=== PATIENT | female | born 1975 | race Caucasian/White ===

== ENCOUNTER 2019-09-11 07:04 | Outpatient (CLI) | payer BC, SELFPAY ==
--- NOTE | ~2019-09-11 | MM_ITS ---
EXAMINATION: MM screening [facility] BI w subhash HISTORY: Screening mammogram TECHNIQUE: Craniocaudal and mediolateral oblique 3-D tomosynthesis images were obtained and synthetic 2-D images were generated. CAD analysis was submitted and interpreted. COMPARISON: 04/04/2018, 03/10/2017, 09/07/2014 BREAST PARENCHYMAL COMPOSITION: There are scattered areas of fibroglandular density. FINDINGS: There is no evidence of suspicious mass, calcification, or architectural distortion to sugg est malignancy in either breast. There has been no suspicious interval change. IMPRESSION: 1. No mammographic evidence of malignancy. 2. Recommend routine screening mammography in one year. BI-RADS Category 1: Negative Reviewed, dictated and finalized at location A. [facility] [employer]
== END 2019-09-11 07:05 | disposition home or self-care (01) ==
LOC: ANHIMG 07:09
PROVIDERS: PCP Internal Medicine; Visit Provider Obstetrics & Gynecology
DX: Z12.31 Encounter for screening mammogram for malignant neoplasm of breast (principal)
CPT/HCPCS: 77063; 77067

== ENCOUNTER → 2020-12-27 06:39 | Outpatient (CLI) | payer BC, SELFPAY ==
[2020-12-27 19:22] LABS: SARS-CoV-2 RNA PCR Negative
== END ==
PROVIDERS: PCP Family Medicine; Visit Provider Internal Medicine Gastroenterology
DX: Z01.812 Encounter for preprocedural laboratory examination (principal); Z20.822 Contact with and (suspected) exposure to COVID-19
CPT/HCPCS: C9803; U0003; U0005

== ENCOUNTER 2020-12-30 01:31 | Day surgery (SDC) | payer BC, SELFPAY ==
[2020-12-20 13:41] VITALS: BMI 30.7
[2020-12-30 10:01] VITALS: BP 111/73; PULSE 69; RESP 18; TEMP 36.9; O2SAT 98; BMI 32.4
[2020-12-30] MEDS: LACTATED RINGERS 1,000 ML 150 ML IV CONT (10:13)
--- NOTE | 2020-12-30 10:34 | WPDANESEPPF ---
Anes - Initial Pre Proc Eval Procedure: Operation Date: 12/30/20 10:30 Proposed Procedures p Esophagogastroduodenoscopy - Paras Davies MD Date/Time: 12/30/20 10:34 Surgeon: Paras Davies MD Pre Op Diagnosis: dysphagia Patient Data Age: 45 Gender: F Height: 5 ft 7 in Weight: 93.9 kg Last Vital Signs Temp 36.9 C 12/30/20 10:01 Pulse 69 12/30/20 10:01 Resp 18 12/30/20 10:01 BP 111/73 12/30/20 10:01 Pulse Ox 98 12/30/20 10:01 Allergies Allergy/AdvReac Type Severity Reaction Status Date / Time amoxicillin Allergy Mild Rash Verified 12/30/20 10:00 propoxyphene Allergy Mild NAUSEA/VOMI Verified 12/30/20 10:00 TING bupropion Allergy Unknown SEIZURE Verified 12/30/20 10:00 erythromycin base Allergy Unknown N/V;DIZZINE Verified 12/30/20 10:00 SS latex Allergy Unknown RASH, Verified 12/30/20 10:00 ITCHING Penicillins Allergy Unknown RASH Verified 12/30/20 10:00 Home Medications Medication Instructions Recorded Confirmed Type multivitamin 1 tablet PO DAILY 09/19/19 12/30/20 History sumatriptan succinate 100 mg tablet See Rx Instructions PO .COMPLEX 03/25/20 12/30/20 Rx #10 tablet sertraline 50 mg tablet 50 mg PO DAILY #30 tablet 10/14/20 12/30/20 Rx phentermine 37.5 mg capsule 37.5 mg PO DAILY #20 cap 11/25/20 12/30/20 Rx valacyclovir 500 mg tablet 500 mg PO DAILY #30 tablet 11/25/20 12/30/20 Rx trazodone 50 mg tablet 50 mg PO QHS PRN #30 tablet 12/04/20 12/30/20 Rx omeprazole 40 mg capsule,delayed 40 mg PO DAILY #90 cap 12/09/20 12/30/20 Rx release spironolactone 100 mg PO DAILY 12/20/20 12/30/20 History Patient hx anesthesia problems: none Family hx anesthesia problems: none PMFSH Past Medical History Medical History Adult BMI 31.0-31.9 kg/sq m Weight gain Surgical History Surgical History History of gastric surgery History of loop recorder History of removal of ovarian cyst Hx of dilation and curettage Hx of tubal ligation Family History Family History Father Family history of migraine headaches Hypertension Sibling Hypertension Other Diabetes mellitus Family history of cardiovascular disease Social History Social History Smoking status: Never smoker Second hand tobacco smoke exposure: Yes Alcohol intake: never Substance use: never Substance use type: does not use Living arrangements: with family Spiritual care concerns: No Anes - Eval Final PreProcedure Day of Procedure 12/30/20 10:34 Patient weight: obese Heart: regular rate and rhythm Lungs: clear to auscultation Airway: Mallampati scale class 1 Neurological: alert and oriented Last oral intake: >/= 8 hours ASA classification: II Emergent: no Anesthetic plan: proceed Anesthesia type and monitoring: general GIVS and standard monitoring Informed Consent: The patient's anesthetic plan and its attendant risks and benefits were discussed with the patient/family/POA. Questions were solicited and answers provided to the satisfaction of the patient/family/POA.
--- NOTE | 2020-12-30 10:40 | PM.HPGS ---
History of Present Illness History of Present Illness Consent: Risks, benefits, and alternatives have been discussed and questions answered. Patient agrees to proceed with procedure. Chief complaint: dysphagia Narrative: Nat Riley is a 45 year old female with increasing difficulty swallowing. She has in the past been diagnosed with eosinophilic esophagitis. For a while she was on omeprazole but now uses only [id number] medicines. She does not have a significant amount of heartburn. She also has a left upper quadrant pain, a brief grabbing pain. Review of Systems Review of Systems: All systems reviewed & are unremarkable except as noted in HPI and below PMFSH Past Medical History Medical History Adult BMI 31.0-31.9 kg/sq m Weight gain Surgical History Surgical History History of gastric surgery History of loop recorder History of removal of ovarian cyst Hx of dilation and curettage Hx of tubal ligation Family History Family History Father Family history of migraine headaches Hypertension Sibling Hypertension Other Diabetes mellitus Family history of cardiovascular disease Social History Social History Smoking status: Never smoker Second hand tobacco smoke exposure: Yes Alcohol intake: never Substance use: never Substance use type: does not use Living arrangements: with family Spiritual care concerns: No Meds Home Medications and Allergies Home Medications Medication Instructions Recorded Confirmed Type multivitamin 1 tablet PO DAILY 09/19/19 12/30/20 History sumatriptan succinate 100 mg tablet See Rx Instructions PO .COMPLEX 03/25/20 12/30/20 Rx #10 tablet sertraline 50 mg tablet 50 mg PO DAILY #30 tablet 10/14/20 12/30/20 Rx phentermine 37.5 mg capsule 37.5 mg PO DAILY #20 cap 11/25/20 12/30/20 Rx valacyclovir 500 mg tablet 500 mg PO DAILY #30 tablet 11/25/20 12/30/20 Rx trazodone 50 mg tablet 50 mg PO QHS PRN #30 tablet 12/04/20 12/30/20 Rx omeprazole 40 mg capsule,delayed 40 mg PO DAILY #90 cap 12/09/20 12/30/20 Rx release spironolactone 100 mg PO DAILY 12/20/20 12/30/20 History Allergies Allergy/AdvReac Type Severity Reaction Status Date / Time amoxicillin Allergy Mild Rash Verified 12/30/20 10:00 propoxyphene Allergy Mild NAUSEA/VOMI Verified 12/30/20 10:00 TING bupropion Allergy Unknown SEIZURE Verified 12/30/20 10:00 erythromycin base Allergy Unknown N/V;DIZZINE Verified 12/30/20 10:00 SS latex Allergy Unknown RASH, Verified 12/30/20 10:00 ITCHING Penicillins Allergy Unknown RASH Verified 12/30/20 10:00 Vital Signs Vital Signs - 24 hr 12/30/20 10:01 Temperature 36.9 C Pulse Rate 69 Respiratory Rate 18 Blood Pressure 111/73 Pulse Oximetry 98 Exam Const: General: alert Orientation/consciousness: patient oriented x3 Resp: Auscultation: clear to auscultation bilaterally Cardio: Rhythm: regular rhythm GI: GI Palp: Yes Soft to palpation and No Tenderness to palpation present (GI) Neuro: General: patient oriented x3 Assessment and Plan Assessment and plan (1) Dysphagia: Code(s): R13.10 - Dysphagia, unspecified Status: Acute Assessment and Plan: EGD with possible biopsy or dilatation or cautery.
[2020-12-30 11:10] VITALS: BP 101/59; PULSE 76; RESP 21; O2SAT 97
--- NOTE | 2020-12-30 11:11 | SUR.OPER ---
esophageal balloon 15-18 mm, lot [id number], exp 10/10/2022
[2020-12-30 11:20] VITALS: BP 105/76; PULSE 79; RESP 28; O2SAT 97
[2020-12-30 11:30] VITALS: BP 108/64; PULSE 59; RESP 17; O2SAT 98
== END 2020-12-30 11:45 | disposition home or self-care (01) ==
PROVIDERS: PCP Family Medicine; Visit Provider Internal Medicine Gastroenterology
PROC: 0DJ08ZZ Inspection of Upper Intestinal Tract, Via Natural or Artificial Opening Endoscopic (ICD-10-PCS; CPT 43235; principal; 2020-12-30 10:30)
DX: R13.10 Dysphagia, unspecified (principal); K22.2 Esophageal obstruction; K20.0 Eosinophilic esophagitis; K25.9 Gastric ulcer, unspecified as acute or chronic, without hemorrhage or perforation; K29.70 Gastritis, unspecified, without bleeding
CPT/HCPCS: 43249; 43239; 87081; 88305; C1726; J2704; J7120

== ENCOUNTER 2021-02-24 07:20 | Outpatient (CLI) | payer BC, SELFPAY ==
--- NOTE | ~2021-02-24 | MM_ITS ---
EXAMINATION: MM screening [facility] w subhash HISTORY: Screening TECHNIQUE: Craniocaudal and mediolateral oblique 3-D tomosynthesis images were obtained and synthetic 2-D images were generated. CAD analysis was submitted and interpreted. COMPARISON: Comparison to multiple prior studies sequentially, with oldest reviewed study dated 09/07. BREAST PARENCHYMAL COMPOSITION: There are scattered areas of fibroglandular density. FINDINGS: There is no evidence of suspicious mass, calcification, or architectural distortion to sugg est malignancy in either breast. There has been no suspicious interval change. IMPRESSION: 1. No mammographic evidence of malignancy. 2. Recommend routine screening mammography in one year. BI-RADS Category 1: Negative Reviewed, dictated and finalized at location A.
== END 2021-02-24 07:21 | disposition home or self-care (01) ==
LOC: ANHIMG 07:23
PROVIDERS: PCP Family Medicine; Visit Provider Obstetrics & Gynecology
DX: Z12.31 Encounter for screening mammogram for malignant neoplasm of breast (principal)
CPT/HCPCS: 77063; 77067

== ENCOUNTER → 2021-04-24 00:27 | Outpatient (CLI) | payer BC, SELFPAY ==
[2021-04-24 19:52] LABS: SARS-CoV-2 RNA PCR Negative
== END ==
PROVIDERS: PCP Family Medicine; Visit Provider Physician Assistant Medical
DX: J02.9 Acute pharyngitis, unspecified (principal); R51.9 Headache, unspecified; Z20.822 Contact with and (suspected) exposure to COVID-19
CPT/HCPCS: C9803; U0003; U0005

== ENCOUNTER → 2021-08-07 01:31 | Outpatient (CLI) | payer BC, SELFPAY ==
[2021-08-07 20:34] LABS: SARS-CoV-2 RNA PCR Negative
== END ==
PROVIDERS: PCP Family Medicine; Visit Provider Nurse Practitioner Family
DX: R68.89 Other general symptoms and signs (principal); Z20.822 Contact with and (suspected) exposure to COVID-19
CPT/HCPCS: C9803; U0003; U0005

== ENCOUNTER 2021-11-09 13:41 | Outpatient (CLI) | payer BC, SELFPAY ==
--- NOTE | ~2021-11-09 | XR_ITS ---
EXAM: XR knee LT 2V HISTORY: M25.562 - TWISTING INJURY 5 DAYS AGO, PAIN ENTIRE KNEE COMPARISON: None available FINDINGS: Subjectively decreased mineralization. No acute fracture or dislocation. Mild patellofemor al osteophytosis. Small volume joint effusion. Faintly calcified spherical bodies in the anterior michael nt possibly represent loose joint bodies. No lytic or blastic lesions. IMPRESSION: No acute osseous abnormality. Degenerative changes described above. Reviewed, dictated and finalized at location K.
== END 2021-11-09 13:42 | disposition home or self-care (01) ==
LOC: ANHIMG 13:44
PROVIDERS: PCP Family Medicine; Visit Provider Physician Assistant Medical
DX: M25.562 Pain in left knee (principal)
CPT/HCPCS: 73560

== ENCOUNTER 2021-12-22 17:05 | Outpatient (CLI) | payer BC, SELFPAY ==
--- NOTE | ~2021-12-22 | MR_ITS ---
EXAMINATION: MR knee LT wo con DATE: 12/22/2021 17:46 INDICATION: EXAMINATION: MR knee LT wo con DATE: 12/22/2021 17:46 INDICATION: Lateral left knee pain. TECHNIQUE: Magnetic resonance imaging (MRI) of the left knee was performed without intravenous contra st. Sequences included axial PD-weighted FS FSE, coronal PD-weighted FSE and PD-weighted FS FSE, sagi ttal PD-weighted FSE, and sagittal T2-weighted FS FSE. COMPARISON: X-ray 11/09/2021 FINDINGS: Medial compartment: Obliquely oriented undersurface tear of the posterior horn and body of the medial meniscus. Mild diff use cartilage thinning and osteophytosis. Lateral compartment: Intact lateral meniscus. Mild cartilage thinning and osteophytosis. Patellofemoral compartment: Full-thickness cartilage loss along the median ridge with subjacent marrow change. Retinacula and ext ensor mechanism are intact. Ligaments and tendons: ACL, PCL, LCL, and MCL are intact. Medial and lateral tendons are intact. Fluid: Moderate volume joint fluid is present. Osseous/other: Bone marrow signal is benign and homogenous. 11 and 7 mm rounded mixed signal intensity lesions withi n the infrapatellar fat pad with some adjacent edematous change IMPRESSION: 1. Oblique tear of the posterior horn/body, medial meniscus. 2. The calcified areas seen in the prior radiograph likely represent chronic changes in the infrapate llar fat pad. 3. Chondromalacia patellae. Reviewed, dictated and finalized at location K. IMPRESSION: 1. Oblique tear of the posterior horn/body, medial meniscus. 2. The calcified areas seen in the prior radiograph likely represent chronic ch anges in the infrapatellar fat pad. 3. Chondromalacia patellae.
== END 2021-12-22 17:06 ==
PROVIDERS: PCP Family Medicine; Visit Provider Physician Assistant Medical
DX: S83.242A Other tear of medial meniscus, current injury, left knee, initial encounter (principal); X58.XXXA Exposure to other specified factors, initial encounter
CPT/HCPCS: 73721

== ENCOUNTER → 2022-01-16 02:21 | Outpatient (CLI) | payer BC, SELFPAY ==
[2022-01-16 16:50] LABS: SARS-CoV-2 RNA PCR Negative
== END ==
PROVIDERS: PCP Orthopaedic Surgery; Visit Provider Orthopaedic Surgery
DX: R68.89 Other general symptoms and signs (principal); Z20.822 Contact with and (suspected) exposure to COVID-19
CPT/HCPCS: C9803; U0003; U0005

== ENCOUNTER 2022-03-02 07:39 | Outpatient (CLI) | payer BC, SELFPAY ==
--- NOTE | ~2022-03-02 | MM_ITS ---
EXAMINATION: MM screening [facility] w subhash HISTORY: Screening mammogram TECHNIQUE: Craniocaudal and mediolateral oblique 3-D tomosynthesis images were obtained and synthetic 2-D images were generated. CAD analysis was submitted and interpreted. COMPARISON: 02/24/2021, 09/11/2019, 04/04/2018 bilateral screening mammogram examinations BREAST PARENCHYMAL COMPOSITION: There are scattered areas of fibroglandular density. FINDINGS: There is no evidence of suspicious mass, calcification, or architectural distortion to sugg est malignancy in either breast. There has been no suspicious interval change. IMPRESSION: 1. No mammographic evidence of malignancy. 2. Recommend routine screening mammography in one year. BI-RADS Category 1: Negative Reviewed, dictated and finalized at location A.
== END 2022-03-02 07:40 | disposition home or self-care (01) ==
LOC: ANHIMG 07:44
PROVIDERS: PCP Family Medicine; Visit Provider Obstetrics & Gynecology
DX: Z12.31 Encounter for screening mammogram for malignant neoplasm of breast (principal)
CPT/HCPCS: 77063; 77067

== ENCOUNTER 2022-12-17 01:37 | Day surgery (SDC) | payer BC, SELFPAY ==
[2022-12-07 14:46] VITALS: BMI 32.4
--- NOTE | 2022-12-16 15:44 | PM.HPGS ---
History of Present Illness History of Present Illness Consent: Risks, benefits, and alternatives have been discussed and questions answered. Patient agrees to proceed with procedure. Chief complaint: eosinophilic esophagitis, dysphagia Narrative: Nat Riley is a 47 year old female known to have eosinophilic esophagitis. She has previously had several treatments for esophageal stricture. A few years ago, her last EGD revealed a Schatzki's ring that which was dilated. Also biopsies continued to show persistent high eosinophil count of 70 per high-power field. She has used omeprazole in the past but now is primarily using [id number] Tums for symptoms she is having more frequent episodes of dysphagia with food getting stuck. Review of Systems Review of Systems: All systems reviewed & are unremarkable except as noted in HPI and below PMFSH Past Medical History Medical History (Updated 11/23/22 @ 11:16 by Carolina Conde, [employer]) Adult BMI 31.0-31.9 kg/sq m BMI 33.0-33.9,adult BMI 34.0-34.9,adult Colon cancer screening Dysphagia Eosinophilic esophagitis Gastritis Medial meniscus tear Weight gain Surgical History Surgical History History of gastric surgery History of loop recorder History of removal of ovarian cyst Hx of dilation and curettage Hx of tubal ligation Family History Family History Father Family history of migraine headaches Hypertension Malignant neoplasm of prostate Sibling Hypertension Suicide Mother No problems noted. Other Diabetes mellitus Family history of cardiovascular disease Social History Social History Social History: Recently lost brother to suicide. Smoking status: Never smoker Second hand tobacco smoke exposure: Yes Alcohol intake: never Alcohol use details: 2 PER YEAR Substance use: never Substance use type: does not use Living arrangements: with family Occupation/Education: occupation Additional occupation/education comments: [employer] Gender identity (if verbalized by the patient): Female Sexual Orientation (if Verbalized by the Patient): Straight or Heterosexual Spiritual care concerns: No Meds Home Medications and Allergies Home Medications Medication Instructions Recorded Confirmed Type multivitamin 1 tablet PO DAILY 09/19/19 12/17/22 History alprazolam 0.5 mg tablet 0.25 mg PO BID PRN anxiety 04/01/22 12/17/22 History cholecalciferol (vitamin D3) 125 125 mcg PO DAILY 04/01/22 12/17/22 History mcg (5,000 unit) tablet (Vitamin D3) valacyclovir 500 mg tablet 500 mg PO DAILY PRN Cold Sores 04/01/22 12/17/22 History fluticasone propionate 220 2 puff .Route .COMPLEX #12 grams 11/23/22 12/17/22 Rx mcg/actuation HFA aerosol inhaler omeprazole 40 mg capsule,delayed 40 mg PO DAILY #30 caps 11/23/22 12/17/22 Rx release Allergies Allergy/AdvReac Type Severity Reaction Status Date / Time amoxicillin Allergy Mild Rash Verified 12/17/22 09:33 propoxyphene Allergy Mild NAUSEA/VOMI Verified 12/17/22 09:33 TING bupropion Allergy Unknown SEIZURE Verified 12/17/22 09:33 erythromycin base Allergy Unknown N/V;DIZZINE Verified 12/17/22 09:33 SS latex Allergy Unknown RASH, Verified 12/17/22 09:33 ITCHING Penicillins Allergy Unknown RASH Verified 12/17/22 09:33 Exam Const: General: alert Orientation/consciousness: patient oriented x3 Resp: Auscultation: clear to auscultation bilaterally Cardio: Rhythm: regular rhythm GI: GI Palp: Yes Soft to palpation and No Tenderness to palpation present (GI) Neuro: General: patient oriented x3 Assessment and Plan Assessment and plan (1) Dysphagia: Code(s): R13.10 - Dysphagia, unspecified Status: Acute Assessment and Plan: EGD with possible biopsy or dilatation or caut
[2022-12-17 09:35] VITALS: BP 100/80; PULSE 85; RESP 18; TEMP 36.2; O2SAT 100; BMI 32.8
[2022-12-17] MEDS: LACTATED RINGERS 1,000 ML 150 ML IV CONT (09:37)
--- NOTE | 2022-12-17 10:19 | WPDANESEPPF ---
Anes - Initial Pre Proc Eval Procedure: Operation Date: 12/17/22 10:45 Proposed Procedures p Esophagogastroduodenoscopy - Paras Davies MD Date/Time: 12/17/22 10:19 Surgeon: Paras Davies MD Pre Op Diagnosis: eosinophilic esophagitis, dysphagia Patient Data Age: 47 Gender: F Height: 1.7 m Weight: 95 kg Last Vital Signs Temp 97.2 F L 12/17/22 09:35 Pulse 85 12/17/22 09:35 Resp 18 12/17/22 09:35 BP 100/80 12/17/22 09:35 Pulse Ox 100 12/17/22 09:35 O2 Del Method Room Air 12/17/22 09:35 Allergies Allergy/AdvReac Type Severity Reaction Status Date / Time amoxicillin Allergy Mild Rash Verified 12/17/22 09:33 propoxyphene Allergy Mild NAUSEA/VOMI Verified 12/17/22 09:33 TING bupropion Allergy Unknown SEIZURE Verified 12/17/22 09:33 erythromycin base Allergy Unknown N/V;DIZZINE Verified 12/17/22 09:33 SS latex Allergy Unknown RASH, Verified 12/17/22 09:33 ITCHING Penicillins Allergy Unknown RASH Verified 12/17/22 09:33 Home Medications Medication Instructions Recorded Confirmed Type multivitamin 1 tablet PO DAILY 09/19/19 12/17/22 History alprazolam 0.5 mg tablet 0.25 mg PO BID PRN anxiety 04/01/22 12/17/22 History cholecalciferol (vitamin D3) 125 125 mcg PO DAILY 04/01/22 12/17/22 History mcg (5,000 unit) tablet (Vitamin D3) valacyclovir 500 mg tablet 500 mg PO DAILY PRN Cold Sores 04/01/22 12/17/22 History fluticasone propionate 220 2 puff .Route .COMPLEX #12 grams 11/23/22 12/17/22 Rx mcg/actuation HFA aerosol inhaler omeprazole 40 mg capsule,delayed 40 mg PO DAILY #30 caps 11/23/22 12/17/22 Rx release Patient hx anesthesia problems: none Family hx anesthesia problems: none Results Review: All pre-operative results and documents have been reviewed as part of the pre-operative evaluation. [facility] Past Medical History Medical History (Updated 11/23/22 @ 11:16 by Carolina Conde APRN) Adult BMI 31.0-31.9 kg/sq m BMI 33.0-33.9,adult BMI 34.0-34.9,adult Colon cancer screening Dysphagia Eosinophilic esophagitis Gastritis Medial meniscus tear Weight gain Surgical History Surgical History History of gastric surgery History of loop recorder History of removal of ovarian cyst Hx of dilation and curettage Hx of tubal ligation Family History Family History Father Family history of migraine headaches Hypertension Malignant neoplasm of prostate Sibling Hypertension Suicide Mother No problems noted. Other Diabetes mellitus Family history of cardiovascular disease Social History Social History Social History: Recently lost brother to suicide. Smoking status: Never smoker Second hand tobacco smoke exposure: Yes Alcohol intake: never Alcohol use details: 2 PER YEAR Substance use: never Substance use type: does not use Living arrangements: with family Occupation/Education: occupation Additional occupation/education comments: [employer] Gender identity (if verbalized by the patient): Female Sexual Orientation (if Verbalized by the Patient): Straight or Heterosexual Spiritual care concerns: No Anes - Eval Final PreProcedure Day of Procedure 12/17/22 10:19 Patient weight: obese Heart: regular rate and rhythm Lungs: clear to auscultation Airway: Mallampati scale class II Neurological: alert and oriented Last oral intake: >/= 8 hours ASA classification: II Emergent: no Anesthetic plan: proceed Anesthesia type and monitoring: general GIVS and standard monitoring Results Review: All pre-operative results and documents have been reviewed as part of the pre-operative evaluation. Informed Consent: The patient's anesthetic plan and its attendant risks and benefits were discussed with the patient/family/POA. Questions were solicited
--- NOTE | 2022-12-17 10:42 | PM.HPGS ---
History of Present Illness History of Present Illness Consent: Risks, benefits, and alternatives have been discussed and questions answered. Patient agrees to proceed with procedure. Chief complaint: eosinophilic esophagitis, dysphagia Narrative: Nat Riley is a 47 year old female Review of Systems Review of Systems: All systems reviewed & are unremarkable except as noted in HPI and below [facility] Past Medical History Medical History (Updated 11/23/22 @ 11:16 by Carolina Conde, D[employer]) Adult BMI 31.0-31.9 kg/sq m BMI 33.0-33.9,adult BMI 34.0-34.9,adult Colon cancer screening Dysphagia Eosinophilic esophagitis Gastritis Medial meniscus tear Weight gain Surgical History Surgical History History of gastric surgery History of loop recorder History of removal of ovarian cyst Hx of dilation and curettage Hx of tubal ligation Family History Family History Father Family history of migraine headaches Hypertension Malignant neoplasm of prostate Sibling Hypertension Suicide Mother No problems noted. Other Diabetes mellitus Family history of cardiovascular disease Social History Social History Social History: Recently lost brother to suicide. Smoking status: Never smoker Second hand tobacco smoke exposure: Yes Alcohol intake: never Alcohol use details: 2 PER YEAR Substance use: never Substance use type: does not use Living arrangements: with family Occupation/Education: occupation Additional occupation/education comments: [employer] Gender identity (if verbalized by the patient): Female Sexual Orientation (if Verbalized by the Patient): Straight or Heterosexual Spiritual care concerns: No Meds Home Medications and Allergies Home Medications Medication Instructions Recorded Confirmed Type multivitamin 1 tablet PO DAILY 09/19/19 12/17/22 History alprazolam 0.5 mg tablet 0.25 mg PO BID PRN anxiety 04/01/22 12/17/22 History cholecalciferol (vitamin D3) 125 125 mcg PO DAILY 04/01/22 12/17/22 History mcg (5,000 unit) tablet (Vitamin D3) valacyclovir 500 mg tablet 500 mg PO DAILY PRN Cold Sores 04/01/22 12/17/22 History fluticasone propionate 220 2 puff .Route .COMPLEX #12 grams 11/23/22 12/17/22 Rx mcg/actuation HFA aerosol inhaler omeprazole 40 mg capsule,delayed 40 mg PO DAILY #30 caps 11/23/22 12/17/22 Rx release Allergies Allergy/AdvReac Type Severity Reaction Status Date / Time amoxicillin Allergy Mild Rash Verified 12/17/22 09:33 propoxyphene Allergy Mild NAUSEA/VOMI Verified 12/17/22 09:33 TING bupropion Allergy Unknown SEIZURE Verified 12/17/22 09:33 erythromycin base Allergy Unknown N/V;DIZZINE Verified 12/17/22 09:33 SS latex Allergy Unknown RASH, Verified 12/17/22 09:33 ITCHING Penicillins Allergy Unknown RASH Verified 12/17/22 09:33 Vital Signs Vital Signs - 24 hr 12/17/22 09:35 Temperature 36.2 C L Pulse Rate 85 Respiratory Rate 18 Blood Pressure 100/80 Pulse Oximetry 100 Oxygen Delivery Room Air Exam Const: General: alert Orientation/consciousness: patient oriented x3 Resp: Auscultation: clear to auscultation bilaterally Cardio: Rhythm: regular rhythm GI: GI Palp: Yes Soft to palpation and No Tenderness to palpation present (GI) Neuro: General: patient oriented x3 Assessment and Plan Assessment and plan (1) Dysphagia: Code(s): R13.10 - Dysphagia, unspecified Status: Acute Assessment and Plan: EGD with possible biopsy or dilatation or cautery. (2) Eosinophilic esophagitis: Code(s): K20.0 - Eosinophilic esophagitis Status: Acute
[2022-12-17 11:14] VITALS: BP 108/72; PULSE 81; RESP 22; O2SAT 95
[2022-12-17 11:24] VITALS: BP 100/65; PULSE 78; RESP 19; O2SAT 100
[2022-12-17 11:34] VITALS: BP 120/81; PULSE 78; RESP 19; O2SAT 100
== END 2022-12-17 11:48 | disposition home or self-care (01) ==
PROVIDERS: PCP Family Medicine; Visit Provider Internal Medicine Gastroenterology
PROC: 0DJ08ZZ Inspection of Upper Intestinal Tract, Via Natural or Artificial Opening Endoscopic (ICD-10-PCS; CPT 43235; principal; 2022-12-17 10:45)
DX: K22.2 Esophageal obstruction (principal); K29.70 Gastritis, unspecified, without bleeding; Z87.19 Personal history of other diseases of the digestive system; Z98.84 Bariatric surgery status; E66.9 Obesity, unspecified; Z68.32 Body mass index [BMI] 32.0-32.9, adult
CPT/HCPCS: 43249; 43239; 87081; 88305; C1726; J2704; J7120

== ENCOUNTER 2023-03-08 07:12 | Outpatient (CLI) | payer BC, SELFPAY ==
--- NOTE | ~2023-03-08 | MM_ITS ---
EXAMINATION: MM screening [facility] BI w subhash HISTORY: Screening mammogram TECHNIQUE: Craniocaudal and mediolateral oblique 3-D tomosynthesis images were obtained and synthetic 2-D images were generated. CAD analysis was submitted and interpreted. COMPARISON: 03/02/2022, 02/24/2021, 09/11/2019 bilateral screening mammogram examinations BREAST PARENCHYMAL COMPOSITION: There are scattered areas of fibroglandular density. FINDINGS: There is no evidence of suspicious mass, calcification, or architectural distortion to sugg est malignancy in either breast. There has been no suspicious interval change. IMPRESSION: 1. No mammographic evidence of malignancy. 2. Recommend routine screening mammography in one year. BI-RADS Category 1: Negative Reviewed, dictated and finalized at location A.
== END 2023-03-08 07:13 | disposition home or self-care (01) ==
LOC: CHSIMG 07:13
PROVIDERS: PCP Family Medicine; Visit Provider Obstetrics & Gynecology
DX: Z12.31 Encounter for screening mammogram for malignant neoplasm of breast (principal)
CPT/HCPCS: 77063; 77067

== ENCOUNTER 2023-07-23 04:24 | Day surgery (SDC) | payer BC, SELFPAY ==
--- NOTE | 2023-07-20 16:36 | PM.IMHP ---
H&P: HPI History of Present Illness Date/Time: 07/20/23 16:36 Chief Complaint: pelvic pain with left ovarian cyst Narrative: 47-year-old 5 para 4 admitted for laparoscopic bilateral cystectomy. Patient has pain discomfort and dyspareunia. She has moderate size cyst on the left which is in the side this caused her pain. Risks and benefits of the procedure reviewed including exclusive of , aspiration pneumonia, bleeding, transfusion, perforation injury to bowel, bladder, ureters, or other internal organs with the need for open laparotomy. She received the [employer] handout entitled laparoscopy. She had all questions answered. She has to proceed. REPLACED BY [facility] Past Medical History Medical History Adult BMI 31.0-31.9 kg/sq m BMI 33.0-33.9,adult BMI 34.0-34.9,adult Colon cancer screening Dysphagia Eosinophilic esophagitis Gastritis Medial meniscus tear Weight gain Surgical History Surgical History History of gastric surgery History of loop recorder History of removal of ovarian cyst Hx of dilation and curettage Hx of tubal ligation Family History Family History Father Family history of migraine headaches Hypertension Malignant neoplasm of prostate Sibling Hypertension Suicide Mother No problems noted. Other Diabetes mellitus Family history of cardiovascular disease Social History Social History Social History: Recently lost brother to suicide. Smoking status: Never smoker Second hand tobacco smoke exposure: Yes Alcohol intake: never Alcohol use details: 2 PER YEAR Substance use: never Substance use type: does not use Living arrangements: with family Occupation/Education: occupation Additional occupation/education comments: [employer] Gender identity (if verbalized by the patient): Female Sexual Orientation (if Verbalized by the Patient): Straight or Heterosexual Spiritual care concerns: No Meds Home Medications and Allergies Home Medications Medication Instructions Recorded Confirmed Type multivitamin 1 tablet PO DAILY 09/19/19 03/04/23 History alprazolam 0.5 mg tablet 0.25 mg PO BID PRN anxiety 04/01/22 03/04/23 History cholecalciferol (vitamin D3) 125 125 mcg PO DAILY 04/01/22 03/04/23 History mcg (5,000 unit) tablet (Vitamin D3) omeprazole 40 mg capsule,delayed 40 mg PO DAILY #30 caps 11/23/22 03/04/23 Rx release valacyclovir 500 mg tablet 500 mg PO DAILY PRN Cold Sores #30 02/17/23 03/04/23 Rx tabs clindamycin HCl 150 mg capsule 150 mg PO Q6H #40 caps 03/04/23 03/04/23 Rx prednisone 10 mg tablet 30 mg PO DAILY #15 tabs 03/04/23 03/04/23 Rx Allergies Allergy/AdvReac Type Severity Reaction Status Date / Time amoxicillin Allergy Mild Rash Verified 03/04/23 08:37 propoxyphene Allergy Mild NAUSEA/VOMI Verified 03/04/23 08:37 TING bupropion Allergy Unknown SEIZURE Verified 03/04/23 08:37 erythromycin base Allergy Unknown N/V;DIZZINE Verified 03/04/23 08:37 SS latex Allergy Unknown RASH, Verified 03/04/23 08:37 ITCHING Penicillins Allergy Unknown RASH Verified 03/04/23 08:37 Exam Const: General: cooperative, healthy appearing and comfortable Nutritional Appearance: average body habitus Orientation/consciousness: oriented to person, oriented to place and oriented to time Resp: Effort & Inspection: normal respiratory effort Cardio: Rate: regular rate Rhythm: regular rhythm Heart sounds: S1 normal heart sound present and S2 normal heart sound present GI: Inspection: normal to inspection : External Female Exam: normal external appearance Speculum Exam - Vagina: normal appearance of the vagina Speculum Exam - Cervix: Cervix absent Bimanual exam- vagina & uterus: uterus absent Bimanual Exam- Adnexa, oth
--- NOTE | 2023-07-21 10:22 | PC.NURSE ---
Report to the Outpatient Waiting Room, entrance under the green pavilion located off [facility], at time ____1200___ on date __07/23_. Planned Procedure Time: ___1400 . Time changes happen often and if your time is changed the preop area will call you the afternoon before. - You and your visitor will be asked to self-screen and do not enter if you have any COVID symptoms. - A mask is optional within the hospital at this time. Patients may have clear liquids (water, carbonated beverages, clear teas, apple juice) until 3 hours prior to surgery with a maximum of 20 ounces. - No food from midnight until time of surgery Take the following medications with a SIP of water the morning of surgery: xanax if needed DO NOT STOP ANY OF YOUR OTHER PRESCRIPTION MEDICATIONS PRIOR TO SURGERY ?EXCEPT THE FOLLOWING Medications to discontinue per physician per patient stopped multi vitamins 07/16 Date to take last dose Please no make-up, nail urdu, hairspray, perfume, deodorant, or body powder the day of surgery. No jewelry (including any body piercings) or valuables the day of surgery, leave them at home. Please take a shower or bath the night before, or the morning of, surgery with an antibacterial soap. Wear comfortable, loose fitting clothing. Children are encouraged to wear pajamas. - Jewelry must be removed prior to entering the operating room. Rings and piercings that are not removed may be cut off. - The hospital will not accept responsibility for valuables. - Please leave all valuables, including medications, at home the day of surgery. If you are going home after surgery, a licensed boom truck driver must drive you home. - NO public transportation without another adult if you receive anesthesia. - We recommend that an adult stay with you for 24 hours following discharge. - We also recommend that you do not drive, make important decision, drink alcoholic beverages, or take any drugs that were not prescribed by your health care provider for at least 24 hours after your discharge time. For Pediatric surgeries, we recommend two adults accompany the child home. Follow any additional instructions given to you from your surgeon. If you or anyone in your household have experienced Covid symptoms in the past week, please notify your surgeon or the nurse liaison at the phone number below for possible testing. Telephone instructions given to patient and asked if any additional questions and then verbalized understanding. Patient advised to call surgeon office or pre surgery nurse liaison [phone] if any additional questions.
[2023-07-21 10:25] VITALS: BMI 31.6
[2023-07-23] VITALS (10 sets, daily range): BP systolic 104–131; BP diastolic 62–83; PULSE 57–86; RESP 11–16; TEMP 36.3–36.6; O2SAT 97–100
--- NOTE | 2023-07-23 06:23 | WPDHPUPDATE1 ---
History and Physical Update Update Date/Time: 07/23/23 06:23 History and Physical has been reviewed, including an updated exam of the patient. There are NO changes in the patient's condition. Risks, benefits, and alternatives have been discussed and questions answered. Patient agrees to proceed with procedure.
--- NOTE | 2023-07-23 12:34 | WPDANESEPPF ---
Anes - Initial Pre Proc Eval Procedure: Operation Date: 07/23/23 14:00 Proposed Procedures p Laparoscopic Left Ovarian Cystectomy, Possible Left Salpingo Oophorectomy - Lauri Cabrera MD Date/Time: 07/23/23 12:34 Surgeon: Lauri Cabrera MD Pre Op Diagnosis: pain, left ovarian cyst Patient Data Age: 47 Gender: F Height: 1.7 m Weight: 91 kg Allergies Allergy/AdvReac Type Severity Reaction Status Date / Time amoxicillin Allergy Mild Rash Verified 07/21/23 10:09 propoxyphene Allergy Mild NAUSEA/VOMI Verified 07/21/23 10:09 TING bupropion Allergy Unknown SEIZURE Verified 07/21/23 10:09 erythromycin base Allergy Unknown N/V;DIZZINE Verified 07/21/23 10:09 SS latex Allergy Unknown RASH, Verified 07/21/23 10:09 ITCHING Penicillins Allergy Unknown RASH Verified 07/21/23 10:09 Home Medications Medication Instructions Recorded Confirmed Type multivitamin 1 tablet PO DAILY 09/19/19 07/21/23 History alprazolam 0.5 mg tablet 0.5 mg PO BID PRN anxiety 04/01/22 07/21/23 History cholecalciferol (vitamin D3) 125 125 mcg PO DAILY 04/01/22 07/21/23 History mcg (5,000 unit) tablet (Vitamin D3) escitalopram oxalate 10 mg tablet 10 mg PO DAILY 07/21/23 07/21/23 History valacyclovir 500 mg tablet 500 mg PO PRN PRN Cold Sores 07/21/23 07/21/23 History hydrocodone 5 mg-acetaminophen 325 1 tablet PO Q4H PRN pain #20 tabs 07/23/23 Rx mg tablet Patient hx anesthesia problems: post op nausea/vomiting Family hx anesthesia problems: none Results Review: All pre-operative results and documents have been reviewed as part of the pre-operative evaluation. [facility] Past Medical History Medical History Adult BMI 31.0-31.9 kg/sq m BMI 33.0-33.9,adult BMI 34.0-34.9,adult Colon cancer screening Dysphagia Eosinophilic esophagitis Gastritis Medial meniscus tear Weight gain Surgical History Surgical History History of gastric surgery History of loop recorder History of removal of ovarian cyst Hx of dilation and curettage Hx of tubal ligation Family History Family History Father Family history of migraine headaches Hypertension Malignant neoplasm of prostate Sibling Hypertension Suicide Mother No problems noted. Other Diabetes mellitus Family history of cardiovascular disease Social History Social History Social History: Recently lost brother to suicide. Smoking status: Never smoker Second hand tobacco smoke exposure: Yes Alcohol intake: never Alcohol use details: 2 PER YEAR Substance use: never Substance use type: does not use Living arrangements: with family Occupation/Education: occupation Additional occupation/education comments: [employer] Gender identity (if verbalized by the patient): Female Sexual Orientation (if Verbalized by the Patient): Straight or Heterosexual Spiritual care concerns: No Anes - Eval Final PreProcedure Day of Procedure 07/23/23 12:34 Patient weight: overweight Heart: regular rate and rhythm Lungs: clear to auscultation Airway: Mallampati scale class II Last oral intake: >/= 8 hours ASA classification: II Emergent: no Anesthetic plan: proceed Anesthesia type and monitoring: general ETT and standard monitoring Results Review: All pre-operative results and documents have been reviewed as part of the pre-operative evaluation. Informed Consent: The patient's anesthetic plan and its attendant risks and benefits were discussed with the patient/family/POA. Questions were solicited and answers provided to the satisfaction of the patient/family/POA.
[2023-07-23] MEDS: LACTATED RINGERS 1,000 ML 30 ML IV CONT ×3 (12:56→16:02)
[2023-07-23] MEDS: SCOPOLAMINE 1.5 MG PATCH TRANSDERM (12:57)
[2023-07-23] MEDS: ACETAMINOPHEN 500 MG TABLET 1000 MG PO (12:57)
[2023-07-23] MEDS: KETOROLAC 15 MG/ML VIAL (*BKC) IV PUSH (12:57)
--- NOTE | 2023-07-23 15:19 | P.OP_ITS ---
Procedure Note - Detailed Date of Procedure 07/23/23 Pre-op Diagnosis pain, left ovarian cyst Post-op Diagnosis Same (Pelvic pain/left ovarian cyst/adhesions) Procedure Performed laparoscopy with destruction of left ovarian cyst and lysis of adhesions Surgeon Lauri Cabrera MD Anesthesia General Indications this is a 47-year-old status post hysterectomy with both ovaries remaining with severe left-sided pain Findings absent uterus. Adhesions in the pelvis. Normal-appearing right ovary and tube. Left ovarian cyst with adhesions surrounding the left adnexa Description of Procedure the patient was prepped draped in the normal sterile fashion placed in the dorsal lithotomy position. Under excellent general trach anesthesia sponge stick was placed in vagina and the bladder drained of clear urine. The weighted speculum was removed and gloves were changed. A supraumbilical incision made the Veress needle passed in the abdomen. Abdomen filled with CO2 gas [id number]. The 5mm trocar advanced under direct visualization with no injury seen. Patient placed in Trendelenburg and right left lateral quadrant incision made. 5mm incisions were made and the 5mm trocars advanced under direct visualization assuring the above findings were seen and using tug and pole with sharp dissection Endo Yulissa the adhesions were removed removed over the cul-de-sac and the left adnexa. Once this was finally cleared irrigation was undertaken and the ovarian cyst on the left was drained of clear fluid irrigation is and undertaken 1 more time the right ovary and tube appeared within normal limits. The instruments were withdrawn the gas removed from the abdomen. The incisions closed with 4 Monocryl and glue and the patient was awakened and went to recovery in satisfactory condition. All sponge, nee dle, instrument counts were correct. There were no immediate complications noted Estimated Blood Loss 5 Drains No Packing No Pathology None sent Complications No immediate complications Condition Stable Disposition PACU
[2023-07-23] MEDS: fentaNYL CITRATE INJ (*CRX) 100 MCG/2 ML VIAL 25 MCG IV PUSH ×2 (16:04→16:08)
[2023-07-23] MEDS: oxyCODONE HCL (*CRX) 5 MG TAB IR PO (16:32)
== END 2023-07-23 18:00 | disposition home or self-care (01) ==
PROVIDERS: PCP Family Medicine; Visit Provider Obstetrics & Gynecology
PROC: (CPT 49320; principal; 2023-07-23 14:00)
DX: N83.202 Unspecified ovarian cyst, left side (principal); N73.6 Female pelvic peritoneal adhesions (postinfective)
CPT/HCPCS: 58662; 36415; 86850; 86900; 86901; A9270; J0330; J1100; J1885; J2250; J2405; J2704; J3010; J7120

== ENCOUNTER 2023-09-22 18:47 | Emergency (ER) | payer BC, SELFPAY ==
--- NOTE | ~2023-09-22 | CT_ITS ---
EXAMINATION: CT brain wo con DATE: 09/22/2023 22:03 INDICATION: Change in migraine pattern TECHNIQUE: Computed tomography (CT) of the head was performed without intravenous contrast. Sagittal and coronal reconstructions were performed. The mA was adjusted according to patient size. Iterative reconstruction technique was employed. The dose-length product was 605.33 mGy-cm. COMPARISON: Head CT dated 04/07/2014 and brain MR dated 04/08/2014 FINDINGS: No acute intracranial hemorrhage, acute infarction or abnormal extra axial fluid collection. Ventricl es are normal and symmetric. No mass/mass effect. Mild mucosal thickening at the posterior left ethmo id sinus. The orbits and mastoid air cells are normal. IMPRESSION: 1. Normal brain. No acute intracranial process. Reviewed, dictated and finalized at location A. E OPERATOR
[2023-09-22 18:51] VITALS: BP 146/77; PULSE 95; RESP 18; TEMP 36.1; O2SAT 100
[2023-09-22 21:34] LABS: Basophils Absolute Auto 0.1 K/mm3 (0.0-0.1); Basophils Percent Auto 0.5 % (0.2-1.2); Eosinophils Absolute Auto 0.4 K/mm3 (0-0.3); Eosinophils Percent Auto 3.5 % (0-4.4); Hematocrit 42.5 % (37.0-47.0); Hemoglobin 13.6 g/dL (12.0-15.0); Immature Granulocyte Absolute 0.05 K/mm3 (0.00-0.031); Immature Granulocyte Percent A 0.5 % (0-0.5); Lymphocytes Absolute Auto 3.81 K/mm3 (0.9-3.2); Lymphocytes Percent Auto 38.3 % (18.3-44.2); Mean Corpuscular Volume 87.4 fl (80-100); Mean Platelet Volume 10.2 fl (7.4-10.4); Monocytes Absolute Auto 0.7 K/mm3 (0.1-0.6); Neutrophils Percent Auto 50.2 % (45.5-73.1); Platelet Count Result 274 k/mm3 (150-375); Red Blood Count 4.86 M/mm3 (4.2-5.4); Red Cell Distribution Width 13.4 % (11.5-14.5)
[2023-09-22 21:50] LABS: Alanine Aminotransferase 18 U/L (6-35); Albumin Level 4.1 g/dL (3.5-5.1); Alkaline Phosphatase 105 U/L (38-126); Anion Gap 6 mmol/L (8-16); Aspartate Amino Transferase 25 U/L (14-36); Bilirubin,Total 1.2 mg/dL (0.2-1.3); Blood Urea Nitrogen 6 mg/dL (7-17); Calcium 9.5 mg/dL (8.4-10.2); Carbon Dioxide 28 mmol/L (22-30); Chloride 105 mmol/L (98-107); Estimated CRCL calculation 100 ml/min; Estimated Glomerular Filt Rate > 60; Glucose 105 mg/dL (65-110); Potassium 4.1 mmol/L (3.4-5.0); Sodium 139 mmol/L (137-145)
--- NOTE | 2023-09-22 22:15 | ED.GENADULT ---
HPI - General Adult General Chief complaint: Unspecified Stated complaint: med reaction Time Seen by Provider: 09/22/23 21:40 Source: patient Mode of arrival: ambulatory Limitations: no limitations History of Present Illness HPI narrative: This is a 48-year-old female who presents to the ED for chief complaint of migraine x5 days. Reports she has been taking ibuprofen and Excedrin with minimal relief. She contacted PCP office to prescribe sumatriptan. Patient reports that this really did not help and she started having some vague bilateral facial tingling and chest tightness. Patient states that the pain is mainly in the left posterior scalp area but does radiate to the left eye at times. Reports she has somewhat frequent migraines but nothing usually lasting this long. Endorses nausea with a couple episodes of vomiting. Endorses photophobia. denies fevers, chills, neck pain, neck stiffness, diarrhea, urinary symptoms, abdominal pain, chest pain, shortness of breath. Denies numbness, weakness, vision change, speech change, confusion. Related Data Home Medications Medication Instructions Recorded Confirmed multivitamin 1 tablet PO DAILY 09/19/19 09/13/23 alprazolam 0.5 mg tablet 0.5 mg PO BID PRN anxiety 04/01/22 09/13/23 cholecalciferol (vitamin D3) 125 125 mcg PO DAILY 04/01/22 09/13/23 mcg (5,000 unit) tablet (Vitamin D3) Allergies Allergy/AdvReac Type Severity Reaction Status Date / Time amoxicillin Allergy Mild Rash Verified 09/13/23 14:27 propoxyphene Allergy Mild NAUSEA/VOMI Verified 09/13/23 14:27 TING bupropion Allergy Unknown SEIZURE Verified 09/13/23 14:27 erythromycin base Allergy Unknown N/V;DIZZINE Verified 09/13/23 14:27 SS latex Allergy Unknown RASH, Verified 09/13/23 14:27 ITCHING Penicillins Allergy Unknown RASH Verified 09/13/23 14:27 Review of Systems Review of Systems: All systems as dictated in [facility] Past Medical History Medical History Adult BMI 31.0-31.9 kg/sq m BMI 32.0-32.9,adult BMI 33.0-33.9,adult BMI 34.0-34.9,adult Colon cancer screening Dysphagia Eosinophilic esophagitis Gastritis Medial meniscus tear Weight gain Surgical History Surgical History History of gastric surgery History of loop recorder History of removal of ovarian cyst Hx of dilation and curettage Hx of tubal ligation Family History Family History Father Family history of migraine headaches Hypertension Malignant neoplasm of prostate Sibling Hypertension Suicide Mother No problems noted. Other Diabetes mellitus Family history of cardiovascular disease Social History Social History Social History: Recently lost brother to suicide. 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 HEAD: Normocephalic, atraumatic. EYES: PERRLA and EOMI. Photophobia present. ENT: Nares clear, no rhinorrhea or epistaxis. M
[2023-09-22] MEDS: KETOROLAC 15 MG/ML VIAL (*BKC) IV PUSH (23:01)
[2023-09-22] MEDS: SODIUM CHLORIDE 0.9% IV 1,000 ML 999 ML IV CONT (23:01)
[2023-09-22] MEDS: diphenhydrAMINE HCl INJ 50 MG/ML VIAL 25 MG IV PUSH (23:01)
[2023-09-22] MEDS: PROCHLORPERAZINE EDISYLATE 10 MG/2 ML VIAL IV PUSH (23:02)
[2023-09-23 00:13] VITALS: BP 137/82; PULSE 90; RESP 15; O2SAT 100
== END 2023-09-23 00:14 | disposition home or self-care (01) ==
PROVIDERS: Emergency Medicine; Emergency Provider Physician Assistant; PCP Family Medicine
DX: G43.909 Migraine, unspecified, not intractable, without status migrainosus (principal); K20.0 Eosinophilic esophagitis
CPT/HCPCS: 36415; 70450; 80053; 83735; 85025; 96361; 96374; 96375; 99284; J0780; J1200; J1885; J7030

== ENCOUNTER 2023-10-30 14:52 | Emergency (ER) | payer BC, SELFPAY ==
--- NOTE | ~2023-10-30 | XR_ITS ---
EXAM: XR knee RT min 4V DATE: 10/30/2023 15:23 HISTORY: fall/ pain in anterior Rt. knee . COMPARISON: None available. FINDINGS: Study limited by quantum mottle and multiple streak artifacts. Normal mineralization. No fr acture or dislocation. No lytic or blastic lesion. Joint spaces are maintained. No erosion or periost eal change. Soft tissues within normal limits. IMPRESSION: No acute osseous finding in the right knee. Reviewed, dictated and finalized at location K.
[2023-10-30 14:52] VITALS: BP 119/78; PULSE 104; RESP 18; TEMP 36.5; O2SAT 100
--- NOTE | 2023-10-30 15:05 | ED.LOWEXIN ---
HPI - Extremity Injury (Lower) General Chief Complaint: Extremity Injury, Lower Stated Complaint: fall; right knee pain Time Seen by Provider: 10/30/23 15:04 Source: patient Mode of arrival: ambulatory Limitations: no limitations History of Present Illness HPI Narrative: patient is a 48-year-old female with a right knee pain and fall today. She was going to see her doctor this week for beginnings of right knee pain as she has had issues with the left knee and prior surgeries for meniscus tears. she heard a pop noise and landed on the right knee thereafter today. Pain in the right knee. MD complaint: knee injury ( Right) Onset (ago): hour(s) Injury: Right: knee Type of Injury: blunt Place: home Severity: moderate Severity scale (1-10): 6 Relieving factors: nothing Exacerbating factors: weight bearing, movement and palpation Context: direct blow Associated symptoms: snap/pop sensation Other symptoms: none Treatments prior to arrival: other ( none) Related Data Home Medications Medication Instructions Recorded Confirmed multivitamin 1 tablet PO DAILY 09/19/19 09/13/23 alprazolam 0.5 mg tablet 0.5 mg PO BID PRN anxiety 04/01/22 09/13/23 cholecalciferol (vitamin D3) 125 125 mcg PO DAILY 04/01/22 09/13/23 mcg (5,000 unit) tablet (Vitamin D3) Allergies Allergy/AdvReac Type Severity Reaction Status Date / Time amoxicillin Allergy Mild Rash Verified 09/13/23 14:27 propoxyphene Allergy Mild NAUSEA/VOMI Verified 09/13/23 14:27 TING bupropion Allergy Unknown SEIZURE Verified 09/13/23 14:27 erythromycin base Allergy Unknown N/V;DIZZINE Verified 09/13/23 14:27 SS latex Allergy Unknown RASH, Verified 09/13/23 14:27 ITCHING Penicillins Allergy Unknown RASH Verified 09/13/23 14:27 Review of Systems Review of Systems: All systems reviewed & are unremarkable except as noted in HPI and below Constitutional: Constitutional: Reports no additional constitutional complaints Eyes: Eyes: Reports no additional eye complaints ENT: Reports system reviewed and no additional complaints, except as documented Cardiovascular: Cardiovascular: Reports no additional cardiovascular complaints Respiratory: Respiratory: Reports no additional respiratory complaints Gastrointestinal: Gastrointestinal: Reports no additional gastrointestinal complaints Genitourinary: Genitourinary: Reports no additional female genitourinary complaints Musculoskeletal: Musculoskeletal: Reports no additional musculoskeletal complaints Integumentary/Breasts: Skin/Breast: Reports system reviewed and no additional complaints, except as docu Neurologic: Reports system reviewed and no additional complaints, except as documented Psychiatric: Psychiatric: Reports no additional psychiatric complaints Endocrine: Endocrine: Reports no additional endocrine complaints Hematologic/Lymphatic: Hematologic/Lymphatic: Reports no additional hematologic/lymphatic complaints Allergic/Immunologic: Allergic/Immunologic: Reports no additional allergic/immunologic complaints PMFSH Past Medical History Medical History Adult BMI 31.0-31.9 kg/sq m BMI 32.0-32.9,adult BMI 33.0-33.9,adult BMI 34.0-34.9,adult Colon cancer screening Dysphagia Eosinophilic esophagitis Gastritis Medial meniscus tear Weight gain Surgical History Surgical History History of gastric surgery History of loop recorder History of removal of ovarian cyst Hx of dilation and curettage Hx of tubal ligation Family History Family History Father Family history of migraine headaches Hypertension Malignant neoplasm of prostate Sibling Hypertension Suicide Mother No problems noted. Other Diabetes mellitus Family history of cardiovascular disease Social History Social History (Reviewed 10/30/23 @ 15:05
[2023-10-30] MEDS: KETOROLAC (*BKC) 60 MG/2 ML VIAL IM (15:24)
[2023-10-30 15:57] VITALS: PULSE 75; RESP 20; O2SAT 94
== END 2023-10-30 15:57 | disposition home or self-care (01) ==
PROVIDERS: Emergency Provider Emergency Medicine; PCP Family Medicine
DX: M23.91 Unspecified internal derangement of right knee (principal); W19.XXXA Unspecified fall, initial encounter
CPT/HCPCS: 73564; 96372; 99283; J1885

== ENCOUNTER 2023-11-10 16:24 | Outpatient (CLI) | payer BC, SELFPAY ==
--- NOTE | ~2023-11-10 | MR_ITS ---
MRI of the right knee Clinical history: Injury Technique: Coronal proton density and proton density-weighted images, sagittal proton-density and T2 fat-sat images, and axial proton-density fat-saturated images were acquired. Findings: Anterior and posterior cruciate ligaments are intact. Medial collateral ligament and the la teral collateral ligament complex are intact. Popliteus tendon is intact. Medial and lateral menisci appear intact without definite tear. There is intrasubstance degenerative signal in the posterior horn of the medial meniscus. 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 Femora l trochlear cartilage is intact. Articular cartilage in the medial and lateral compartments demonstra te moderate thinning towards the medial joint line. Extensor mechanism is intact. There is mild nonspecific soft tissue edema at the intercondylar notch region and posterior to the PCL. No joint effusion or Ramon's cyst. Impression: No ligamentous injury or meniscal tear. Mild nonspecific soft tissue edema at the intercondylar notch and posterior to the PCL. Chondromalacia at the medial joint line and patella, as detailed above. Reviewed, dictated and finalized at [facility]. Impression: No ligamentous injury or meniscal tear. Mild nonspecific soft tissue edema at the intercondylar notch and posterior to the PCL. Chondromalacia at the medial joint line and patella, as detailed above.
== END 2023-11-10 16:25 | disposition home or self-care (01) ==
LOC: ANHIMG 16:25
PROVIDERS: PCP Family Medicine; Visit Provider Nurse Practitioner Family
DX: S89.90XA Unspecified injury of unspecified lower leg, initial encounter (principal); S83.209A Unspecified tear of unspecified meniscus, current injury, unspecified knee, initial encounter; X58.XXXA Exposure to other specified factors, initial encounter
CPT/HCPCS: 73721

== ENCOUNTER 2024-06-06 07:24 | Outpatient (CLI) | payer MEDICAID, SELFPAY ==
--- NOTE | ~2024-06-06 | MM_ITS ---
EXAMINATION: MM screening [facility] BI w subhash HISTORY: Screening mammogram TECHNIQUE: Craniocaudal and mediolateral oblique 3-D tomosynthesis images were obtained and synthetic 2-D images were generated. CAD analysis was submitted and interpreted. COMPARISON: 03/08/2023, 03/02/2022, 02/24/2021 BREAST PARENCHYMAL COMPOSITION:Not Dense. There are scattered areas of fibroglandular density. FINDINGS: No suspicious mass, calcification, or architectural distortion are identified in either berto ast to suggest malignancy. There has been no suspicious interval change. IMPRESSION: No mammographic evidence of malignancy. Recommend routine screening mammography in one year. BI-RADS Category 1: Negative Reviewed, dictated and finalized at location .
== END 2024-06-06 07:25 | disposition home or self-care (01) ==
LOC: CHSIMG 07:27
PROVIDERS: PCP Family Medicine; Visit Provider Obstetrics & Gynecology
DX: Z12.31 Encounter for screening mammogram for malignant neoplasm of breast (principal)
CPT/HCPCS: 77063; 77067

== ENCOUNTER 2024-06-08 11:06 | Outpatient (CLI) | payer MEDICAID, SELFPAY ==
--- NOTE | ~2024-06-08 | XR_ITS ---
Right Knee Technique: AP, lateral, and sunrise views were obtained. Clinical History: Injury Findings: No fracture or dislocation is seen. Osseous alignment is anatomic. Minimal patellar spurrin g noted. Soft tissues are unremarkable. No joint effusion is seen. Impression: Minimal patellar spurring. Reviewed, dictated and finalized at location . Impression: Minimal patellar spurring.
== END 2024-06-08 11:07 | disposition home or self-care (01) ==
LOC: MICIMG 11:07
PROVIDERS: PCP Family Medicine; Referring Provider Orthopaedic Surgery; Visit Provider Nurse Practitioner Family
DX: S89.90XA Unspecified injury of unspecified lower leg, initial encounter (principal); X58.XXXA Exposure to other specified factors, initial encounter
CPT/HCPCS: 73564

== ENCOUNTER 2024-07-01 12:35 | Outpatient (CLI) | payer OTHER, SELFPAY ==
--- NOTE | ~2024-07-01 | MR_ITS ---
EXAMINATION: MR knee RT wo con DATE: 07/01/2024 13:13 INDICATION: Unspecified right knee injury TECHNIQUE: Magnetic resonance imaging (MRI) of the right knee was performed without intravenous contr ast. Sequences included coronal PD-weighted FSE, coronal PD-weighted FS FSE, sagittal T2-weighted FS E, sagittal PD-weighted FS FSE and axial PD weighted fat saturated FSE. COMPARISON: None. FINDINGS: Medial compartment: Complex medial meniscal tear beginning in the meniscal body as a longitudinal horizontal tear extendi ng to the inferior articular surface along the inner third which extensive posteriorly transitioning to a longitudinal vertical tear plane extending between the superior and intra-articular surfaces at the junction of the mid to peripheral third near the posterior root. Articular cartilage is normal. Lateral compartment: Lateral meniscus is normal. Articular cartilage is normal. Patellofemoral compartment: Deep chondral ulceration at the patellar apical ridge and medial facet with mild underlying cortical irregularity. There is some additional deep chondral fissuring with mild subarticular edema-like sign al change at the superomedial aspect of the lateral patellar facet. Partial-thickness chondral fissur ing without degenerative subchondral changes at the inferior aspect of the medial trochlea. Ligaments and tendons: Anterior and posterior cruciate ligaments are normal. The medial collateral ligament and fibular kamran ateral ligament complex are normal. The extensor mechanism is normal. The visualized medial and later al hamstring tendons as well as the iliotibial band are normal. Fluid: Small right knee joint effusion at the suprapatellar pouch. No loose osteochondral bodies identified. Osseous/other: Tiny low signal intensity bone island at the anterior weightbearing lateral femoral condyle. No frac ture or pathologic marrow replacing process. IMPRESSION: 1. Complex tear of the body and posterior horn of the medial meniscus. 2. 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 3. Small right knee joint effusion. Reviewed, dictated and finalized at location [facility]. [facility] IMPRESSION: 1. Complex tear of the body and posterior horn of the medial meniscus. 2. Mild patellofemoral osteoarthritis with regions of moderate and high-grade c hondromalacia. 3. Small right knee joint effusion.
== END 2024-07-01 12:36 | disposition home or self-care (01) ==
PROVIDERS: PCP Family Medicine; Visit Provider Nurse Practitioner Family
DX: S83.231A Complex tear of medial meniscus, current injury, right knee, initial encounter (principal); X58.XXXA Exposure to other specified factors, initial encounter; M17.11 Unilateral primary osteoarthritis, right knee; M22.41 Chondromalacia patellae, right knee; M25.461 Effusion, right knee
CPT/HCPCS: 73721

== ENCOUNTER 2024-07-13 02:42 | Day surgery (SDC) | payer OTHER, SELFPAY ==
[2024-06-22 14:17] VITALS: BMI 29.0
--- NOTE | 2024-07-12 18:56 | P.PNAN_ITS ---
Anes - Eval Pre Procedure Procedure: Operation Date: 07/13/24 10:00 Proposed Procedures p Esophagogastroduodenoscopy - Ivan Noel MD Date/Time: 07/12/24 18:56 Surgeon: Bert Pre Op Diagnosis: Dysphagia Patient Data Age: 48 Gender: F Height: 1.7 m Weight: 84 kg Allergies Allergy/AdvReac Type Severity Reaction Status Date / Time amoxicillin Allergy Mild Rash Verified 07/10/24 10:47 propoxyphene Allergy Mild NAUSEA/VOMI Verified 07/10/24 10:47 TING bupropion Allergy Unknown SEIZURE Verified 07/10/24 10:47 erythromycin base Allergy Unknown N/V;DIZZINE Verified 07/10/24 10:47 SS latex Allergy Unknown RASH, Verified 07/10/24 10:47 ITCHING Penicillins Allergy Unknown RASH Verified 07/10/24 10:47 Home Medications Medication Instructions Recorded Confirmed Type multivitamin 1 tablet PO DAILY 09/19/19 07/11/24 History alprazolam 0.5 mg tablet 0.5 mg PO BID PRN anxiety 04/01/22 07/11/24 History cholecalciferol (vitamin D3) 125 125 mcg PO DAILY 04/01/22 07/11/24 History mcg (5,000 unit) tablet (Vitamin D3) valacyclovir 500 mg tablet 500 mg PO DAILY PRN Cold Sores 11/26/23 07/11/24 History budesonide 2 mg/10 mL oral 1 packet PO QAM AND QPM #600 mL 06/08/24 07/11/24 Rx suspension in packet (Eohilia) fluticasone propionate 220 2 puff inhalation Q12H #12 grams 06/08/24 07/11/24 Rx mcg/actuation HFA aerosol inhaler meloxicam 15 mg tablet 15 mg PO DAILY #30 tabs 06/08/24 07/11/24 Rx omeprazole 40 mg capsule,delayed 40 mg PO BID #60 caps 06/08/24 07/11/24 Rx release dupilumab 300 mg/2 mL subcutaneous 300 mg (2 mL) subcut WEEKLY 30 06/19/24 07/11/24 Rx pen injector (Dupixent) days #10 mL Patient hx anesthesia problems: post op nausea/vomiting and other (slow to wake up) Family hx anesthesia problems: none Results Review: All pre-operative results and documents have been reviewed as part of the pre- operative evaluation. [facility] Past Medical History Medical History (Updated 07/12/24 @ 18:58 by Freida Knight CRNA) Acute pain of left knee Adult BMI 31.0-31.9 kg/sq m BMI 32.0-32.9,adult BMI 33.0-33.9,adult BMI 34.0-34.9,adult Colon cancer screening Depression Dysphagia Eosinophilic esophagitis Fatigue Fever Gastritis Medial meniscus tear Neck pain on right side Pelvic pain Sore throat Weight gain Surgical History Surgical History (Updated 07/12/24 @ 18:57 by Freida Knight CRNA) H/O knee surgery H/O: hysterectomy History of gastric surgery History of loop recorder History of removal of ovarian cyst Hx of dilation and curettage Hx of tubal ligation Family History Family History Father Family history of migraine headaches Hypertension Malignant neoplasm of prostate Sibling Hypertension Suicide Mother No problems noted. Other Diabetes mellitus Family history of cardiovascular disease Social History Social History Social History: Recently lost brother to suicide. Smoking status: Never smoker Second hand tobacco smoke exposure: Yes Alcohol intake: current Alcohol use details: 2 PER YEAR Substance use: never Substance use type: does not use Do You Feel Safe in your Home?: Yes Lack of Transportation: No Lack of Food: Never True Current Housing: I Have Housing Concerned About Future Housing: No Difficulty Paying Gas/Electric Bills: No Difficulty Paying for Meds: No Currently Unemployed: No Education: Trade/Vocational Certificate Difficulty w/ Childcare or Family Care: No Living arrangements: with family Occupation/Education: occupation Additional occupation/education comments: [employer] Gender identity (if verbalized by the patient): Female Sexual Orientation (if Verbalized by the Patient): Straight or Heterosexual Spiritual care concerns: No Exam Day of Procedure 07/12/24 18:56
[2024-07-13 08:14] VITALS: BP 126/85; PULSE 77; RESP 18; TEMP 35.8; O2SAT 100; BMI 29.7
[2024-07-13] MEDS: LACTATED RINGERS 1,000 ML 150 ML IV CONT (08:21)
--- NOTE | 2024-07-13 08:23 | P.PNAN_ITS ---
Anes - Eval Final PreProcedure Day of Procedure 07/13/24 08:23 Patient weight: overweight Heart: regular rate and rhythm Lungs: clear to auscultation Airway: Mallampati scale class 1 Neurological: alert and oriented Last oral intake: >/= 8 hours ASA classification: II Emergent: no Anesthetic plan: proceed Anesthesia type and monitoring: general GIVS and standard monitoring Results Review: All pre-operative results and documents have been reviewed as part of the pre- operative evaluation. Informed Consent: The patient's anesthetic plan and its attendant risks and benefits were discussed with the patient/family/POA. Questions were solicited and answers provided to the satisfaction of the patient/family/POA.
--- NOTE | 2024-07-13 09:01 | PM.IMHP ---
H&P: HPI History of Present Illness Date/Time: 07/13/24 09:01 Chief Complaint: Dysphagia Narrative: the patient has a history of eosinophilic esophagitis, and has been taking omeprazole twice a day and fluticasone swallows, but is not experiencing any improvement Regarding dysphagia.. She will start Dupixent tomorrow. she is here for EGD and biopsies. Review of Systems Review of Systems: All systems reviewed & are unremarkable except as noted in HPI and below PMFSH Past Medical History Medical History (Updated 07/12/24 @ 18:58 by Freida Knight CRNA) Acute pain of left knee Adult BMI 31.0-31.9 kg/sq m BMI 32.0-32.9,adult BMI 33.0-33.9,adult BMI 34.0-34.9,adult Colon cancer screening Depression Dysphagia Eosinophilic esophagitis Fatigue Fever Gastritis Medial meniscus tear Neck pain on right side Pelvic pain Sore throat Weight gain Surgical History Surgical History (Updated 07/12/24 @ 18:57 by Freida Knight CRNA) H/O knee surgery H/O: hysterectomy History of gastric surgery History of loop recorder History of removal of ovarian cyst Hx of dilation and curettage Hx of tubal ligation Family History Family History Father Family history of migraine headaches Hypertension Malignant neoplasm of prostate Sibling Hypertension Suicide Mother No problems noted. Other Diabetes mellitus Family history of cardiovascular disease Social History Social History Social History: Recently lost brother to suicide. Smoking status: Never smoker Second hand tobacco smoke exposure: Yes Alcohol intake: current Alcohol use details: 2 PER YEAR Substance use: never Substance use type: does not use Do You Feel Safe in your Home?: Yes Lack of Transportation: No Lack of Food: Never True Current Housing: I Have Housing Concerned About Future Housing: No Difficulty Paying Gas/Electric Bills: No Difficulty Paying for Meds: No Currently Unemployed: No Education: Trade/Vocational Certificate Difficulty w/ Childcare or Family Care: No Living arrangements: with family Occupation/Education: occupation Additional occupation/education comments: [employer] Gender identity (if verbalized by the patient): Female Sexual Orientation (if Verbalized by the Patient): Straight or Heterosexual Spiritual care concerns: No Meds Home Medications and Allergies Home Medications Medication Instructions Recorded Confirmed Type multivitamin 1 tablet PO DAILY 09/19/19 07/13/24 History alprazolam 0.5 mg tablet 0.5 mg PO BID PRN anxiety 04/01/22 07/13/24 History cholecalciferol (vitamin D3) 125 125 mcg PO DAILY 04/01/22 07/13/24 History mcg (5,000 unit) tablet (Vitamin D3) valacyclovir 500 mg tablet 500 mg PO DAILY PRN Cold Sores 11/26/23 07/13/24 History budesonide 2 mg/10 mL oral 1 packet PO QAM AND QPM #600 mL 06/08/24 07/13/24 Rx suspension in packet (Eohilia) fluticasone propionate 220 2 puff inhalation Q12H #12 grams 06/08/24 07/13/24 Rx mcg/actuation HFA aerosol inhaler meloxicam 15 mg tablet 15 mg PO DAILY #30 tabs 06/08/24 07/13/24 Rx omeprazole 40 mg capsule,delayed 40 mg PO BID #60 caps 06/08/24 07/13/24 Rx release dupilumab 300 mg/2 mL subcutaneous 300 mg (2 mL) subcut WEEKLY 30 06/19/24 07/13/24 Rx pen injector (Dupixent) days #10 mL Allergies Allergy/AdvReac Type Severity Reaction Status Date / Time amoxicillin Allergy Mild Rash Verified 07/13/24 08:12 propoxyphene Allergy Mild NAUSEA/VOMI Verified 07/13/24 08:12 TING bupropion Allergy Unknown SEIZURE Verified 07/13/24 08:12 erythromycin base Allergy Unknown N/V;DIZZINE Verified 07/13/24 08:12 SS latex Allergy Unknown RASH, Verified 07/13/24 08:12 ITCHING Penicillins Allergy Unknown RASH Verified 07/13/24 08:12 Vital Signs Vital Signs - 24 hr 07/13/24 08:14 Temperature 96.5 F L Pulse Rate 77 Respiratory Rate 18 Blood Pressure 126/85 Pulse Oximetry 100 Oxygen Delivery Room Air Exam Const: General: cooperative and healthy appearing Resp: Effort & Inspection: normal respiratory effort and able to speak in complete sentences Auscultation: clear to auscultation bilaterally Cardio: Rate: regular rate Rhythm: regular rhythm GI: Inspection: normal to inspection GI Palp: No No hepatosplenomegaly present Auscultation: normal bowel sounds Rectal Exam: deferred Skin: General skin exam: normal color Psych: Appearance: grossly normal Mental Status: mental status grossly normal Assessment and Plan Assessment and plan (1) Dysphagia: Code(s): R13.10 - Dysphagia, unspecified Status: Acute Assessment and Plan: The patient is deemed a good candidate for the procedure. Consent signed. Will proceed. (2) Eosinophilic esophagitis: Code(s): K20.0 - Eosinophilic esophagitis Status: Acute
[2024-07-13 09:25] VITALS: BP 108/66; PULSE 71; RESP 20; O2SAT 99
[2024-07-13 09:35] VITALS: BP 109/72; PULSE 63; RESP 18; O2SAT 99
[2024-07-13 09:45] VITALS: BP 124/81; PULSE 65; RESP 20; O2SAT 100
== END 2024-07-13 09:59 | disposition home or self-care (01) ==
PROVIDERS: PCP Family Medicine; Referring Provider Nurse Practitioner; Visit Provider Internal Medicine Gastroenterology
PROC: 0DJ08ZZ Inspection of Upper Intestinal Tract, Via Natural or Artificial Opening Endoscopic (ICD-10-PCS; CPT 43235; principal; 2024-07-13 09:00)
DX: Z09 Encounter for follow-up examination after completed treatment for conditions other than malignant neoplasm (principal); K20.90 Esophagitis, unspecified without bleeding; K29.30 Chronic superficial gastritis without bleeding; K31.7 Polyp of stomach and duodenum; Z79.51 Long term (current) use of inhaled steroids; Z79.620 Long term (current) use of immunosuppressive biologic
CPT/HCPCS: 43239; 88305; J2003; J2704; J7120

== ENCOUNTER 2024-08-08 02:53 | Day surgery (SDC) | payer OTHER, SELFPAY ==
[2024-07-28 08:22] VITALS: BMI 27.9
--- NOTE | 2024-07-28 08:23 | PC.NURSE ---
Report to the Outpatient Waiting Room, entrance under the green pavilion located off [facility], at time _1100_ on date _[id number]_. Planned Procedure Time: _1pm_.? Time changes happen often and if your time is changed the preop area will call you the afternoon before. - You and your visitor will be asked to self-screen and do not enter if you have any COVID symptoms. Please call surgeon if you need to reschedule. - A mask is optional within the hospital at this time. Patients may have clear liquids (water, carbonated beverages, clear teas, apple juice) until 3 hours prior to surgery with a maximum of 20 ounces. - No food from midnight until time of surgery and no smoking. This includes no chewing gum, candy or mints. Take only the following medications with a SIP of water on the morning of surgery: ____Alprazolam if needed. DO NOT STOP ANY OF YOUR OTHER PRESCRIPTION MEDICATIONS PRIOR TO SURGERY EXCEPT THE FOLLOWING Medications to discontinue per physician Multivitamin and vitamin D Date to take last qtfp____[id number] Please no make-up, nail malay, hairspray, perfume, deodorant, or body powder the day of surgery.? No jewelry (including any body piercings) or valuables the day of surgery, leave them at home.? Please take a shower or bath the night before, or the morning of, surgery with an antibacterial soap.? Wear comfortable, loose fitting clothing.? - Jewelry must be removed prior to entering the operating room.? Rings and piercings that are not removed may be cut off. - The hospital will not accept responsibility for valuables.? - Please leave all valuables, including medications, at home the day of surgery. If you are going home after surgery, a licensed team cdl driver must drive you home.? - NO public transportation without another adult if you receive anesthesia. - We recommend that an adult stay with you for 24 hours following discharge. - We also recommend that you do not drive, make important decision, drink alcoholic beverages, or take any drugs that were not prescribed by your health care provider for at least 24 hours after your discharge time. Follow any additional instructions given to you from your surgeon. Telephone instructions given to __edd__and asked if any additional questions and then verbalized understanding. Patient advised to call surgeon office or pre surgery nurse liaison [phone] if any additional questions.
[2024-08-08] VITALS (8 sets, daily range): BP systolic 89–122; BP diastolic 47–89; PULSE 56–97; RESP 16–20; TEMP 36.3–36.8; O2SAT 99–100
--- NOTE | 2024-08-08 07:26 | WPDHPUPDATE1 ---
History and Physical Update Update Date/Time: 08/08/24 07:26 History and Physical has been reviewed, including an updated exam of the patient. There are NO changes in the patient's condition. Risks, benefits, and alternatives have been discussed and questions answered. Patient agrees to proceed with procedure.
--- NOTE | 2024-08-08 07:49 | WPDANESEPPF ---
Anes - Initial Pre Proc Eval Procedure: Operation Date: 08/08/24 13:00 Proposed Procedures p Right Knee Arthroscopic Partial Medial Meniscectomy - José Miguel Mansfield MD Date/Time: 08/08/24 07:49 Surgeon: José Miguel Mansfield MD Pre Op Diagnosis: Rt Knee Medial Meniscus Tear Patient Data Age: 48 Gender: F Height: 1.7 m Weight: 80.9 kg Allergies Allergy/AdvReac Type Severity Reaction Status Date / Time amoxicillin Allergy Mild Rash Verified 08/08/24 11:22 bupropion Allergy Unknown SEIZURE Verified 08/08/24 11:22 latex Allergy Unknown RASH, Verified 08/08/24 11:22 ITCHING Penicillins Allergy Unknown RASH Verified 08/08/24 11:22 propoxyphene AdvReac Mild NAUSEA/VOMI Verified 08/08/24 11:24 TING erythromycin base AdvReac Unknown N/V;DIZZINE Verified 08/08/24 11:24 SS Home Medications ?Medication ?Instructions ?Recorded ?Confirmed ?Type multivitamin 1 tablet PO DAILY 09/19/19 07/28/24 History alprazolam 0.5 mg tablet 0.5 mg PO BID PRN anxiety 04/01/22 07/28/24 History cholecalciferol (vitamin D3) 125 125 mcg PO DAILY 04/01/22 07/28/24 History mcg (5,000 unit) tablet (Vitamin D3) valacyclovir 500 mg tablet 500 mg PO DAILY PRN Cold Sores 11/26/23 07/28/24 History budesonide 2 mg/10 mL oral 1 packet PO QAM AND QPM #600 mL 06/08/24 07/28/24 Rx suspension in packet (Eohilia) fluticasone propionate 220 2 puff inhalation Q12H #12 grams 06/08/24 07/28/24 Rx mcg/actuation HFA aerosol inhaler omeprazole 40 mg capsule,delayed 40 mg PO BID #60 caps 06/08/24 07/28/24 Rx release dupilumab 300 mg/2 mL subcutaneous 300 mg (2 mL) subcut WEEKLY 30 06/19/24 07/28/24 Rx pen injector (Dupixent) days #10 mL hydrocodone 5 mg-acetaminophen 325 1 - 2 tablet PO Q4-6H PRN pain 7 08/08/24 Rx mg tablet days #30 tabs Patient hx anesthesia problems: post op nausea/vomiting Family hx anesthesia problems: none Results Review: All pre-operative results and documents have been reviewed as part of the pre-operative evaluation. [facility] Past Medical History Medical History (Updated 08/08/24 @ 07:50 by Antolin Dela Cruz DO) Endometriosis Depression BMI 32.0-32.9,adult Pelvic pain Sore throat Fatigue Fever Colon cancer screening Gastritis Dysphagia Eosinophilic esophagitis Medial meniscus tear Acute pain of left knee Neck pain on right side BMI 34.0-34.9,adult BMI 33.0-33.9,adult Weight gain Adult BMI 31.0-31.9 kg/sq m Surgical History Surgical History (Updated 07/12/24 @ 18:57 by Freida Knight CRNA) H/O: hysterectomy H/O knee surgery History of loop recorder History of removal of ovarian cyst Hx of tubal ligation History of gastric surgery Hx of dilation and curettage Family History Family History Father Family history of migraine headaches Hypertension Malignant neoplasm of prostate Sibling Hypertension Suicide Mother No problems noted. Other Diabetes mellitus Family history of cardiovascular disease Social History Social History Social History: Recently lost brother to suicide. Smoking status: Never smoker Second hand tobacco smoke exposure: Yes Alcohol intake: current Alcohol use details: 2 PER YEAR Substance use: never Substance use type: does not use Do You Feel Safe in your Home?: Yes Lack of Transportation: No Lack of Food: Never True Current Housing: I Have Housing Concerned About Future Housing: No Difficulty Paying Gas/Electric Bills: No Difficulty Paying for Meds: No Currently Unemployed: No Education: Trade/Vocational Certificate Difficulty w/ Childcare or Family Care: No Living arrangements: with family Occupation/Education: occupation Additional occupation/education comments: [employer] Gender identity (if verbalized by the patient): Female Sexual Orientation (if Verbalized by the Patient): Straight or Heterosexual Spiritual care concerns: No Anes - Eval Final PreProcedure Day of Procedure 08/08/24 07:49 Patient weight: overweight Heart: regular rate and rhythm Lungs: clear to auscultation Airway: Mallampati scale class II Neurological: alert and oriented Last oral intake: >/= 8 hours ASA classification: II Emergent: no Anesthetic plan: proceed Anesthesia type and monitoring: general LMA and standard monitoring Results Review: All pre-operative results and documents have been reviewed as part of the pre-operative evaluation. Informed Consent: The patient's anesthetic plan and its attendant risks and benefits were discussed with the patient/family/POA. Questions were solicited and answers provided to the satisfaction of the patient/family/POA.
[2024-08-08] MEDS: ACETAMINOPHEN 500 MG TABLET 1000 MG PO (11:12)
[2024-08-08] MEDS: LACTATED RINGERS 1,000 ML 30 ML IV CONT (11:15)
[2024-08-08] MEDS: KETOROLAC 15 MG/ML VIAL (*BKC) IV PUSH (11:15)
[2024-08-08] MEDS: SCOPOLAMINE 1 MG PATCH 1 PATCH TRANSDERM (11:54)
[2024-08-08] MEDS: ceFAZolin 2 GM/D5W 50 ML 2 GM/50 ML BAG IVPB (12:16)
[2024-08-08] MEDS: BUPIVACAINE/EPINEPHRINE 0.5% 50 ML VIAL 10 ML INFILTRATE (12:45)
--- NOTE | 2024-08-08 13:20 | P.OP_ITS ---
Procedure Note - Detailed Date of Procedure 08/08/24 Pre-op Diagnosis Rt Knee Medial Meniscus Tear Post-op Diagnosis Same Procedure Performed Arthroscopic partial medial meniscectomy, right knee. 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 Medial femur chondromalacia grade 0, medial tibia grade 0. Lateral femur chondromalacia grade 0, lateral tibia grade 0. Patellar grade 2, trochlea grade 2. Description of Procedure The patient was identified and the surgical site confirmed and signed in the preoperative holding area. Antibiotics were started per protocol, and the pa tient was brought to the operative room and transferred to the OR table. A general anesthetic was administered. Supine position with the operative lower extremity position in the leg hall after placement of a well padded tourniquet. The leg support was lowered and the contralateral limb was supported with a soft bolster. The knee was prepped and draped in the usual sterile fashion. A time-out was performed. The portal sites were marked and infiltrated with 0.5% Marcaine 20 mL. The limb was exsanguinated and the tourniquet inflated to 300 mL Hg. Standard inferolateral and inferomedial portals were established. Inflow was obtained with the saline pump. The camera was introduced. Diagnostic inspection of the joint was accomplished. The meniscus was debrided with the arthroscopic shaver and punches until stable. The ACL was intact. The arthroscopic instruments were removed. The tourniquet released and wounds closed with subcutaneous 4-0 Monocryl absorbable suture. Steri strips and a neyda rile dressing were applied. A light elastic wrap was placed. The patient was extubated and brought to the recovery room in stable condition. Estimated Blood Loss 5 Drains No Complications No immediate complications Condition Stable Disposition PACU [facility] Billing Surgery - Charge Forward: Surgery Billing
[2024-08-08] MEDS: oxyCODONE HCL (*CRX) 5 MG TAB IR PO (14:23)
== END 2024-08-08 15:00 | disposition home or self-care (01) ==
PROVIDERS: PCP Family Medicine; Visit Provider Orthopaedic Surgery
PROC: (CPT 29870; principal; 2024-08-08 13:00)
DX: S83.241A Other tear of medial meniscus, current injury, right knee, initial encounter (principal); M94.261 Chondromalacia, right knee; N80.9 Endometriosis, unspecified; F32.A Depression, unspecified; X58.XXXA Exposure to other specified factors, initial encounter; Z79.51 Long term (current) use of inhaled steroids; Z79.85 Long-term (current) use of injectable non-insulin antidiabetic drugs; Z79.891 Long term (current) use of opiate analgesic; Z98.890 Other specified postprocedural states; Z98.84 Bariatric surgery status; Z98.51 Tubal ligation status; Z87.19 Personal history of other diseases of the digestive system; Z80.42 Family history of malignant neoplasm of prostate; Z82.49 Family history of ischemic heart disease and other diseases of the circulatory system
CPT/HCPCS: 29881; A9270; J0690; J1100; J1885; J2003; J2250; J2405; J2704; J3010; J7120

== ENCOUNTER 2024-08-23 12:36 | Outpatient (CLI) | payer OTHER, SELFPAY ==
--- NOTE | ~2024-08-23 | US_ITS ---
EXAMINATION:US venous doppler LE RT INDICATION:Localized edema TECHNIQUE: Multiple grayscale, color flow and Doppler images of the right lower extremity deep venous systems were obtained and reviewed. COMPARISON:No prior studies for comparison. FINDINGS: The common femoral, superficial femoral and popliteal veins demonstrate normal respiratory variation, augmentation and compressibility. Color flow is also seen within the posterior tibial, pe roneal, greater saphenous and profunda veins. IMPRESSION: 1: No lower extremity deep venous thrombosis. Reviewed, dictated and finalized at location A. CUT EXAMINER
== END 2024-08-23 12:37 | disposition home or self-care (01) ==
PROVIDERS: PCP Family Medicine; Visit Provider Physician Assistant Surgical
DX: R60.0 Localized edema (principal)
CPT/HCPCS: 93971

== ENCOUNTER 2024-09-11 10:30 | Outpatient (RCR) | payer OTHER, SELFPAY ==
--- NOTE | 2024-08-15 14:55 | OPREHPOC ---
Outpatient Therapy Plan of Care This is a Multidisciplinary Plan of Care that may contain components documented by all disciplines (PT, OT, and ST.) PT Problem 1 PT Problem #1 Knowledge Deficit PT Goal 1 Goal / Goal Update 1. Patient will perform independent HEP Target Visit 4 PT Problem 2 PT Problem #2 Pain PT Goal 1 Goal / Goal Update 1. Knee pain no higher than 3/10 with all activities Target Visit 10 PT Problem 3 PT Problem #3 Impaired Range of Motion PT Goal 1 Goal / Goal Update 1. Knee extension to 0 to normalize gait pattern 2. Knee flexion to 120 for stairs Target Visit 10 PT Problem 4 PT Problem #4 Impaired Strength PT Goal 1 Goal / Goal Update 1. Right MMT 5/5 in all planes in order to do cooking and cleaning tasks at home Target Visit 10 PT Problem 5 PT Problem #5 Impaired Endurance PT Goal 1 Goal / Goal Update 1. Patient will ambulate at least 300 feet on 2 minute walk test without major gait deviations Target Visit 10
--- NOTE | 2024-08-15 14:55 | PTOPEVAL1 ---
Assessment and note entered by Carol Hinkle DPT Evaluation Information Assessment Status Evaluation ICD-10 Condition Codes (PT) Pain in right knee M25.561,Difficulty Walking R26. 2,Weakness R53.1,Encounter for other orthopedic aftercare Z47.89 Subjective Information Pt is s/p R knee meniscectomy on 08/08/24. States she had a fall back in October of 2023. Highest pain since surgery 9-10/10 and lowest 6/10. Difficulty walking, navigating stairs, bending, getting in and out of bed. Feels she has to change positions often. 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 Unsure return to work date. Pt is not driving yet. Pt requires some assistance with dressing and bathing, has not tried cooking or cleaning yet. Prior to surgery was independent. Patient goal: get my knee normal range of motion, get back to working out. Reported Pain Level Pain Score 7: Self Report Assessment PT Clinical Summary The patient is presenting to skilled therapy s/p R knee scope on 09/08/23. She presents with decreased knee range of motion (+8-107 actively), decreased strength, gait impairments, and difficulty with stair navigation. These impairments are contributing to her pain and difficulty with dressing, cooking, cleaning, and returning to work. She will benefit from therapy to address impairments in order to reduce pain and return to full function. Plan of Care Interventions Electrical Stimulation,Gait Training,Hot Pack/Cold Pack,Manual Therapy,Neuro Re-education,Patient/ Caregiver Education,Therapeutic Activities, Therapeutic Exercise PT Services Indicated Yes Treatment Frequency and 2 times a week for 10 visits Duration These treatments will address the objective and functional deficits as defined above. The patient will be advanced safely and appropriately in order for the patient to progress towards his/her prior level of function. Additional exercises will be introduced and as well as a comprehensive home exercise program upon discharge, if needed, ?to ensure carryover of functional gains achieved in the clinic. This treatment plan has been reviewed and agreement upon by the patient.
--- NOTE | 2024-09-18 11:22 | PCPTNOTE ---
Patient called and cancelled secondary to being tied up at another appointment.
--- NOTE | 2024-11-01 15:25 | PTOPDC ---
Assessment and note entered by Carol Hiknle DPT Evaluation Information Assessment Status Discharge - Pt Not Present ICD-10 Condition Codes (PT) Pain in right knee M25.561,Difficulty Walking R26. 2,Weakness R53.1,Encounter for other orthopedic aftercare Z47.89 Subjective Information - Assessment PT Clinical Summary Patient last attended therapy 09/11/24. Her case will be discharged this date. Plan of Care PT Services Indicated No
== END 2024-11-01 17:01 | disposition home or self-care (01) ==
LOC: ANHPT 10:30
PROVIDERS: PCP Family Medicine; Visit Provider Orthopaedic Surgery
DX: Z48.89 Encounter for other specified surgical aftercare (principal)
CPT/HCPCS: 97014; 97016; 97110; 97140; 97161; G0283

== ENCOUNTER 2024-11-19 13:38 | Emergency (ER) | payer OTHER, SELFPAY ==
--- OUTSIDE RECORDS SUMMARY | 2024-11-19 13:40 | XMS_ITS | Encounter Summary ---
Author Organization [facility] Address [address] [place] [address] Phone Care Team Providers Care Picture Booker Name Role Phone Shar Rodriguez MD Primary Care Provider [phone] Tong Becker MD Primary Care Provider [phone] Encounter Details Date Type Department Care Team (Late st Contact Info) Description 05/09/2014 Orders Only [facility] Provider, MD Keon [address] [place] [address] Social History Tobacco Use Types Packs/Day Years Used Date Smoking Tobacco: Never Assessed Comments Unknown Sex and Gender Information Value Date Recorded Sex Assigned at Not on file 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 Historical Provider [facility] K[facility] RODRIGUEZ Final Result documented in this encounter Visit Diagnoses Not on filedocumented in this encounter Care Teams Picture Booker Relationship Specialty Start Date End Date Shar Rodriguez MD [address] [place] [address] PCP - General 12/21/16 11/05/20 Tong Becker MD [address] [facility] [address] [facility] [address] [place] [address] PCP - General Family Medicine 11/06/20 documented as of this encounter
--- OUTSIDE RECORDS SUMMARY | 2024-11-19 13:40 | XMS_ITS | Encounter Summary ---
Author Organization [facility] Address [address] [place] [address] Phone Care Team Providers Care Correspondence Clerk Name Role Phone Shar Rodriguez MD Primary Care Provider [phone] Tong Becker MD Primary Care Provider [phone] Encounter Details Date Type Department Care Team (Late st Contact Info) Description 09/29/2014 Orders Only [facility] Provider, MD Keon [address] [place] [address] Social History Tobacco Use Types Packs/Day Years Used Date Smoking Tobacco: Never Assessed Comments Unknown Sex and Gender Information Value Date Recorded Sex Assigned at Not on file 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 Historical Provider [facility] KEV RODRIGUEZ Final Result documented in this encounter Visit Diagnoses Not on filedocumented in this encounter Care Teams Correspondence Clerk Relationship Specialty Start Date End Date Shar Rodriguez MD [address] [place] [address] PCP - General 12/21/16 11/05/20 Tong Becker MD [address] [facility] [address] [facility] [address] [place] [address] PCP - General Family Medicine 11/06/20 documented as of this encounter
--- OUTSIDE RECORDS SUMMARY | 2024-11-19 13:40 | XMS_ITS | Encounter Summary ---
Author Organization [facility] Address [address] [place] [address] Phone Care Team Providers Care Fiber Optic Assembly Worker Name Role Phone Shar Rodriguez MD Primary Care Provider [phone] Tong Becker MD Primary Care Provider [phone] Encounter Details Date Type Department Care Team (Late st Contact Info) Description 01/31/2015 Orders Only [facility] ProviderKeon MD [address] [place] [address] Social History Tobacco Use Types Packs/Day Years Used Date Smoking Tobacco: Never Assessed Comments Unknown Sex and Gender Information Value Date Recorded Sex Assigned at Not on file 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 Historical Provider [facility] KEV RODRIGUEZ Final Result * CARDIOLOGY REPORT (01/31/2015) Anatomical Region Laterality Modality Other Narrative 01/31/2015 Ordered by an unspecified provider. Historical Provider [facility] KEV RODRIGUEZ Final Result documented in this encounter Visit Diagnoses Not on filedocumented in this encounter Care Teams Fiber Optic Assembly Worker Relationship Specialty Start Date End Date Shar Rodriguez MD [address] [place] [address] PCP - General 12/21/16 11/05/20 Tong Becker MD [address] [place] [address] PCP - General Family Medicine 11/06/20 documented as of this encounter
--- OUTSIDE RECORDS SUMMARY | 2024-11-19 13:40 | XMS_ITS | Encounter Summary ---
Author Organization [facility] Address [address] [place] [address] Phone Care Team Providers Care Dumping Machine Operator Name Role Phone Shar Rodriguez MD Primary Care Provider [phone] Tong Becker MD Primary Care Provider [phone] Encounter Details Date Type Department Care Team (Late st Contact Info) Description 05/28/2014 Orders Only [facility] Provider, MD Keon [address] [place] [address] Social History Tobacco Use Types Packs/Day Years Used Date Smoking Tobacco: Never Assessed Comments Unknown Sex and Gender Information Value Date Recorded Sex Assigned at Not on file 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 Historical Provider [facility] KEV RODRIGUEZ Final Result documented in this encounter Visit Diagnoses Not on filedocumented in this encounter Care Teams Dumping Machine Operator Relationship Specialty Start Date End Date Shar Rodriguez MD [address] [place] [address] PCP - General 12/21/16 11/05/20 Tong Becker MD [address] [facility] [address] [place] [address] PCP - General Family Medicine 11/06/20 documented as of this encounter
--- OUTSIDE RECORDS SUMMARY | 2024-11-19 13:40 | XMS_ITS | Clinical Summary ---
Author Organization [facility] Address [address] [place] [address] Care Team Providers Care Sheeter Waxer Operator Name Role Phone Tong Becker MD Primary Care Provider [phone] Allergies Active Allergy Reactions Criticality Noted Date Comments Amoxicillin Rash Medium Bupropion Seizures High Erythromycin Nausea & Vomiting Low Latex Hives Medium Propoxyphene-Acetaminophe n Nausea & Vomiting Low Vancomycin Itching Low 08/28/2024 Rash and itching Medications ALPRAZolam (XANAX) 0.5 mg tablet 1TAB 2 TIMES DAILY NEEDED 4 Active cholecalciferol (VITAMIN D-3) 5,000 unit tablet Take 1 tablet (5,000 Units total) by mouth daily 1 Active sertraline (ZOLOFT) 50 mg tablet Take 50 mg by mouth nightly 1 Active spironolactone (ALDACTONE) 100 mg tablet Take 100 mg by mouth daily 1 Active multivitamin capsule Take 1 capsule by mouth daily Active omeprazole (PriLOSEC) 40 mg capsule Take 1 capsule (40 mg total) by mouth daily 1 Active traZODone (DESYREL) 50 mg tablet TAKE 2 TABLETS BY MOUTH EVERY NIGHT AT BEDTIME NEEDED FOR INSOMNIA 1 Active valACYclovir (VALTREX) 500 mg tablet Take 1 tablet (500 mg total) by mouth as needed 1 Active sumatriptan succinate (IMITREX ORAL) Take by mouth A ctive Eohilia 2 mg/10 mL suspension in packet TAKE 1 PACKET BY MOUTH EVERY MORNING AND EVERY EVENING. 4 Active Dupixent Pen pen injector Inject 2 mL (300 mg total) under the skin every 14 (fourteen) days 4 Active scopolamine 1 mg over 3 days patch [address] 1 patch on the skin every third day 4 Active famotidine (PEPCID) 20 mg tabletIndicatio ns:allergic reaction Take 1 tablet (20 mg total) by mouth 2 (two) times a day Take 1 tablet (20 mg total) by mouth 2 (two) times a day for itching 60 tablet 1 5 08/28/19 26 Active Additional Information Patient not taking.Reported on 09/11/2024 diphenhydrAMINE (BENADRYL) 25 mg capsule Take 1 tablet/capsule (25 mg total) by mouth every 6 (six) hours as needed for itching or allergies 30 capsule 1 5 Active Additional Information Patient not taking.Reported on 09/11/2024 HYDROcodone-casey taminophen (NORCO) 5-325 mg per tablet as needed 5 Active phentermine 30 mg capsule Take 1 capsule (30 mg total) by mouth daily 5 Active Active Problems Problem Noted Date Diagnosed Date Palpitations 04/25/2021 Encounter for loop recorder at end of battery li fe 04/25/2021 Localized swelling of right lower leg 04/02/2021 Lipoma of right lower extremity 11/06/2020 Overview (11/06/2020): Added automatically from request for surgery [id number] Assessment & Plan (03/05/2021 2:22 PM CDT): Encouraged to trial compression socks and elevate lower extremity when resting. If swelling continues may have follow up with surgeon, previous imaging negative to dvt. Patient does not weight gain, close relation to new medication. Swelling only to right lower extremity. She is leaving out of town for vacation and in encouraged to call office for no improvement or worsening of swelling. 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 Resolved Problems Problem Noted Date Diagnosed Date Resolved Date History of cardiovascular surgery 03/22/2017 04/25/2021 Encounters Date Type Department Care Team Description 09/11/2024 1:15 PM ADVANCE AGENT Ancillary Procedure [facility] Cardiology [address] [place] [address] 8th [place] [address] [place] [address] Syncope and collapse; Presence of electronic cardiac device; Vasovagal syncope; Palpitations 09/11/2024 Telephone [facility] Cardiology [address] [place] [address] 8th [place] [address] [place] [address] Jazmin Vickers MD 08/28/2024 9:00 AM [facility] - 08/28/2024 10:20 AM [facility] Surgery [facility] Electrophysiology Lab [address] [place] [address] Jazmin Vickers MD IMPLANTABLE CARDIAC EVENT MONITOR REMOVAL [id number] 08/28/2024 7:06 AM ADVANCE AGENT - 08/28/2024 1:00 PM [facility] Hospital Encounter [facility] Electrophysiology Lab [address] [place] [address] Jazmin Vickers MD Encounter for loop recorder at end of battery life [Z45.09] (Primary Dx); Syncope and collapse Discharge Disposition: Discharge to home or self care 08/23/2024 Telephone [facility] Cardiology [address] [place] [address] 8th [place] [address] [place] [address] Jazmin Vickers MD from Last 3 Months Surgical History Surgery Date Site/Laterality Comments HYSTERECTOMY DILATION AND CURETTAGE OF UTERUS x2 ABDOMINAL SURGERY removal of bezoar at age 5 WISDOM TOOTH EXTRACTION ESOPHAGOGASTRODUODENOSCOPY COLONOSCOPY LIPOMA RESECTION Medical History Medical History Date Comments Syncope and collapse Syncope and collapse - (Added by TW Conv) GERD (gastroesophageal reflux disease) Seizures (HCC) Dysphagia Family History Medical History Relation Name Comments Cancer Father prostate cancer Hypertension Father No Known Problems Mother Hypertension Other Family history of hypertension - (Added by TW Conv) Relation Name Status Comments Father Mother Other Social History Tobacco Use Types Packs/Day Years Used Date Smoking Tobacco: Never Passive Smoke Exposure: Current Smokeless Tobacco: Never Tobacco Cessation:Counseling Given: Not Answered AUDIT-C Answer Date Recorded Q1: How often do you have a drink containing alc ohol? Monthly or less 08/28/2024 Q2: How many drinks containi ng alcohol do you have on a typical day when you are drinking? 1 or 2 08/28/2024 Q3: How often do you have si x or more drinks on one occasion? Never 08/28/2024 Personal Safety Answer Date Recorded Have you ever been in or are you currently in a harmful physical or emotional relationship or is someone making you feel afraid or unsafe? Denies 08/28/2024 Comments No Sex and Gender Information Value Date Recorded Sex Assigned at Not on file Legal Sex Female 5:10 AM ADVANCE AGENT Gender Identity Not on file Sexual Orientation Not on file Obstetrics History Last Filed Vital Signs Vital Sign Reading Time Taken Comments Blood Pressure 132/87 09/11/2024 1:17 PM ADVANCE AGENT Pulse 86 09/11/2024 1:17 PM ADVANCE AGENT Temperature 36.7 C (98 F) 08/28/2024 7:25 AM ADVANCE AGENT Respiratory Rate 17 08/28/2024 12:25 PM ADVANCE AGENT Oxygen Saturation 97% 09/11/2024 1:17 PM ADVANCE AGENT Inhaled Oxygen Concentration - - Weight 91.3 kg (201 lb 3.2 oz) 09/11/2024 1:17 P M ADVANCE AGENT Height 170.2 cm (5' 7 ) 09/11/2024 1:17 PM ADVANCE AGENT Body Mass Index 31.51 09/11/2024 1:17 PM ADVANCE AGENT Plan of Treatment Health Maintenance Due Date Last Done Comments Breast Cancer Screening-Mammogram 1975 Colon Cancer Screening-Colonoscopy 1975 Depression Screening 1975 Hepatitis C Screening 1975 DTaP/Tdap/Td Vaccine (1 - Tdap) 1987 Hepatitis B Screening 1994 Regular Well Visit/Exam 18-64 1994 Influenza Vaccine (#1) 2024 8, 05/09/2014, 05/18/2013 Pneumococcal vaccine <65 Aged Out No longer eligible based on patient's age to complete this topic Procedures Procedure Name Priority Date/Time Associated Diagnosis Comments LOOP RECORDER REMOVAL Routine 08/28/2024 11:24 AM ADVANCE AGENT Syncope and collapse EGFR Routine 08/28/2024 7:22 AM ADVANCE AGENT Syncope and collapse CBC WITHOUT DIFFERENTIAL Routine 08/28/2024 7:22 AM ADVANCE AGENT Syncope and collapse BASIC METABOLIC PANEL Routine 08/28/2024 7:22 AM ADVANCE AGENT Syncope and collapse from Last 3 Months Results * LOOP RECORDER REMOVAL (08/28/2024 11:24 AM ADVANCE AGENT) Anatomical Region Laterality Modality X-Ray Angiograph y Narrative 08/28/2024 11:39 AM ADVANCE AGENT ELECTROPHYSIOLOGY PROCEDURE: REMOVAL OF IMPLANTABLE LOOP RECORDER Patient Name: Nat Riley Patient date of : 1975 Date of Procedure:08/28/2024 OPERATORS: 1. Jazmin Vickers MD [facility] 2.Elyse Dasilva MD EP [employer] PROCEDURES: 1. Removal of Medtronic LNQ11 SN [id number] TOTAL CONTRAST: 0 TOTAL FLUROSCOPY TIME:0.0 MEDICATIONS Bupivicaine 0.25% with epi 5 cc Vancomycin 1 gm IV Fentanyl 50 mcg IV INDICATION FOR PROCEDURE: ILR at EOS PATIENT HISTORY: Here for ILR removal- implanted for syncope. No arrhythmias Site is tender, it is uncomfortable, and she and her want it removed. She does not want it replaced. Recent r knee surgery She developed a itchy red rash to IV Vancomycin which was treated with Pepcid 20 mg IV and Benadryl 25 mg IV with significant improvement. PROCEDURE DESCRIPTION: Informed consent was obtained in writing prior to procedure after full detailed explanation of risks, benefits and alternatives and all of the patient's questions were answered. The patient was brought to the cardiac EP lab in a fasting state and prepped and draped in the usual sterile fashion. The patient was kept on continuous ECG, blood pressure and oxygen saturation monitoring throughout the entire procedure. A procedural time-out was performed per protocol to confirm patient identity and procedure to be performed. Local anesthesia was obtained with 1% lidocaine with epinephrine in the left parasternal region. A #15 surgical blade was used to make a small incision in the L lateral area over the device. Sharp and blunt dissection was done to reach the capsule and remove the device. The ILR is Medtronic LNQ11 SN [id number] The tract was irrigated with Vancocmycin. The incision was sutured closed in 3-0 Vicryl. Steri strips were paced over the incision and a sterile dressing was placed. The patient tolerated the procedure well without any complications. Sponge needle and instrument counts were correct x2 CONCLUSION: Successful removal of a Medtronic LNQ11 SN [id number] RECOMMENDATIONS: Remove dressing in three days Leave steristrips ON Pepcid 20 mg and Benadryl 25 mg prn itching at DC DC 1300 Attestation I was present for the entire procedure and prepared this report. Jazmin Vickers MD [facility] Jazmin Vickers MD CV ELECTROPHYSIOLOGY PROCS Fin al Result * eGFR (08/28/2024 7:22 AM ADVANCE AGENT) eGFR >90 >=60 mL/min/1. 73 m2 Comment: Interpretive Data Reference Interval Normal >/= 90 mL/min/1.73m2 Mildly decreased* 60 - 89 mL/min/1.73m2 Mildly to moderately decreased 45 - 59 mL/min/1.73m2 Moderately to severely decreased 30 - 44 mL/min/1.73m2 Severely decreased 15 - 29 mL/min/1.73m2 Kidney Failure < 15 mL/min/1.73m2 *Relative to young adult level Estimated glomerular filtration rate is determined by the 2020 CKD-EPI equation recommended by the National Kidney Foundation (A Unifying Approach to GFR Estimation: Recommendations of the NKF-ASK Task Force on Reassessing the Inclusion of Race in Diagnosing Kidney Disease, JASN 2021). The CKD-EPI equation should not be used for patients with unstable renal function and has not been validated in children and those over 70. Current interpretive data was last reviewed 2021. Blood 08/28/2024 7:22 AM ADVANCE AGENT 08/28/2024 7:57 AM ADVANCE AGENT us Jazmin Vickers MD LAB BLOOD ORDERABLES Final Res ult [facility] Department [place] [address] * (ABNORMAL) CBC without differential (08/28/2024 7:22 AM ADVANCE AGENT) [facility] WBC 12.1(H) 3.8 - 9.9 K/cumm Hgb 14.1 11.9 - 15.5 g/dL [facility] Hct 42.3 35.6 - 45.5 % [facility] Plt 277 150 - 400 K/cumm [facility] MPV 10.1 9.1 - 12.3 fL [facility] RBC 4.88 3.90 - 5.20 M/cumm [facility] MCV 86.7 81.3 - 96.4 fL [facility] MCH 28.9 27.1 - 33.3 pg [facility] MCHC 33.3 32.3 - 35.7 g/dL [facility] RDW CV 13.1 11.1 - 14.9 % [facility] RDW SD 41.1 35.7 - 48.1 fL [facility] NRBC abs 0.00 0.00 - 0.01 K/cumm [facility] Blood 08/28/2024 7:22 AM ADVANCE AGENT 08/28/2024 7:45 AM ADVANCE AGENT Narrative [facility] - 08/28/2024 8:05 AM ADVANCE AGENT If most recent labs were drawn prior to 4 AM, draw only prior to initiating procedure. us Jazmin Vickers MD LAB BLOOD ORDERABLES Final Res ult [facility] Department [place] [address] * Basic metabolic panel (08/28/2024 7:22 AM ADVANCE AGENT) [facility] Sodium 142 135 - 145 mmol/L Potassium, pl 4.0 3.3 - 4.9 mmol/L [facility] Chloride 104 97 - 110 mmol/L [facility] CO2 27 22 - 32 mmol/L [facility] Anion gap 11 2 - 15 mmol/L [facility] BUN 7 6 - 25 mg/dL [facility] Creatinine 0.75 0.60 - 1.10 mg/dL [facility] Glucose 94 70 - 199 mg/dL [facility] Comment: Interpretive Data Fasting glucose >/= 126 mg/dl is diagnostic for diabetes. Fasting is defined as no caloric intake for at least 8 hours. Fasting glucose between 100 mg/dl to 125 mg/dl is diagnostic of prediabetes. In a patient with classic symptoms of hyperglycemia or hyperglycemic crisis, a random glucose >/= 200 mg/dl is diagnostic for diabetes. In the absence of unequivocal hyperglycemia, results should be confirmed by repeat testing. The classification and Diagnosis of Diabetes Diabetes Care 2021; 46: S19-S40. Current interpretive data was last revised 2022. Calcium 9.1 8.5 - 10.3 mg/dL [facility] Blood 08/28/2024 7:22 AM ADVANCE AGENT 08/28/2024 7:44 AM ADVANCE AGENT us Jazmin Vickers MD LAB BLOOD ORDERABLES Final Res ult [facility] Department [place] [address] from Last 3 Months Insurance [facility] [employer] ACC[employer] OOS [employer]OS Care Teams Sheeter Waxer Operator Relationship Specialty Start Date End Date Tong Becker MD PCP - General Family Medicine 11/06/20
--- OUTSIDE RECORDS SUMMARY | 2024-11-19 13:40 | XMS_ITS | Encounter Summary ---
Author Organization [facility] Address [address] [place] [address] Phone Care Team Providers Care Airborne Operations Superintendent Name Role Phone Shar Rodriguez MD Primary Care Provider [phone] Tong Becker MD Primary Care Provider [phone] Encounter Details Date Type Department Care Team (Late st Contact Info) Description 04/01/2015 Orders Only [facility] ProviderKeon MD [address] [place] [address] Social History Tobacco Use Types Packs/Day Years Used Date Smoking Tobacco: Never Assessed Comments Unknown Sex and Gender Information Value Date Recorded Sex Assigned at Not on file 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 Historical Provider [facility] KEV RODRIGUEZ Final Result * CARDIOLOGY REPORT (04/01/2015) Anatomical Region Laterality Modality Other Narrative 04/01/2015 Ordered by an unspecified provider. Historical Provider [facility] CARDIAC SERVICES KEV RODRIGUEZ Final Result documented in this encounter Visit Diagnoses Not on filedocumented in this encounter Care Teams Airborne Operations Superintendent Relationship Specialty Start Date End Date Shar Rodriguez MD [address] [place] [address] PCP - General 12/21/16 11/05/20 Tong Becker MD [address] [place] [address] PCP - General Family Medicine 11/06/20 documented as of this encounter
--- OUTSIDE RECORDS SUMMARY | 2024-11-19 13:40 | XMS_ITS | Encounter Summary ---
Author Organization [facility] Address [address] [place] [address] Phone Care Team Providers Care Plan Examiner Name Role Phone Shar Rodriguez MD Primary Care Provider [phone] Tong Becker MD Primary Care Provider [phone] Encounter Details Date Type Department Care Team (Late st Contact Info) Description 06/28/2014 Orders Only [facility] Provider, MD Keon [address] [place] [address] Social History Tobacco Use Types Packs/Day Years Used Date Smoking Tobacco: Never Assessed Comments Unknown Sex and Gender Information Value Date Recorded Sex Assigned at Not on file 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 Historical Provider CV CARDIAC SERVICES KEV RODRIGUEZ Final Result documented in this encounter Visit Diagnoses Not on filedocumented in this encounter Care Teams Plan Examiner Relationship Specialty Start Date End Date Shar Rodriguez MD [address] [place] [address] PCP - General 12/21/16 11/05/20 Tong Becker MD [address] [facility] [address] [facility] [address] [place] [address] PCP - General Family Medicine 11/06/20 documented as of this encounter
--- OUTSIDE RECORDS SUMMARY | 2024-11-19 13:40 | XMS_ITS | Encounter Summary ---
Author Organization [facility] Address [address] [place] [address] Phone Care Team Providers Care Manager Supply Name Role Phone Shar Rodriguez MD Primary Care Provider [phone] Tong Becker MD Primary Care Provider [phone] Encounter Details Date Type Department Care Team (Late st Contact Info) Description 08/29/2014 Orders Only [facility] Provider, MD Keon [address] [place] [address] Social History Tobacco Use Types Packs/Day Years Used Date Smoking Tobacco: Never Assessed Comments Unknown Sex and Gender Information Value Date Recorded Sex Assigned at Not on file 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 Historical Provider CV CARDIAC SERVICES KEV RODRIGUEZ Final Result documented in this encounter Visit Diagnoses Not on filedocumented in this encounter Care Teams Manager Supply Relationship Specialty Start Date End Date Shar Rodriguez MD [address] [place] [address] PCP - General 12/21/16 11/05/20 Tong Becker MD [address] [facility] [address] [facility] [address] [place] [address] PCP - General Family Medicine 11/06/20 documented as of this encounter
--- OUTSIDE RECORDS SUMMARY | 2024-11-19 13:40 | XMS_ITS | Encounter Summary ---
Author Organization [facility] Address [address] [place] [address] Phone Care Team Providers Care County Tax Assessor Name Role Phone Shar Rodriguez MD Primary Care Provider [phone] Tong Becker MD Primary Care Provider [phone] Encounter Details Date Type Department Care Team (Late st Contact Info) Description 10/01/2014 Orders Only [facility] Provider, MD Keon [address] [place] [address] Social History Tobacco Use Types Packs/Day Years Used Date Smoking Tobacco: Never Assessed Comments Unknown Sex and Gender Information Value Date Recorded Sex Assigned at Not on file 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 Historical Provider CV CARDIAC SERVICES KEV RODRIGUEZ Final Result documented in this encounter Visit Diagnoses Not on filedocumented in this encounter Care Teams County Tax Assessor Relationship Specialty Start Date End Date Shar Rodriguez MD [address] [place] [address] PCP - General 12/21/16 11/05/20 Tong Becker MD [address] [facility] [address] [facility] [address] [place] [address] PCP - General Family Medicine 11/06/20 documented as of this encounter
--- OUTSIDE RECORDS SUMMARY | 2024-11-19 13:40 | XMS_ITS | Encounter Summary ---
Author Organization [facility] Address [address] [place] [address] Phone Care Team Providers Care Non Licensed Nuclear Equipment Operator Name Role Phone Shar Rodriguez MD Primary Care Provider [phone] Tong Becker MD Primary Care Provider [phone] Encounter Details Date Type Department Care Team (Late st Contact Info) Description 10/30/2014 Orders Only [facility] Provider, MD Keon [address] [place] [address] Social History Tobacco Use Types Packs/Day Years Used Date Smoking Tobacco: Never Assessed Comments Unknown Sex and Gender Information Value Date Recorded Sex Assigned at Not on file Legal Sex Female 5:10 AM RUG 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 Historical Provider CV CARDIAC SERVICES KEV RODRIGUEZ Final Result documented in this encounter Visit Diagnoses Not on filedocumented in this encounter Care Teams Non Licensed Nuclear Equipment Operator Relationship Specialty Start Date End Date Shar Rodriguez MD [address] [place] [address] PCP - General 12/21/16 11/05/20 Tong Becker MD [address] [facility] [address] [facility] [address] [place] [address] PCP - General Family Medicine 11/06/20 documented as of this encounter
--- OUTSIDE RECORDS SUMMARY | 2024-11-19 13:40 | XMS_ITS | Encounter Summary ---
Author Organization [facility] Address [address] [place] [address] Phone Care Team Providers Care Commercial Construction Estimator Name Role Phone Shar Rodriguez MD Primary Care Provider [phone] Tong Becker MD Primary Care Provider [phone] Encounter Details Date Type Department Care Team (Late st Contact Info) Description 03/02/2015 Orders Only [facility] ProviderKeon MD [address] [place] [address] Social History Tobacco Use Types Packs/Day Years Used Date Smoking Tobacco: Never Assessed Comments Unknown Sex and Gender Information Value Date Recorded Sex Assigned at Not on file 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 Historical Provider [facility] KEV RODRIGUEZ Final Result * CARDIOLOGY REPORT (03/02/2015) Anatomical Region Laterality Modality Other Narrative 03/02/2015 Ordered by an unspecified provider. Historical Provider CV CARDIAC SERVICES KEV RODRIGUEZ Final Result documented in this encounter Visit Diagnoses Not on filedocumented in this encounter Care Teams Commercial Construction Estimator Relationship Specialty Start Date End Date Shar Rodriguez MD [address] [place] [address] PCP - General 12/21/16 11/05/20 Tong Becker MD [address] [place] [address] PCP - General Family Medicine 11/06/20 documented as of this encounter
--- OUTSIDE RECORDS SUMMARY | 2024-11-19 13:40 | XMS_ITS | Encounter Summary ---
Author Organization [facility] Address [address] [place] [address] Phone Care Team Providers Care Vendor Management Consultant Name Role Phone Shar Rodriguez MD Primary Care Provider [phone] Tong Bceker MD Primary Care Provider [phone] Encounter Details Date Type Department Care Team (Late st Contact Info) Description 08/11/2016 Orders Only [facility] ProviderKeon MD [address] [place] [address] Social History Tobacco Use Types Packs/Day Years Used Date Smoking Tobacco: Never Assessed Comments Unknown Sex and Gender Information Value Date Recorded Sex Assigned at Not on file 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 Historical Provider CV CARDIAC SERVICES KEV RODRIGUEZ Final Result * CARDIOLOGY REPORT (08/11/2016) Anatomical Region Laterality Modality Other Narrative 08/11/2016 Ordered by an unspecified provider. Historical Provider CV CARDIAC SERVICES KEV RODRIGUEZ Final Result documented in this encounter Visit Diagnoses Not on filedocumented in this encounter Care Teams Vendor Management Consultant Relationship Specialty Start Date End Date Shar Rodriguez MD [address] [place] [address] PCP - General 12/21/16 11/05/20 Tong Becker MD [address] [place] [address] PCP - General Family Medicine 11/06/20 documented as of this encounter
--- OUTSIDE RECORDS SUMMARY | 2024-11-19 13:40 | XMS_ITS | Encounter Summary ---
Author Organization [facility] Address [address] [place] [address] Phone Care Team Providers Care Litigation Assistant Name Role Phone Shar oRdriguez MD Primary Care Provider [phone] Tong Becker MD Primary Care Provider [phone] Encounter Details Date Type Department Care Team (Late st Contact Info) Description 08/14/2015 Orders Only [facility] ProviderKeon MD [address] [place] [address] Social History Tobacco Use Types Packs/Day Years Used Date Smoking Tobacco: Never Assessed Comments Unknown Sex and Gender Information Value Date Recorded Sex Assigned at Not on file Legal Sex Female 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 Historical Provider CV CARDIAC SERVICES KEV RODRIGUEZ Final Result * CARDIOLOGY REPORT (08/14/2015) Anatomical Region Laterality Modality Other Narrative 08/14/2015 Ordered by an unspecified provider. Historical Provider CV CARDIAC SERVICES KEV RODRIGUEZ Final Result documented in this encounter Visit Diagnoses Not on filedocumented in this encounter Care Teams Litigation Assistant Relationship Specialty Start Date End Date Shar Rodriguez MD [address] [place] [address] PCP - General 12/21/16 11/05/20 Tong Becker MD [address] [place] [address] PCP - General Family Medicine 11/06/20 documented as of this encounter
--- OUTSIDE RECORDS SUMMARY | 2024-11-19 13:40 | XMS_ITS | Referral Summary ---
Author Organization [facility] Address [address] [place] [address] Care Team Providers Care Metal Spray Operator Name Role Phone Tong Becker MD Primary Care Provider Encounters Date Type Department Care Team Description 09/11/[address] 8th [place] [address] [place] [address] Jazmin Vickers MD 09/11/2024 1:15 PM [facility]LECTIONS REP Ancillary Procedure [facility] [address] [place] [address] 8th [place] [address] [place] [id number] Syncope and collapse; Presence of electronic cardiac device; Vasovagal syncope; Palpitations 08/28/2024 9:00 AM [facility] - 08/28/2024 10:20 AM [facility] Surgery [facility] Electrophysiology Lab [address] [place] [address] Jazmin Vickers MD IMPLANTABLE CARDIAC EVENT MONITOR REMOVAL [id number] 08/28/2024 7:06 AM [facility] - 08/28/2024 1:00 PM [facility] Hospital Encounter [facility] Elect[facility]iology [facility] [address] [place] [address] Jazmin Vickers MD Encounter for loop recorder at end of battery life [Z45.09] (Primary Dx); Syncope and collapse Discharge Disposition: Discharge to home or self care 08/23/2024 Telephone [facility] [address] [place] [address] 8th [place] [address] [place] [id number] Jazmin Vickers MD from Last 3 Months Allergies Active Allergy Reactions Criticality Noted Date [...] (NORCO) 5-325 mg per tablet as needed Active phentermine 30 mg capsule Take 1 capsule (30 mg total) by mouth daily 5 Active Active Problems Problem Noted Date Diagnosed Date Palpitations 04/25/2021 Encounter for loop recorder at end of battery li fe 04/25/2021 Localized swelling of right lower leg 04/02/2021 Lipoma of right lower extremity 11/06/2020 Overview (11/06/2020): Added automatically from request for surgery [id number] Assessment & Plan (03/05/2021 2:22 PM CDT): [...] Date History of cardiovascular surgery 03/22/2017 04/25/2021 Social History Tobacco Use Types Packs/Day Years [...] on file Legal Sex Female 5:10 AM CREDIT COLLECTIONS REP Gender Identity Not on file Sexual Orientation Not on file Last Filed Vital Signs Vital Sign Reading Time Taken Comments Blood Pressure 132/87 09/11/2024 1:17 PM [facility] REP Pulse 86 09/11/2024 1:17 PM [facility] COLLECTIONS REP Temperature 36.7 C (98 F) 08/28/2024 7:25 AM [facility]LE[facility] REP Respiratory Rate 17 08/28/2024 12:25 PM CREDIT COLLECTIONS REP Oxygen Saturation 97% 09/11/2024 1:17 PM CREDIT COLLECTIONS REP Inhaled Oxygen Concentration - - Weight 91.3 kg (201 lb 3.2 oz) 09/11/2024 1:17 P M CREDIT COLLECTIONS REP Height 170.2 cm (5' 7 ) 09/11/2024 1:17 PM CREDIT COLLECTIONS REP Body Mass Index 31.51 09/11/2024 1:17 PM CREDIT COLLECTIONS REP Plan of Treatment Not on file Procedures Procedure Name Priority Date/Time Associated Diagnosis Comments LOOP RECORDER REMOVAL Routine 08/28/2024 11:24 AM [facility] Syncope and collapse EGFR Routine 08/28/2024 7:22 AM [facility] REP Syncope and collapse CBC WITHOUT DIFFERENTIAL Routine 08/28/2024 7:22 AM CREDIT COLLECTIONS REP Syncope and collapse BASIC METABOLIC PANEL Routine 08/28/2024 7:22 AM CREDIT COLLECTIONS REP Syncope and collapse from Last 3 Months Results * LOOP RECORDER REMOVAL (08/28/2024 11:24 AM CREDIT COLLECTIONS REP) Anatomical Region Laterality Modality X-Ray Angiograph y Narrative 08/28/2024 11:39 AM [facility]LE[facility] REP ELECTROPHYSIOLOGY PROCEDURE: REMOVAL OF IMPLANTABLE LOOP RECORDER Patient Name: Nat Riley Patient date of : 1975 Date of Procedure:08/28/2024 OPERATORS: 1. Jazmin Vickers MD [facility] 2.Elyse Dasilva MD [employer] PROCEDURES: 1. Removal of Medtronic LNQ11 SN [id number] TOTAL CONTRAST: 0 TOTAL FLUROSCOPY TIME:0.0 MEDICATIONS [...] device. The ILR is Medtronic LNQ11 SN [id number] The tract was irrigated with Vancocmycin. The incision was sutured closed in 3-0 Vicryl. Steri strips were paced over the incision and a sterile dressing was placed. The patient tolerated the procedure well without any complications. Sponge needle and instrument counts were correct x2 CONCLUSION: Successful removal of a Medtronic LNQ11 SN [id number] RECOMMENDATIONS: Remove dressing in three days Leave steristrips ON Pepcid 20 mg and Benadryl 25 mg prn itching at DC DC 1300 Attestation I was present for the entire procedure and prepared this report. Jazmin Vickers MD [facility] us Jazmin Vickers MD CV ELECTROPHYSIOLOGY PROCS Fin al Result * eGFR (08/28/2024 7:22 AM CREDIT COLLECTIONS REP) eGFR >90 >=60 mL/min/1. 73 m2 Comment: [...] of Race in Diagnosing Kidney Disease, JASN 2020). The CKD-EPI equation should not be used for patients with unstable renal function and has not been validated in children and those over 70. Current interpretive data was last reviewed 2021. Blood 08/28/2024 7:22 AM CREDIT COLLECTIONS REP 08/28/2024 7:57 AM CREDIT COLLECTIONS REP us Jazmin Vickers MD LAB BLOOD ORDERABLES Final Res ult [facility] Department [place] [address] * (ABNORMAL) CBC without differential (08/28/2024 7:22 AM CREDIT COLLECTIONS REP) WBC 12.1(H) 3.8 - 9.9 K/cumm Hgb 14.1 11.9 - 15.5 g/dL [facility] Hct 42.3 35.6 - 45.5 % [facility] Plt 277 150 - 400 K/cumm [facility] MPV 10.1 9.1 - 12.3 fL [facility] RBC 4.88 3.90 - 5.20 M/cumm [facility] MCV 86.7 81.3 - 96.4 fL [facility] MCH 28.9 27.1 - 33.3 pg [facility] MCHC 33.3 32.3 - 35.7 g/dL [facility] RDW CV 13.1 11.1 - 14.9 % [facility] RDW SD 41.1 35.7 - 48.1 fL [facility] NRBC abs 0.00 0.00 - 0.01 K/cumm [facility] Blood 08/28/2024 7:22 AM CREDIT COLLECTIONS REP 08/28/2024 7:45 AM CREDIT COLLECTIONS REP Narrative [facility] - 08/28/2024 8:05 AM CREDIT COLLECTIONS REP If most recent labs were drawn prior to 4 AM, draw only prior to initiating procedure. Jazmin Vickers MD LAB BLOOD ORDERABLES Final Res ult [facility] Department [place] [address] * Basic metabolic panel (08/28/2024 7:22 AM CREDIT COLLECTIONS REP) Sodium 142 135 - 145 mmol/L Potassium, pl 4.0 3.3 - 4.9 mmol/L [facility] Chloride 104 97 - 110 mmol/L [facility] CO2 27 22 - 32 mmol/L [facility] Anion gap 11 2 - 15 mmol/L [facility] BUN 7 6 - 25 mg/dL [facility] Creatinine 0.75 0.60 - 1.10 mg/dL [facility] Glucose 94 70 - 199 mg/dL [facility] Comment: Interpretive Data Fasting glucose >/= 126 [...] classification and Diagnosis of Diabetes Diabetes Care 202; 46: S19-S40. Current interpretive data was last revised 2022. Calcium 9.1 8.5 - 10.3 mg/dL [facility] Blood 08/28/2024 7:22 AM CREDIT COLLECTIONS REP 08/28/2024 7:44 AM CREDIT COLLECTIONS REP Jazmin Vickers MD LAB BLOOD ORDERABLES Final Res ult [facility] Department [place] [address] from Last [address] [place] [address] [employer] O[employer] Care Teams Metal Spray Operator Relationship Specialty Start Date End Date Tong Becker MD PCP - General Family Medicine 11/06/20
--- OUTSIDE RECORDS SUMMARY | 2024-11-19 13:40 | XMS_ITS | Encounter Summary ---
Author Organization [facility] Address [address] [place] [address] Phone Care Team Providers Care Race Relations Adviser Name Role Phone Shar Rodriguez MD Primary Care Provider [phone] Tong Becker MD Primary Care Provider [phone] Encounter Details Date Type Department Care Team (Late st Contact Info) Description 03/27/2016 Orders Only [facility] CLINCON[facility] ProviderKeon MD [address] [place] [address] Social History Tobacco Use Types Packs/Day Years Used Date Smoking Tobacco: Never Assessed Comments Unknown Sex and Gender Information Value Date Recorded Sex Assigned at Not on file Legal Sex Female 5:10 AM LAUNDRY TUB MAKER Gender Identity Not on file Sexual Orientation Not on file documented as of this encounter Plan of Treatment Not on file documented as of this encounter Procedures Procedure Name Priority Date/Time Associated Diagnosis Comments CARDIOLOGY REPORT 03/27/2016 CARDIOLOGY REPORT 03/27/2016 documented in this encounter Results * CARDIOLOGY REPORT (03/27/2016) Anatomical Region Laterality Modality Other Narrative 03/27/2016 Ordered by an unspecified provider. Historical Provider CV CARDIAC SERVICES KEV RODRIGUEZ Final Result * CARDIOLOGY REPORT (03/27/2016) Anatomical Region Laterality Modality Other Narrative 03/27/2016 Ordered by an unspecified provider. Historical Provider CV CARDIAC SERVICES KEV RODRIGUEZ Final Result documented in this encounter Visit Diagnoses Not on filedocumented in this encounter Care Teams Race Relations Adviser Relationship Specialty Start Date End Date Shar Rodriguez MD [address] [place] [address] PCP - General 12/21/16 11/05/20 Tong Becker MD [address] [place] [address] PCP - General Family Medicine 11/06/20 documented as of this encounter
--- OUTSIDE RECORDS SUMMARY | 2024-11-19 13:40 | XMS_ITS | Encounter Summary ---
Author Organization [facility] Address [address] [place] [address] Phone Care Team Providers Care Senior Patient Account Representative Name Role Phone Shar Rodriguez MD Primary Care Provider [phone] Tong Becker MD Primary Care Provider [phone] Encounter Details Date Type Department Care Team (Late st Contact Info) Description 09/27/2016 Orders Only [facility] CAR CLINCONV ProviderKeon MD [address] [place] [address] Social History Tobacco Use Types Packs/Day Years Used Date Smoking Tobacco: Never Assessed Comments Unknown Sex and Gender Information Value Date Recorded Sex Assigned at Not on file Legal Sex Female 5:10 AM DENTAL LABORATORY SUPERVISOR Gender Identity Not on file Sexual Orientation Not on file documented as of this encounter Plan of Treatment Not on file documented as of this encounter Procedures Procedure Name Priority Date/Time Associated Diagnosis Comments CARDIOLOGY REPORT 09/27/2016 CARDIOLOGY REPORT 09/27/2016 documented in this encounter Results * CARDIOLOGY REPORT (09/27/2016) Anatomical Region Laterality Modality Other Narrative 09/27/2016 Ordered by an unspecified provider. Historical Provider CV CARDIAC SERVICES KEV RODRIGUEZ Final Result * CARDIOLOGY REPORT (09/27/2016) Anatomical Region Laterality Modality Other Narrative 09/27/2016 Ordered by an unspecified provider. Historical Provider CV CARDIAC SERVICES KEV RODRIGUEZ Final Result documented in this encounter Visit Diagnoses Not on filedocumented in this encounter Care Teams Senior Patient Account Representative Relationship Specialty Start Date End Date Shar Rodriguez MD [address] [place] [address] PCP - General 12/21/16 11/05/20 Tong Becker MD [address] [place] [address] PCP - General Family Medicine 11/06/20 documented as of this encounter
--- OUTSIDE RECORDS SUMMARY | 2024-11-19 13:40 | XMS_ITS | Encounter Summary ---
Author Organization [facility] Address [address] [place] [address] Phone Care Team Providers Care Painter Assistant Name Role Phone Shar Rodriguez MD Primary Care Provider [phone] Tong Becker MD Primary Care Provider [phone] Encounter Details Date Type Department Care Team (Late st Contact Info) Description 09/22/2016 Orders Only [facility] CLINCON[facility] ProviderKeon MD [address] [place] [address] Social History Tobacco Use Types Packs/Day Years Used Date Smoking Tobacco: Never Assessed Comments Unknown Sex and Gender Information Value Date Recorded Sex Assigned at Not on file Legal Sex Female 5:10 AM FAST BRIM POUNCER Gender Identity Not on file Sexual Orientation Not on file documented as of this encounter Plan of Treatment Not on file documented as of this encounter Procedures Procedure Name Priority Date/Time Associated Diagnosis Comments CARDIOLOGY REPORT 09/22/2016 CARDIOLOGY REPORT 09/22/2016 documented in this encounter Results * CARDIOLOGY REPORT (09/22/2016) Anatomical Region Laterality Modality Other Narrative 09/22/2016 Ordered by an unspecified provider. Historical Provider CV CARDIAC SERVICES KEV RODRIGUEZ Final Result * CARDIOLOGY REPORT (09/22/2016) Anatomical Region Laterality Modality Other Narrative 09/22/2016 Ordered by an unspecified provider. Historical Provider CV CARDIAC SERVICES KEV RODRIGUEZ Final Result documented in this encounter Visit Diagnoses Not on filedocumented in this encounter Care Teams Painter Assistant Relationship Specialty Start Date End Date Shar Rodriguez MD [address] [place] [address] PCP - General 12/21/16 11/05/20 Tong Becker MD [address] [place] [address] PCP - General Family Medicine 11/06/20 documented as of this encounter
--- OUTSIDE RECORDS SUMMARY | 2024-11-19 13:40 | XMS_ITS | Encounter Summary ---
Author Organization [facility] Address [address] [place] [address] Phone Care Team Providers Care Adult Neuropsychologist Name Role Phone Shar Rodriguez MD Primary Care Provider [phone] Tong Becker MD Primary Care Provider [phone] Encounter Details Date Type Department Care Team (Late st Contact Info) Description 05/10/2016 Orders Only [facility] CLINCON[facility] ProviderKeon MD [address] [place] [address] Social History Tobacco Use Types Packs/Day Years Used Date Smoking Tobacco: Never Assessed Comments Unknown Sex and Gender Information Value Date Recorded Sex Assigned at Not on file 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 Historical Provider CV CARDIAC SERVICES KEV RODRIGUEZ Final Result * CARDIOLOGY REPORT (05/10/2016) Anatomical Region Laterality Modality Other Narrative 05/10/2016 Ordered by an unspecified provider. Historical Provider CV CARDIAC SERVICES KEV RODRIGUEZ Final Result documented in this encounter Visit Diagnoses Not on filedocumented in this encounter Care Teams Adult Neuropsychologist Relationship Specialty Start Date End Date Shar Rodriguez MD [address] [place] [address] PCP - General 12/21/16 11/05/20 Tong Becker MD [address] [place] [address] PCP - General Family Medicine 11/06/20 documented as of this encounter
--- OUTSIDE RECORDS SUMMARY | 2024-11-19 13:40 | XMS_ITS | Encounter Summary ---
Author Organization [facility] Address [address] [place] [address] Phone Care Team Providers Care News Cameraman Name Role Phone Shar Rodriguez MD Primary Care Provider [phone] Tong Becker MD Primary Care Provider [phone] Encounter Details Date Type Department Care Team (Late st Contact Info) Description 12/31/2014 Orders Only [facility] CLINCONV Provider, MD Keon [address] [place] [address] Social History Tobacco Use Types Packs/Day Years Used Date Smoking Tobacco: Never Assessed Comments Unknown Sex and Gender Information Value Date Recorded Sex Assigned at Not on file 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 Historical Provider CV CARDIAC SERVICES KEV RODRIGUEZ Final Result documented in this encounter Visit Diagnoses Not on filedocumented in this encounter Care Teams News Cameraman Relationship Specialty Start Date End Date Shar Rodriguez MD [address] [place] [address] PCP - General 12/21/16 11/05/20 Tong Becker MD [address] [facility] [address] [facility] [address] [place] [address] PCP - General Family Medicine 11/06/20 documented as of this encounter
--- OUTSIDE RECORDS SUMMARY | 2024-11-19 13:40 | XMS_ITS | Encounter Summary ---
Author Organization [facility] Address [address] [place] [address] Phone Care Team Providers Care Cabinet And Trim Installer Name Role Phone Shar Rodriguez MD Primary Care Provider [phone] Tong Becker MD Primary Care Provider [phone] Encounter Details Date Type Department Care Team (Late st Contact Info) Description 05/24/2017 Orders Only [facility] Provider, MD Keon [address] [place] [address] Social History Tobacco Use Types Packs/Day Years Used Date Smoking Tobacco: Never Comments Unknown Sex and Gender Information Value Date Recorded Sex Assigned at Not on file 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 Historical Provider [facility] KEV RODRIGUEZ Final Result documented in this encounter Visit Diagnoses Not on filedocumented in this encounter Care Teams Cabinet And Trim Installer Relationship Specialty Start Date End Date Shar Rodriguez MD [address] [place] [address] PCP - General 12/21/16 11/05/20 Tong Becker MD [address] [facility] [address] [place] [address] PCP - General Family Medicine 11/06/20 documented as of this encounter
--- OUTSIDE RECORDS SUMMARY | 2024-11-19 13:40 | XMS_ITS | Encounter Summary ---
Author Organization [facility] Address [address] [place] [address] Phone Care Team Providers Care Assistant Portfolio Manager Name Role Phone Shar Rodriguez MD Primary Care Provider [phone] Tong Becker MD Primary Care Provider [phone] Encounter Details Date Type Department Care Team (Late st Contact Info) Description 06/30/2015 Orders Only [facility] ProviderKeon MD [address] [place] [address] Social History Tobacco Use Types Packs/Day Years Used Date Smoking Tobacco: Never Assessed Comments Unknown Sex and Gender Information Value Date Recorded Sex Assigned at Not on file 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 Historical Provider [facility] KEV RODRIGUEZ Final Result * CARDIOLOGY REPORT (06/30/2015) Anatomical Region Laterality Modality Other Narrative 06/30/2015 Ordered by an unspecified provider. Historical Provider [facility] KEV RODRIGUEZ Final Result documented in this encounter Visit Diagnoses Not on filedocumented in this encounter Care Teams Assistant Portfolio Manager Relationship Specialty Start Date End Date Shar Rodriguez MD [address] [place] [address] PCP - General 12/21/16 11/05/20 Tong Becker MD [address] [place] [address] PCP - General Family Medicine 11/06/20 documented as of this encounter
--- OUTSIDE RECORDS SUMMARY | 2024-11-19 13:40 | XMS_ITS | Encounter Summary ---
Author Organization [facility] Address [address] [place] [address] Phone Care Team Providers Care Milk Delivery Driver Name Role Phone Shar Rodriguez MD Primary Care Provider [phone] Tong Becker MD Primary Care Provider [phone] Encounter Details Date Type Department Care Team (Late st Contact Info) Description 11/09/2016 Orders Only [facility] ProviderKeon MD [address] [place] [address] Social History Tobacco Use Types Packs/Day Years Used Date Smoking Tobacco: Never Assessed Comments Unknown Sex and Gender Information Value Date Recorded Sex Assigned at Not on file 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 Historical Provider [facility] KEV RODRIGUEZ Final Result * CARDIOLOGY REPORT (11/09/2016) Anatomical Region Laterality Modality Other Narrative 11/09/2016 Ordered by an unspecified provider. Historical Provider CV CARDI[facility] SERVICES KEV RODRIGUEZ Final Result documented in this encounter Visit Diagnoses Not on filedocumented in this encounter Care Teams Milk Delivery Driver Relationship Specialty Start Date End Date Shar Rodriguez MD [address] [place] [address] PCP - General 12/21/16 11/05/20 Tong Becker MD [address] [place] [address] PCP - General Family Medicine 11/06/20 documented as of this encounter
--- OUTSIDE RECORDS SUMMARY | 2024-11-19 13:40 | XMS_ITS | Encounter Summary ---
Author Organization [facility] Address [address] [place] [address] Phone Care Team Providers Care Naturopathic Oncology Provider Name Role Phone Shar Rodriguez MD Primary Care Provider [phone] Tong Becker MD Primary Care Provider [phone] Encounter Details Date Type Department Care Team (Late st Contact Info) Description 07/29/2014 Orders Only [facility] Provider, MD Keon [address] [place] [address] Social History Tobacco Use Types Packs/Day Years Used Date Smoking Tobacco: Never Assessed Comments Unknown Sex and Gender Information Value Date Recorded Sex Assigned at Not on file 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 Historical Provider [facility] KEV RODRIGUEZ Final Result documented in this encounter Visit Diagnoses Not on filedocumented in this encounter Care Teams Naturopathic Oncology Provider Relationship Specialty Start Date End Date Shar Rodriguez MD [address] [place] [address] PCP - General 12/21/16 11/05/20 Tong Becker MD [address] [facility] [address] [facility] [address] [place] [address] PCP - General Family Medicine 11/06/20 documented as of this encounter
[2024-11-19 13:42] VITALS: BP 118/88; PULSE 82; RESP 18; TEMP 36.1; O2SAT 97
--- NOTE | 2024-11-19 14:10 | ED.GENADULT ---
HPI - General Adult General Chief complaint: Upper Respiratory Infection Stated complaint: Cough/Headache Source: patient Mode of arrival: ambulatory Limitations: no limitations History of Present Illness HPI narrative: Patient presents for evaluation of sick symptoms for last 2 days. Symptoms include sinus congestion, thick green nasal drainage, cough, frontal and bilateral maxillary sinus pain. No nausea, vomiting, diarrhea. No recent sick contacts to her knowledge. She has been taking Zyrtec and benadryl for her symptoms. She does not smoke, Related Data Home Medications ?Medication ?Instructions ?Recorded ?Confirmed ?Last Taken ?Type multivitamin 1 tablet PO DAILY 09/19/19 10/30/24 07/12/24 History alprazolam 0.5 mg tablet 0.5 mg PO BID PRN anxiety 04/01/22 10/30/24 07/12/24 History cholecalciferol (vitamin D3) 125 125 mcg PO DAILY 04/01/22 10/30/24 07/12/24 History mcg (5,000 unit) tablet (Vitamin D3) prednisone 20 mg tablet mg 11/19/24 Unknown History Allergies Allergy/AdvReac Type Severity Reaction Status Date / Time amoxicillin Allergy Mild Rash Verified 11/19/24 13:54 vancomycin Allergy Mild Rash Verified 11/19/24 13:54 bupropion Allergy Unknown SEIZURE Verified 11/19/24 13:54 latex Allergy Unknown RASH, Verified 11/19/24 13:54 ITCHING Penicillins Allergy Unknown RASH Verified 11/19/24 13:54 propoxyphene AdvReac Mild NAUSEA/VOMI Verified 11/19/24 13:54 TING erythromycin base AdvReac Unknown N/V;DIZZINE Verified 11/19/24 13:54 SS Review of Systems Review of Systems: CONSTITUTIONAL: Denies fever, chills, or sweats. EYES: Denies visual changes, redness, or discharge. ENT: Reports sinus congestion, thick green nasal drainage. CARDIOVASCULAR: Denies chest pain, palpitations, or edema. RESPIRATORY: Reports cough. Denies shortness of breath. GASTROINTESTINAL: Denies abdominal pain, nausea, vomiting, or diarrhea. GENITOURINARY: Denies dysuria or hematuria. SKIN: Denies rash or itching. MUSCULOSKELETAL: Denies back pain, joint pain, or myalgia. NEUROLOGIC: Reports headache. Denies numbness, dizziness, or weakness. PSYCHIATRIC: Denies anxiety or depression. FOR[facility]LY [facility], [facility] Past Medical History Medical History Endometriosis Depression BMI 32.0-32.9,adult Pelvic pain Sore throat Fatigue Fever Colon cancer screening Gastritis Dysphagia Eosinophilic esophagitis Medial meniscus tear Acute pain of left knee Neck pain on right side BMI 34.0-34.9,adult BMI 33.0-33.9,adult Weight gain Adult BMI 31.0-31.9 kg/sq m Surgical History Surgical History Status post arthroscopic partial medial meniscectomy of right knee (~08/08/24) H/O: hysterectomy H/O knee surgery History of loop recorder History of removal of ovarian cyst Hx of tubal ligation History of gastric surgery Hx of dilation and curettage Family History Family History Father Family history of migraine headaches Hypertension Malignant neoplasm of prostate Sibling Hypertension Suicide Mother No problems noted. Other Diabetes mellitus Family history of cardiovascular disease Social History Social History Social History: Recently lost brother to suicide. Smoking status: Never smoker Second hand tobacco smoke exposure: Yes Alcohol intake: current Alcohol use details: 2 PER YEAR Substance use: never Substance use type: does not use Do You Feel Safe in your Home?: Yes Lack of Transportation: No Lack of Food: Never True Current Housing: I Have Housing Concerned About Future Housing: Decline to Answer Difficulty Paying Gas/Electric Bills: Decline to Answer Difficulty Paying for Meds: Decline to Answer Currently Unemployed: Decline to Answer Education: Decline to Answer Difficulty w/ Childcare or Family Care: Decline to Answer Living arrangements: with family Occupation/Education: occupation Additional occupation/education comments: [employer] Gender identity (if verbalized by the patient): Female Sexual Orientation (if Verbalized by the Patient): Straight or Heterosexual Spiritual care concerns: No Exam Narrative: GENERAL: Well-appearing, well-nourished, and in no acute distress. HEAD: Normocephalic, atraumatic. EYES: PERRLA and EOMI. ENT: Nares clear, no rhinorrhea or epistaxis. Mucous membranes moist. Oropharynx without tonsillar hypertrophy exudate or other lesions. Bilateral TMs pearly engle nonbulging NECK: Supple. No adenopathy or masses. No carotid bruits or JVD CHEST: Clear to auscultation. No respiratory distress. No wheezes rales or rhonchi HEART: Regular rate and rhythm. No murmur heard. Normal peripheral pulses. ABDOMEN: Soft, nontender, nondistended, normal active bowel sounds. EXTREMITIES: Normal range of motion. No edema. SKIN: Warm, dry, no rash. NEURO: No focal deficits. Alert and oriented x3. PSYCH: Normal mood and affect. Course Course Emergency Course: This is a 49 yr old female who presented for evaluation of sinus symptoms. She meets criteria for ABRS based upon mucopurulent nature of her discharge. Will dc with doxycycline. Follow up with primary provider. OTC meds such as sudafed and flonase may help. Go to the ER for worsening symptoms. Pt in agreement with plan of care. Level of Care: Express Care Visit Vital Signs Vital signs: Vital Signs Temperature 36.1 C L 11/19/24 13:42 Pulse Rate 82 11/19/24 13:42 Respiratory Rate 18 11/19/24 13:42 Blood Pressure 118/88 11/19/24 13:42 Pulse Oximetry 97 11/19/24 13:42 Oxygen Delivery Room Air 11/19/24 13:42 Temperature 36.1 C L 11/19/24 13:42 Pulse Rate 82 11/19/24 13:42 Respiratory Rate 18 11/19/24 13:42 Blood Pressure 118/88 11/19/24 13:42 Pulse Oximetry 97 11/19/24 13:42 Oxygen Delivery Room Air 11/19/24 13:42 Medical Decision Making Vital Signs Vital Signs: Vital Signs Temperature 36.1 C L 11/19/24 13:42 Pulse Rate 82 11/19/24 13:42 Respiratory Rate 18 11/19/24 13:42 Blood Pressure 118/88 11/19/24 13:42 Pulse Oximetry 97 11/19/24 13:42 Oxygen Delivery Room Air 11/19/24 13:42 Temperature 36.1 C L 11/19/24 13:42 Pulse Rate 82 11/19/24 13:42 Respiratory Rate 18 11/19/24 13:42 Blood Pressure 118/88 11/19/24 13:42 Pulse Oximetry 97 11/19/24 13:42 Oxygen Delivery Room Air 11/19/24 13:42 Discharge Plan Discharge Clinical Impression: Sinusitis Patient Disposition: Home Condition: Stable Instructions: Antibiotic Form, Sinusitis (ED) Patient Language: Sami Prescriptions: New doxycycline hyclate 100 mg capsule 100 mg PO BID Qty: 20 0RF No Action prednisone 20 mg tablet multivitamin Tablet 1 tablet PO DAILY cholecalciferol (vitamin D3) [Vitamin D3] 125 mcg (5,000 unit) Tablet 125 mcg PO DAILY alprazolam 0.5 mg tablet 0.5 mg PO BID PRN (Reason: anxiety) Follow-up/Referrals: Tong Becker MD [Primary Care Provider] - Time of Disposition: 14:05
== END 2024-11-19 14:07 | disposition home or self-care (01) ==
PROVIDERS: Emergency Provider Nurse Practitioner; PCP Family Medicine
DX: J32.9 Chronic sinusitis, unspecified (principal); N80.9 Endometriosis, unspecified; K20.0 Eosinophilic esophagitis
CPT/HCPCS: 99213; G0463

== ENCOUNTER 2025-02-13 17:16 | Outpatient (CLI) | payer OTHER, SELFPAY ==
--- NOTE | ~2025-02-13 | XR_ITS ---
HISTORY: Z98.890 - Other specified postprocedural states COMPARISON: 06/08/2024 TECHNIQUE: 4 views of the right knee were performed FINDINGS: No acute or subacute fracture. Medial tibiofemoral joint space narrowing is identified. No suprapatellar joint effusion is identified. The infrapatellar joint space is clear. IMPRESSION: Degenerative disease, without acute fracture. Reviewed, dictated and finalized at location A.
--- OUTSIDE RECORDS SUMMARY | 2025-02-13 17:20 | XMS_ITS | Encounter Summary ---
Author Organization [facility] Address [address] [place] [address] Phone Care Team Providers Care Oil Well Cable Tool Driller Name Role Phone Shar Rodriguez MD Primary Care Provider [phone] Tong Becker MD Primary Care Provider [phone] Encounter Details Date Type Department Care Team (Late st Contact Info) Description 07/29/2014 Orders Only [facility] Provider, MD Keon [address] [place] [address] Social History Tobacco Use Types Packs/Day Years Used Date Smoking Tobacco: Never Assessed Comments Unknown Sex and Gender Information Value Date Recorded Sex Assigned at Not on file 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 [address] [place] [address] PCP - General Family Medicine 11/06/20 documented as of this encounter
--- OUTSIDE RECORDS SUMMARY | 2025-02-13 17:20 | XMS_ITS | Encounter Summary ---
Author Organization [facility] Address [address] [place] [address] Phone Care Team Providers Care Delphi Programmer Name Role Phone Shar Rodriguez MD Primary Care Provider [phone] Tong Becker MD Primary Care Provider [phone] Encounter Details Date Type Department Care Team (Late st Contact Info) Description 08/14/2015 Orders Only [facility] ProviderKeon MD [address] [place] [address] Social History Tobacco Use Types Packs/Day Years Used Date Smoking Tobacco: Never Assessed Comments Unknown Sex and Gender Information Value Date Recorded Sex Assigned at Not on file 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
--- OUTSIDE RECORDS SUMMARY | 2025-02-13 17:20 | XMS_ITS | Encounter Summary ---
Author Organization [facility] Address [address] [place] [address] Phone Care Team Providers Care Glass Engraver Name Role Phone Shar Rodriguez MD Primary Care Provider [phone] Tong Becker MD Primary Care Provider [phone] Encounter Details Date Type Department Care Team (Late st Contact Info) Description 03/02/2015 Orders Only [facility] ProviderKeon MD [address] [place] [address] Social History Tobacco Use Types Packs/Day Years Used Date Smoking Tobacco: Never Assessed Comments Unknown Sex and Gender Information Value Date Recorded Sex Assigned at Not on file 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
--- OUTSIDE RECORDS SUMMARY | 2025-02-13 17:20 | XMS_ITS | Encounter Summary ---
Author Organization [facility] Address [address] [place] [address] Phone Care Team Providers Care Doctor Of Podiatric Medicine Name Role Phone Shar Rodriguez MD Primary Care Provider [phone] Tong Becker MD Primary Care Provider [phone] Encounter Details Date Type Department Care Team (Late st Contact Info) Description 09/22/2016 Orders Only [facility] ProviderKeon MD [address] [place] [address] Social History Tobacco Use Types Packs/Day Years Used Date Smoking Tobacco: Never Assessed Comments Unknown Sex and Gender Information Value Date Recorded Sex Assigned at Not on file Legal Sex Female 5:10 AM TUB RIDER Gender Identity Not on file Sexual Orientation [...] on filedocumented in this encounter Care Teams Doctor Of Podiatric Medicine Relationship Specialty Start Date End Date Shar Rodriguez MD [address] [place] [address] PCP - General 12/21/16 11/05/20 Tong Becker MD [address] [place] [address] PCP - General Family Medicine 11/06/20 documented as of this encounter
--- OUTSIDE RECORDS SUMMARY | 2025-02-13 17:20 | XMS_ITS | Encounter Summary ---
Author Organization [facility] Address [address] [place] [address] Phone Care Team Providers Care Retail Beauty Specialist Name Role Phone Shar Rodriguez MD Primary Care Provider [phone] Tong Becker MD Primary Care Provider [phone] Encounter Details Date Type Department Care Team (Late st Contact Info) Description 04/01/2015 Orders Only [facility] ProviderKeon MD [address] [place] [address] Social History Tobacco Use Types Packs/Day Years Used Date Smoking Tobacco: Never Assessed Comments Unknown Sex and Gender Information Value Date Recorded Sex Assigned at Not on file 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
--- OUTSIDE RECORDS SUMMARY | 2025-02-13 17:20 | XMS_ITS | Referral Summary ---
Author Organization [facility] Address [address] [place] [address] Care Team Providers Care Nuclear Waste Management Engineer Name Role Phone Tong Becker MD Primary Care Provider [phone] Allergies Active Allergy Reactions Criticality Noted Date [...] (11/06/2020): Added automatically from request for surgery [id number] Assessment & Plan (03/05/2021 2:22 PM CDT): [...] on file Legal Sex Female 5:10 AM CODER Gender Identity Not on file Sexual Orientation Not on file Last Filed Vital Signs Vital Sign Reading Time Taken Comments Blood Pressure 132/87 09/11/2024 1:17 PM CODER Pulse 86 09/11/2024 1:17 PM CODER Temperature 36.7 C (98 F) 08/28/2024 7:25 AM CODER Respiratory Rate 17 08/28/2024 12:25 PM CODER Oxygen Saturation 97% 09/11/2024 1:17 PM CODER Inhaled Oxygen Concentration - - Weight 91.3 kg (201 lb 3.2 oz) 09/11/2024 1:17 P M CODER Height 170.2 cm (5' 7) 09/11/2024 1:17 PM CODER Body Mass Index 31.51 09/11/2024 1:17 PM CODER Plan of Treatment Not on file [place] [place] [address] [facility] O[facility] Care Teams Nuclear Waste Management Engineer Relationship Specialty Start Date End Date Tong Becker MD PCP - General Family Medicine 11/06/20
--- OUTSIDE RECORDS SUMMARY | 2025-02-13 17:20 | XMS_ITS | Encounter Summary ---
Author Organization [facility] Address [address] [place] [address] Phone Care Team Providers Care Police Commanding Officer Name Role Phone Shar Rodriguez MD Primary Care Provider [phone] Tong Becker MD Primary Care Provider [phone] Encounter Details Date Type Department Care Team (Late st Contact Info) Description 05/09/2014 Orders Only [facility] Provider, MD Keon [address] [place] [address] Social History Tobacco Use Types Packs/Day Years Used Date Smoking Tobacco: Never Assessed Comments Unknown Sex and Gender Information Value Date Recorded Sex Assigned at Not on file 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
--- OUTSIDE RECORDS SUMMARY | 2025-02-13 17:20 | XMS_ITS | Encounter Summary ---
Author Organization [facility] Address [address] [place] [address] Phone Care Team Providers Care Eligibility Clerk Name Role Phone Shar Rodriguez MD Primary Care Provider [phone] Tong Becker MD Primary Care Provider [phone] Encounter Details Date Type Department Care Team (Late st Contact Info) Description 09/27/2016 Orders Only [facility] CLINCONV ProviderKeon MD [address] [place] [address] Social History Tobacco Use Types Packs/Day Years Used Date Smoking Tobacco: Never Assessed Comments Unknown Sex and Gender Information Value Date Recorded Sex Assigned at Not on file 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 Historical Provider [facility] KEV RORDIGUEZ Final Result documented in this encounter Visit Diagnoses Not on filedocumented in this encounter Care Teams Eligibility Clerk Relationship Specialty Start Date End Date Shar Rodriguez MD [address] [place] [address] PCP - General 12/21/16 11/05/20 Tong Becker MD [address] [place] [address] PCP - General Family Medicine 11/06/20 documented as of this encounter
--- OUTSIDE RECORDS SUMMARY | 2025-02-13 17:20 | XMS_ITS | Encounter Summary ---
Author Organization [facility] Address [address] [place] [address] Phone Care Team Providers Care Health Education Teacher Name Role Phone Shar Rodriguez MD Primary Care Provider [phone] Tong Becker MD Primary Care Provider [phone] Encounter Details Date Type Department Care Team (Late st Contact Info) Description 09/29/2014 Orders Only [facility]INCONV Provider, MD Keon [address] [place] [address] Social History Tobacco Use Types Packs/Day Years Used Date Smoking Tobacco: Never Assessed Comments Unknown Sex and Gender Information Value Date Recorded Sex Assigned at Not on file 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
--- OUTSIDE RECORDS SUMMARY | 2025-02-13 17:20 | XMS_ITS | Encounter Summary ---
Author Organization [facility] Address [address] [place] [address] Phone Care Team Providers Care Film Flat Inspector Name Role Phone Shar Rodriguez MD Primary Care Provider [phone] Tong Becker MD Primary Care Provider [phone] Encounter Details Date Type Department Care Team (Late st Contact Info) Description 06/28/2014 Orders Only [facility] CLINCONV Provider, MD Keon [address] [place] [address] Social History Tobacco Use Types Packs/Day Years Used Date Smoking Tobacco: Never Assessed Comments Unknown Sex and Gender Information Value Date Recorded Sex Assigned at Not on file 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
--- OUTSIDE RECORDS SUMMARY | 2025-02-13 17:20 | XMS_ITS | Encounter Summary ---
Author Organization [facility] Address [address] [place] [address] Phone Care Team Providers Care Police Academy Instructor Name Role Phone Shar Rodriguez MD Primary Care Provider [phone] Tong Becker MD Primary Care Provider [phone] Encounter Details Date Type Department Care Team (Late st Contact Info) Description 05/10/2016 Orders Only [facility] CLINCONV ProviderKeon MD [address] [place] [address] Social History Tobacco Use Types Packs/Day Years Used Date Smoking Tobacco: Never Assessed Comments Unknown Sex and Gender Information Value Date Recorded Sex Assigned at Not on file 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
--- OUTSIDE RECORDS SUMMARY | 2025-02-13 17:20 | XMS_ITS | Encounter Summary ---
Author Organization [facility] Address [address] [place] [address] Phone Care Team Providers Care Belt Splicer Name Role Phone Shar Rodriguez MD Primary Care Provider [phone] Tong Becker MD Primary Care Provider [phone] Encounter Details Date Type Department Care Team (Late st Contact Info) Description 12/31/2014 Orders Only [facility] CLINCONV Provider, MD Keon [address] [place] [address] Social History Tobacco Use Types Packs/Day Years Used Date Smoking Tobacco: Never Assessed Comments Unknown Sex and Gender Information Value Date Recorded Sex Assigned at Not on file 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
--- OUTSIDE RECORDS SUMMARY | 2025-02-13 17:20 | XMS_ITS | Encounter Summary ---
Author Organization [facility] Address [address] [place] [address] Phone Care Team Providers Care Instructor Flying Name Role Phone Shar Rodriguez MD Primary Care Provider [phone] Tong Becker MD Primary Care Provider [phone] Encounter Details Date Type Department Care Team (Late st Contact Info) Description 05/24/2017 Orders Only [facility] CLINCONV Provider, MD Keon [address] [place] [address] Social History Tobacco Use Types Packs/Day Years Used Date Smoking Tobacco: Never Comments Unknown Sex and Gender Information Value Date Recorded Sex Assigned at Not on file 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
--- OUTSIDE RECORDS SUMMARY | 2025-02-13 17:20 | XMS_ITS | Encounter Summary ---
Author Organization [facility] Address [address] [place] [address] Phone Care Team Providers Care Car Cleaning Supervisor Name Role Phone Shar Rodriguez MD Primary Care Provider [phone] Tong Becker MD Primary Care Provider [phone] Encounter Details Date Type Department Care Team (Late st Contact Info) Description 10/30/2014 Orders Only [facility] CLINCONV Provider, MD Keon [address] [place] [address] Social History Tobacco Use Types Packs/Day Years Used Date Smoking Tobacco: Never Assessed Comments Unknown Sex and Gender Information Value Date Recorded Sex Assigned at Not on file 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
--- OUTSIDE RECORDS SUMMARY | 2025-02-13 17:20 | XMS_ITS | Encounter Summary ---
Author Organization [facility] Address [address] [place] [address] Phone Care Team Providers Care Pastor Name Role Phone Shar Rodriguez MD Primary Care Provider [phone] Tong Becker MD Primary Care Provider [phone] Encounter Details Date Type Department Care Team (Late st Contact Info) Description 08/29/2014 Orders Only [facility] CLINCONV Provider, MD Keon [address] [place] [address] Social History Tobacco Use Types Packs/Day Years Used Date Smoking Tobacco: Never Assessed Comments Unknown Sex and Gender Information Value Date Recorded Sex Assigned at Not on file 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
--- OUTSIDE RECORDS SUMMARY | 2025-02-13 17:20 | XMS_ITS | Encounter Summary ---
Author Organization [facility] Address [address] [place] [address] Phone Care Team Providers Care Evidence Specialist Name Role Phone Shar Rodriguez MD Primary Care Provider [phone] Tong Becker MD Primary Care Provider [phone] Encounter Details Date Type Department Care Team (Late st Contact Info) Description 11/09/2016 Orders Only [facility] CLINCONV ProviderKeon MD [address] [place] [address] Social History Tobacco Use Types Packs/Day Years Used Date Smoking Tobacco: Never Assessed Comments Unknown Sex and Gender Information Value Date Recorded Sex Assigned at Not on file 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
--- OUTSIDE RECORDS SUMMARY | 2025-02-13 17:20 | XMS_ITS | Encounter Summary ---
Author Organization [facility] Address [address] [place] [address] Phone Care Team Providers Care Creative Services Designer Name Role Phone Shar Rodriguez MD Primary Care Provider [phone] Tong Becker MD Primary Care Provider [phone] Encounter Details Date Type Department Care Team (Late st Contact Info) Description 01/31/2015 Orders Only [facility] CLINCONV ProviderKeon MD [address] [place] [address] Social History Tobacco Use Types Packs/Day Years Used Date Smoking Tobacco: Never Assessed Comments Unknown Sex and Gender Information Value Date Recorded Sex Assigned at Not on file 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
--- OUTSIDE RECORDS SUMMARY | 2025-02-13 17:20 | XMS_ITS | Encounter Summary ---
Author Organization [facility] Address [address] [place] [address] Phone Care Team Providers Care Oyster Harvester Name Role Phone Shar Rodriguez MD Primary Care Provider [phone] Tong Becker MD Primary Care Provider [phone] Encounter Details Date Type Department Care Team (Late st Contact Info) Description 03/27/2016 Orders Only [facility] CLINCONV ProviderKeon MD [address] [place] [address] Social History Tobacco Use Types Packs/Day Years Used Date Smoking Tobacco: Never Assessed Comments Unknown Sex and Gender Information Value Date Recorded Sex Assigned at Not on file 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
--- OUTSIDE RECORDS SUMMARY | 2025-02-13 17:20 | XMS_ITS | Encounter Summary ---
Author Organization [facility] Address [address] [place] [address] Phone Care Team Providers Care Construction Grip Name Role Phone Shar Rodriguez MD Primary Care Provider [phone] Tong Becker MD Primary Care Provider [phone] Encounter Details Date Type Department Care Team (Late st Contact Info) Description 10/01/2014 Orders Only [facility] CLINCONV Provider, MD Keon [address] [place] [address] Social History Tobacco Use Types Packs/Day Years Used Date Smoking Tobacco: Never Assessed Comments Unknown Sex and Gender Information Value Date Recorded Sex Assigned at Not on file 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
--- OUTSIDE RECORDS SUMMARY | 2025-02-13 17:20 | XMS_ITS | Encounter Summary ---
Author Organization [facility] Address [address] [place] [address] Phone Care Team Providers Care Chisel Trimmer Name Role Phone Shar Rodriguez MD Primary Care Provider [phone] Tong Becker MD Primary Care Provider [phone] Encounter Details Date Type Department Care Team (Late st Contact Info) Description 08/11/2016 Orders Only [facility] CLINCONV ProviderKeon MD [address] [place] [address] Social History Tobacco Use Types Packs/Day Years Used Date Smoking Tobacco: Never Assessed Comments Unknown Sex and Gender Information Value Date Recorded Sex Assigned at Not on file 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
--- OUTSIDE RECORDS SUMMARY | 2025-02-13 17:20 | XMS_ITS | Encounter Summary ---
Author Organization [facility] Address [address] [place] [address] Phone Care Team Providers Care Creel Hand Name Role Phone Shar Rodriguez MD Primary Care Provider [phone] Tong Becker MD Primary Care Provider [phone] Encounter Details Date Type Department Care Team (Late st Contact Info) Description 05/28/2014 Orders Only [facility] CLINCONV Provider, MD Keon [address] [place] [address] Social History Tobacco Use Types Packs/Day Years Used Date Smoking Tobacco: Never Assessed Comments Unknown Sex and Gender Information Value Date Recorded Sex Assigned at Not on file 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
--- OUTSIDE RECORDS SUMMARY | 2025-02-13 17:20 | XMS_ITS | Encounter Summary ---
Author Organization [facility] Address [address] [place] [address] Phone Care Team Providers Care Order Department Supervisor Name Role Phone Shar Rodriguez MD Primary Care Provider [phone] Tong Becker MD Primary Care Provider [phone] Encounter Details Date Type Department Care Team (Late st Contact Info) Description 06/30/2015 Orders Only [facility] CLINCONV ProviderKeon MD [address] [place] [address] Social History Tobacco Use Types Packs/Day Years Used Date Smoking Tobacco: Never Assessed Comments Unknown Sex and Gender Information Value Date Recorded Sex Assigned at Not on file 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
--- OUTSIDE RECORDS SUMMARY | 2025-02-13 17:20 | XMS_ITS | Clinical Summary ---
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 Gender Identity Not on file Sexual Orientation Not on file Obstetrics History Last Filed Vital Signs Vital Sign Reading Time Taken Comments Blood Pressure 132/87 09/11/2024 1:17 PM BODY BUILDER APPRENTICE Pulse 86 09/11/2024 1:17 PM BODY BUILDER APPRENTICE Temperature 36.7 C (98 F) 08/28/2024 7:25 AM BODY BUILDER APPRENTICE Respiratory Rate 17 08/28/2024 12:25 PM BODY BUILDER APPRENTICE Oxygen Saturation 97% 09/11/2024 1:17 PM BODY BUILDER APPRENTICE Inhaled Oxygen Concentration - - Weight 91.3 kg (201 lb 3.2 oz) 09/11/2024 1:17 P M BODY BUILDER APPRENTICE Height 170.2 cm (5' 7) 09/11/2024 1:17 PM BODY BUILDER APPRENTICE Body Mass Index 31.51 09/11/2024 1:17 PM BODY BUILDER APPRENTICE Plan of Treatment Health Maintenance Due Date Last Done Comments Breast Cancer Screening-Mammogram 1976 Colon Cancer Screening-Colonoscopy 1976 Depression Screening 1976 Hepatitis C Screening 1976 DTaP/Tdap/Td Vaccine (1 - Tdap) 1987 Hepatitis B Screening 1994 Regular Well Visit/Exam 18-64 1994 Influenza Vaccine (Season Ended) 2025 08/09/2017, 05/09/2014, 05/18/2013 Pneumococcal vaccine <65 Aged Out No longer eligible based on patient's age to complete this topic [place] [address] [place] [address] [employer] Care Teams Ending Machine Operator Relationship Specialty Start Date End Date Tong Becker MD PCP - General Family Medicine 11/06/20
== END 2025-02-13 17:17 | disposition home or self-care (01) ==
PROVIDERS: PCP Family Medicine; Visit Provider Orthopaedic Surgery
DX: M17.11 Unilateral primary osteoarthritis, right knee (principal); Z98.890 Other specified postprocedural states; Z87.828 Personal history of other (healed) physical injury and trauma
CPT/HCPCS: 73564

== ENCOUNTER 2025-04-16 02:36 | Day surgery (SDC) | payer OTHER, SELFPAY ==
--- NOTE | 2025-04-10 14:21 | PC.NURSE ---
Report to the Outpatient Waiting Room, entrance under the green pavilion located off [facility], at time _1300 on date __[id number] . Planned Procedure Time: ____1500____.? Time changes happen often and if your time is changed the preop area will call you the afternoon before. - You and your visitor will be asked to self-screen and do not enter if you have any COVID symptoms. Please call surgeon if you need to reschedule. - A mask is optional within the hospital at this time. Patients may have clear liquids (water, carbonated beverages, clear teas, apple juice) until 3 hours prior to surgery with a maximum of 20 ounces. STOP AT 1200 (NOON) - No food from midnight until time of surgery and no smoking, or chewing tobacco (or any form of nicotine). No chewing gum, candy or mints. Take only the following medications with a SIP of water on the morning of surgery: PRN XANAX (ONLY IF NEEDED) DO NOT STOP ANY OF YOUR OTHER PRESCRIPTION MEDICATIONS PRIOR TO SURGERY. *Hold all vitamins and supplements for 3 days per anesthesiologist. LAST DAY TO TAKE ON 04-12-2025 Please no make-up, nail scottish, hairspray, perfume, deodorant, or body powder the day of surgery.? No jewelry (including any body piercings) or valuables the day of surgery, leave them at home.? Please take a shower or bath the night before, or the morning of, surgery with an antibacterial soap.? Wear comfortable, loose fitting clothing.? - Jewelry must be removed prior to entering the operating room.? Rings and piercings that are not removed may be cut off. - The hospital will not accept responsibility for valuables.? - Please leave all valuables, including medications, at home the day of surgery. If you are going home after surgery, a licensed armor reconnaissance vehicle driver must drive you home.? - NO public transportation without another adult if you receive anesthesia. - We recommend that an adult stay with you for 24 hours following discharge. - We also recommend that you do not drive, make important decision, drink alcoholic beverages, or take any drugs that were not prescribed by your health care provider for at least 24 hours after your discharge time. Follow any additional instructions given to you from your surgeon. Telephone instructions given to ___PATIENT/MALI and asked if any additional questions and then verbalized understanding. Patient advised to call surgeon office or pre surgery nurse liaison [phone] if any additional questions.
[2025-04-10 14:27] VITALS: BMI 29.0
[2025-04-16] VITALS (9 sets, daily range): BP systolic 98–132; BP diastolic 57–94; PULSE 58–81; RESP 12–16; TEMP 36.1–36.9; O2SAT 97–100
--- OUTSIDE RECORDS SUMMARY | 2025-04-16 02:38 | XMS_ITS | Encounter Summary ---
Author Organization [facility] Address [address] [place] [address] Phone Care Team Providers Care Allergist/Immunologist Name Role Phone Shar Rodriguez MD Primary Care Provider [phone] Tong Becker MD Primary Care Provider [phone] Encounter Details Date Type Department Care Team (Late st Contact Info) Description 12/31/2014 Orders Only [facility] Provider, MD Keon [address] [place] [address] Social History Tobacco Use Types Packs/Day Years Used Date Smoking Tobacco: Never Assessed Comments Unknown Sex and Gender Information Value Date Recorded Sex Assigned at Not on file 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
--- OUTSIDE RECORDS SUMMARY | 2025-04-16 02:38 | XMS_ITS | Encounter Summary ---
Author Organization [facility] Address [address] [place] [address] Phone Care Team Providers Care Road Roller Operator Name Role Phone Shar Rodriguez MD Primary Care Provider [phone] Tong Becker MD Primary Care Provider [phone] Encounter Details Date Type Department Care Team (Late st Contact Info) Description 10/01/2014 Orders Only [facility] Provider, MD Keon [address] [place] [address] Social History Tobacco Use Types Packs/Day Years Used Date Smoking Tobacco: Never Assessed Comments Unknown Sex and Gender Information Value Date Recorded Sex Assigned at Not on file 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
--- OUTSIDE RECORDS SUMMARY | 2025-04-16 02:38 | XMS_ITS | Encounter Summary ---
Author Organization [facility] Address [address] [place] [address] Phone Care Team Providers Care Agricultural Services Director Name Role Phone Shar Rodriguez MD Primary Care Provider [phone] Tong Becker MD Primary Care Provider [phone] Encounter Details Date Type Department Care Team (Late st Contact Info) Description 04/01/2015 Orders Only [facility] ProviderKeon MD [address] [place] [address] Social History Tobacco Use Types Packs/Day Years Used Date Smoking Tobacco: Never Assessed Comments Unknown Sex and Gender Information Value Date Recorded Sex Assigned at Not on file 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
--- OUTSIDE RECORDS SUMMARY | 2025-04-16 02:38 | XMS_ITS | Encounter Summary ---
Author Organization [facility] Address [address] [place] [address] Phone Care Team Providers Care Embroidery Supervisor Name Role Phone Shar Rodriguez MD Primary Care Provider [phone] Tong Becker MD Primary Care Provider [phone] Encounter Details Date Type Department Care Team (Late st Contact Info) Description 06/28/2014 Orders Only [facility] Provider, MD Keon [address] [place] [address] Social History Tobacco Use Types Packs/Day Years Used Date Smoking Tobacco: Never Assessed Comments Unknown Sex and Gender Information Value Date Recorded Sex Assigned at Not on file 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
--- OUTSIDE RECORDS SUMMARY | 2025-04-16 02:38 | XMS_ITS | Clinical Summary ---
Author Organization [facility] Address [address] [place] [address] Care Team Providers Care Coil Connector Name Role Phone Tong Becker MD Primary Care Provider [phone] Allergies Active Allergy Reactions Criticality Noted Date [...] (11/06/2020): Added automatically from request for surgery [id number] Assessment & Plan (03/05/2021 2:22 PM CDT): [...] on file Legal Sex Female 5:10 AM COTTON EXPERT Gender Identity Not on file Sexual Orientation Not on file Obstetrics History Last Filed Vital Signs Vital Sign Reading Time Taken Comments Blood Pressure 132/87 09/11/2024 1:17 PM COTTON EXPERT Pulse 86 09/11/2024 1:17 PM COTTON EXPERT Temperature 36.7 C (98 F) 08/28/2024 7:25 AM COTTON EXPERT Respiratory Rate 17 08/28/2024 12:25 PM COTTON EXPERT Oxygen Saturation 97% 09/11/2024 1:17 PM COTTON EXPERT Inhaled Oxygen Concentration - - Weight 91.3 kg (201 lb 3.2 oz) 09/11/2024 1:17 P M COTTON EXPERT Height 170.2 cm (5' 7) 09/11/2024 1:17 PM COTTON EXPERT Body Mass Index 31.51 09/11/2024 1:17 PM COTTON EXPERT Plan of Treatment Health Maintenance Due Date Last Done Comments Breast Cancer Screening-Mammogram 1976 Colon Cancer Screening-Colonoscopy 1976 Depression Screening 1976 Hepatitis C Screening 1976 DTaP/Tdap/Td Vaccine (1 - Tdap) 1987 Hepatitis B Screening 1994 Regular Well Visit/Exam 18-64 1994 Influenza Vaccine (#1) 2025 8, 05/09/2014, 05/18/2013 Pneumococcal vaccine <65 Aged Out No longer eligible based on patient's age to complete this topic Insurance [employer] O [employer] O Care Teams Coil Connector Relationship Specialty Start Date End Date Tong Becker MD PCP - General Family Medicine 11/06/20
--- OUTSIDE RECORDS SUMMARY | 2025-04-16 02:38 | XMS_ITS | Encounter Summary ---
Author Organization [facility] Address [address] [place] [address] Phone Care Team Providers Care Valving Machine Operator Name Role Phone Shar Rodriguez MD Primary Care Provider [phone] Tong Becker MD Primary Care Provider [phone] Encounter Details Date Type Department Care Team (Late st Contact Info) Description 01/31/2015 Orders Only [facility] ProviderKeon MD [address] [place] [address] Social History Tobacco Use Types Packs/Day Years Used Date Smoking Tobacco: Never Assessed Comments Unknown Sex and Gender Information Value Date Recorded Sex Assigned at Not on file 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
--- OUTSIDE RECORDS SUMMARY | 2025-04-16 02:38 | XMS_ITS | Encounter Summary ---
Author Organization [facility] Address [address] [place] [address] Phone Care Team Providers Care Production Scheduler Name Role Phone Shar Rodriguez MD Primary Care Provider [phone] Tong Becker MD Primary Care Provider [phone] Encounter Details Date Type Department Care Team (Late st Contact Info) Description 10/30/2014 Orders Only [facility] Provider, MD Keon [address] [place] [address] Social History Tobacco Use Types Packs/Day Years Used Date Smoking Tobacco: Never Assessed Comments Unknown Sex and Gender Information Value Date Recorded Sex Assigned at Not on file 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
--- OUTSIDE RECORDS SUMMARY | 2025-04-16 02:38 | XMS_ITS | Encounter Summary ---
Author Organization [facility] Address [address] [place] [address] Phone Care Team Providers Care Oil Well Directional Surveyor Name Role Phone Shar Rodriguez MD Primary Care Provider [phone] Tong Becker MD Primary Care Provider [phone] Encounter Details Date Type Department Care Team (Late st Contact Info) Description 06/30/2015 Orders Only [facility] ProviderKeon MD [address] [place] [address] Social History Tobacco Use Types Packs/Day Years Used Date Smoking Tobacco: Never Assessed Comments Unknown Sex and Gender Information Value Date Recorded Sex Assigned at Not on file 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
--- OUTSIDE RECORDS SUMMARY | 2025-04-16 02:38 | XMS_ITS | Encounter Summary ---
Author Organization [facility] Address [address] [place] [address] Phone Care Team Providers Care Floorhand Name Role Phone Shar Rodriguez MD Primary Care Provider [phone] Tong Becker MD Primary Care Provider [phone] Encounter Details Date Type Department Care Team (Late st Contact Info) Description 03/02/2015 Orders Only [facility] ProviderKeon MD [address] [place] [address] Social History Tobacco Use Types Packs/Day Years Used Date Smoking Tobacco: Never Assessed Comments Unknown Sex and Gender Information Value Date Recorded Sex Assigned at Not on file 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
--- OUTSIDE RECORDS SUMMARY | 2025-04-16 02:38 | XMS_ITS | Encounter Summary ---
Author Organization [facility] Address [address] [place] [address] Phone Care Team Providers Care Creative Art Therapist Name Role Phone Shar Rodriguez MD Primary Care Provider [phone] Tong Becker MD Primary Care Provider [phone] Encounter Details Date Type Department Care Team (Late st Contact Info) Description 08/14/2015 Orders Only [facility] ProviderKeon MD [address] [place] [address] Social History Tobacco Use Types Packs/Day Years Used Date Smoking Tobacco: Never Assessed Comments Unknown Sex and Gender Information Value Date Recorded Sex Assigned at Not on file 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
--- OUTSIDE RECORDS SUMMARY | 2025-04-16 02:39 | XMS_ITS | Encounter Summary ---
Author Organization [facility] Address [address] [place] [address] Phone Care Team Providers Care Ergonomics Technician Name Role Phone Shar Rodriguez MD Primary Care Provider [phone] Tong Becker MD Primary Care Provider [phone] Encounter Details Date Type Department Care Team (Late st Contact Info) Description 07/29/2014 Orders Only [facility] Provider, MD Keon [address] [place] [address] Social History Tobacco Use Types Packs/Day Years Used Date Smoking Tobacco: Never Assessed Comments Unknown Sex and Gender Information Value Date Recorded Sex Assigned at Not on file 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
--- OUTSIDE RECORDS SUMMARY | 2025-04-16 02:39 | XMS_ITS | Encounter Summary ---
Author Organization [facility] Address [address] [place] [address] Phone Care Team Providers Care Government Affairs Specialist Name Role Phone Shar Rodriguez MD Primary Care Provider [phone] Tong Becker MD Primary Care Provider [phone] Encounter Details Date Type Department Care Team (Late st Contact Info) Description 08/11/2016 Orders Only [facility] ProviderKeon MD [address] [place] [address] Social History Tobacco Use Types Packs/Day Years Used Date Smoking Tobacco: Never Assessed Comments Unknown Sex and Gender Information Value Date Recorded Sex Assigned at Not on file 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
--- OUTSIDE RECORDS SUMMARY | 2025-04-16 02:39 | XMS_ITS | Encounter Summary ---
Author Organization [facility] Address [address] [place] [address] Phone Care Team Providers Care Motorbike Courier Name Role Phone Shar Rodriguez MD Primary Care Provider [phone] Tong Becker MD Primary Care Provider [phone] Encounter Details Date Type Department Care Team (Late st Contact Info) Description 08/29/2014 Orders Only [facility] Provider, MD Keon [address] [place] [address] Social History Tobacco Use Types Packs/Day Years Used Date Smoking Tobacco: Never Assessed Comments Unknown Sex and Gender Information Value Date Recorded Sex Assigned at Not on file 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
--- OUTSIDE RECORDS SUMMARY | 2025-04-16 02:39 | XMS_ITS | Encounter Summary ---
Author Organization [facility] Address [address] [place] [address] Phone Care Team Providers Care Hand Baseball Sewer Name Role Phone Shar Rodriguez MD Primary Care Provider [phone] Tong Becker MD Primary Care Provider [phone] Encounter Details Date Type Department Care Team (Late st Contact Info) Description 11/09/2016 Orders Only [facility] ProviderKeon MD [address] [place] [address] Social History Tobacco Use Types Packs/Day Years Used Date Smoking Tobacco: Never Assessed Comments Unknown Sex and Gender Information Value Date Recorded Sex Assigned at Not on file Legal Sex Female 5:10 AM INDUSTRIAL REGISTERED NURSE Gender Identity Not on file Sexual Orientation [...] on filedocumented in this encounter Care Teams Hand Baseball Sewer Relationship Specialty Start Date End Date Shar Rodriguez MD [address] [place] [address] PCP - General 12/21/16 11/05/20 Tong Becker MD [address] [place] [address] PCP - General Family Medicine 11/06/20 documented as of this encounter
--- OUTSIDE RECORDS SUMMARY | 2025-04-16 02:39 | XMS_ITS | Encounter Summary ---
Author Organization [facility] Address [address] [place] [address] Phone Care Team Providers Care Manager Of Administration Name Role Phone Shar Rodriguez MD Primary Care Provider [phone] Tong Becker MD Primary Care Provider [phone] Encounter Details Date Type Department Care Team (Late st Contact Info) Description 03/27/2016 Orders Only [facility] ProviderKeon MD [address] [place] [address] Social History Tobacco Use Types Packs/Day Years Used Date Smoking Tobacco: Never Assessed Comments Unknown Sex and Gender Information Value Date Recorded Sex Assigned at Not on file 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
--- OUTSIDE RECORDS SUMMARY | 2025-04-16 02:39 | XMS_ITS | Encounter Summary ---
Author Organization [facility] Address [address] [place] [address] Phone Care Team Providers Care Real Estate Account Executive Name Role Phone Shar Rodriguez MD Primary Care Provider [phone] Tong Becker MD Primary Care Provider [phone] Encounter Details Date Type Department Care Team (Late st Contact Info) Description 05/10/2016 Orders Only [facility] ProviderKeon MD [address] [place] [address] Social History Tobacco Use Types Packs/Day Years Used Date Smoking Tobacco: Never Assessed Comments Unknown Sex and Gender Information Value Date Recorded Sex Assigned at Not on file 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
--- OUTSIDE RECORDS SUMMARY | 2025-04-16 02:39 | XMS_ITS | Encounter Summary ---
Author Organization [facility] Address [address] [place] [address] Phone Care Team Providers Care Inweaver Name Role Phone Shar Rodriguez MD Primary Care Provider [phone] Tong Becker MD Primary Care Provider [phone] Encounter Details Date Type Department Care Team (Late st Contact Info) Description 09/29/2014 Orders Only [facility] Provider, MD Keon [address] [place] [address] Social History Tobacco Use Types Packs/Day Years Used Date Smoking Tobacco: Never Assessed Comments Unknown Sex and Gender Information Value Date Recorded Sex Assigned at Not on file Legal Sex Female 5:10 AM FUR REPAIR INSPECTOR Gender Identity Not on file Sexual [...] on filedocumented in this encounter Care Teams Inweaver Relationship Specialty Start Date End Date Shar Rodriguez MD [address] [place] [address] PCP - General 12/21/16 11/05/20 Tong Becker MD [address] [facility] [address] [facility] [address] [place] [address] PCP - General Family Medicine 11/06/20 documented as of this encounter
--- OUTSIDE RECORDS SUMMARY | 2025-04-16 02:39 | XMS_ITS | Encounter Summary ---
Author Organization [facility] Address [address] [place] [address] Phone Care Team Providers Care Take Down Inspector Name Role Phone Shar Rodriguez MD Primary Care Provider [phone] Tong Becker MD Primary Care Provider [phone] Encounter Details Date Type Department Care Team (Late st Contact Info) Description 05/09/2014 Orders Only [facility] Provider, MD Keon [address] [place] [address] Social History Tobacco Use Types Packs/Day Years Used Date Smoking Tobacco: Never Assessed Comments Unknown Sex and Gender Information Value Date Recorded Sex Assigned at Not on file Legal Sex Female 5:10 AM ONION TIER Gender Identity Not on file Sexual Orientation [...] on filedocumented in this encounter Care Teams Take Down Inspector Relationship Specialty Start Date End Date Shar Rodriguez MD [address] [place] [address] PCP - General 12/21/16 11/05/20 Tong Becker MD [address] [facility] [address] [facility] [address] [place] [address] PCP - General Family Medicine 11/06/20 documented as of this encounter
--- OUTSIDE RECORDS SUMMARY | 2025-04-16 02:39 | XMS_ITS | Encounter Summary ---
Author Organization [facility] Address [address] [place] [address] Phone Care Team Providers Care Woodyard Crane Operator Name Role Phone Shar Rodriguez MD Primary Care Provider [phone] Tong Becker MD Primary Care Provider [phone] Encounter Details Date Type Department Care Team (Late st Contact Info) Description 05/28/2014 Orders Only [facility] Provider, MD Keon [address] [place] [address] Social History Tobacco Use Types Packs/Day Years Used Date Smoking Tobacco: Never Assessed Comments Unknown Sex and Gender Information Value Date Recorded Sex Assigned at Not on file 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
--- OUTSIDE RECORDS SUMMARY | 2025-04-16 02:39 | XMS_ITS | Encounter Summary ---
Author Organization [facility] Address [address] [place] [address] Phone Care Team Providers Care Rn Outpatient Surgery Name Role Phone Shar Rodriguez MD Primary Care Provider [phone] Tong Becker MD Primary Care Provider [phone] Encounter Details Date Type Department Care Team (Late st Contact Info) Description 09/27/2016 Orders Only [facility] CLINCONV ProviderKeon MD [address] [place] [address] Social History Tobacco Use Types Packs/Day Years Used Date Smoking Tobacco: Never Assessed Comments Unknown Sex and Gender Information Value Date Recorded Sex Assigned at Not on file 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
--- OUTSIDE RECORDS SUMMARY | 2025-04-16 02:39 | XMS_ITS | Encounter Summary ---
Author Organization [facility] Address [address] [place] [address] Phone Care Team Providers Care Control Clerk Repairs Name Role Phone Shar Rodriguez MD Primary Care Provider [phone] Tong Becker MD Primary Care Provider [phone] Encounter Details Date Type Department Care Team (Late st Contact Info) Description 05/24/2017 Orders Only [facility] Provider, MD Keon [address] [place] [address] Social History Tobacco Use Types Packs/Day Years Used Date Smoking Tobacco: Never Comments Unknown Sex and Gender Information Value Date Recorded Sex Assigned at Not on file Legal Sex Female 5:10 AM ELECTRONIC HEALTH RECORDS SPECIALIST Gender Identity Not on file Sexual [...] on filedocumented in this encounter Care Teams Control Clerk Repairs Relationship Specialty Start Date End Date Shar Rodriguez MD [address] [place] [address] PCP - General 12/21/16 11/05/20 Tong Becker MD [address] [facility] [address] [place] [address] PCP - General Family Medicine 11/06/20 documented as of this encounter
--- OUTSIDE RECORDS SUMMARY | 2025-04-16 02:39 | XMS_ITS | Encounter Summary ---
Author Organization [facility] Address [address] [place] [address] Phone Care Team Providers Care Private Security Guard Name Role Phone Shar Rodriguez MD Primary Care Provider [phone] Tong Becker MD Primary Care Provider [phone] Encounter Details Date Type Department Care Team (Late st Contact Info) Description 09/22/2016 Orders Only [facility] ProviderKeon MD [address] [place] [address] Social History Tobacco Use Types Packs/Day Years Used Date Smoking Tobacco: Never Assessed Comments Unknown Sex and Gender Information Value Date Recorded Sex Assigned at Not on file 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
[2025-04-16] MEDS: KETOROLAC 15 MG/ML VIAL (*BKC) IV PUSH (14:00)
[2025-04-16] MEDS: ACETAMINOPHEN 500 MG TABLET 1000 MG PO (14:00)
[2025-04-16] MEDS: LACTATED RINGERS 1,000 ML 30 ML IV CONT ×2 (14:00→16:34)
--- NOTE | 2025-04-16 14:54 | WPDANESEPPF ---
Anes - Initial Pre Proc Eval Procedure: Operation Date: 04/16/25 15:00 Proposed Procedures p Right Leg Lipoma Excision - José Miguel Mansfield MD Date/Time: 04/16/25 14:54 Surgeon: José Miguel Mansfield MD Pre Op Diagnosis: right leg lipoma Patient Data Age: 49 Gender: F Height: 1.7 m Weight: 88.6 kg Last Vital Signs Temp 36.9 C 04/16/25 14:00 Pulse 80 04/16/25 14:00 Resp 16 04/16/25 14:00 BP 132/79 04/16/25 14:00 Pulse Ox 97 04/16/25 14:00 O2 Del Method Room Air 04/16/25 14:00 Allergies Allergy/AdvReac Type Severity Reaction Status Date / Time amoxicillin Allergy Mild Rash Verified 04/16/25 14:32 vancomycin Allergy Mild Rash Verified 04/16/25 14:32 bupropion Allergy Unknown SEIZURE Verified 04/16/25 14:32 latex Allergy Unknown RASH, Verified 04/16/25 14:32 ITCHING Penicillins Allergy Unknown RASH Verified 04/16/25 14:32 propoxyphene AdvReac Mild NAUSEA/VOMI Verified 04/16/25 14:32 TING erythromycin base AdvReac Unknown N/V;DIZZINE Verified 04/16/25 14:32 SS Home Medications ?Medication ?Instructions ?Recorded ?Confirmed ?Type multivitamin 1 tablet PO DAILY 09/19/19 04/11/25 History alprazolam 0.5 mg tablet 0.5 mg PO BID PRN anxiety 04/01/22 04/11/25 History cholecalciferol (vitamin D3) 125 125 mcg PO DAILY 04/01/22 04/11/25 History mcg (5,000 unit) tablet (Vitamin D3) hydrocodone 5 mg-acetaminophen 325 1 - 2 tablet PO Q4-6H PRN pain 7 04/16/25 Rx mg tablet days #30 tabs Patient hx anesthesia problems: none Family hx anesthesia problems: none Results Review: All pre-operative results and documents have been reviewed as part of the pre-operative evaluation. [facility] Past Medical History Medical History Endometriosis Depression BMI 32.0-32.9,adult Pelvic pain Sore throat Fatigue Fever Colon cancer screening Gastritis Dysphagia Eosinophilic esophagitis Medial meniscus tear Acute pain of left knee Neck pain on right side BMI 34.0-34.9,adult BMI 33.0-33.9,adult Weight gain Adult BMI 31.0-31.9 kg/sq m Surgical History Surgical History Status post arthroscopic partial medial meniscectomy of right knee (~08/08/24) H/O: hysterectomy H/O knee surgery History of loop recorder History of removal of ovarian cyst Hx of tubal ligation History of gastric surgery Hx of dilation and curettage Family History Family History Father Family history of migraine headaches Hypertension Malignant neoplasm of prostate Sibling Hypertension Suicide Mother No problems noted. Other Diabetes mellitus Family history of cardiovascular disease Social History Social History Social History: Recently lost brother to suicide. Smoking status: Never smoker Second hand tobacco smoke exposure: Yes (as a child) Alcohol intake: current Drinks per week: 0 Alcohol use details: less than twice a year/socially. Substance use: never Substance use type: does not use Do You Feel Safe in your Home?: Yes Lack of Transportation: No Lack of Food: Never True Current Housing: I Have Housing Concerned About Future Housing: Decline to Answer Difficulty Paying Gas/Electric Bills: Decline to Answer Difficulty Paying for Meds: Decline to Answer Currently Unemployed: Decline to Answer Education: Decline to Answer Difficulty w/ Childcare or Family Care: Decline to Answer Living arrangements: with family Occupation/Education: occupation Additional occupation/education comments: [employer] Gender identity (if verbalized by the patient): Female Sexual Orientation (if Verbalized by the Patient): Straight or Heterosexual Spiritual care concerns: No Anes - Eval Final PreProcedure Day of Procedure 04/16/25 14:54 Patient weight: obese Heart: regular rate and rhythm Lungs: clear to auscultation Airway: Mallampati scale class II Neurological: alert and oriented Last oral intake: >/= 8 hours ASA classification: II Emergent: no Anesthetic plan: proceed Anesthesia type and monitoring: general LMA and standard monitoring Results Review: All pre-operative results and documents have been reviewed as part of the pre-operative evaluation. Informed Consent: The patient's anesthetic plan and its attendant risks and benefits were discussed with the patient/family/POA. Questions were solicited and answers provided to the satisfaction of the patient/family/POA.
[2025-04-16] MEDS: SCOPOLAMINE 1 MG PATCH 1 PATCH TRANSDERM (15:03)
--- NOTE | 2025-04-16 15:25 | WPDHPUPDATE1 ---
History and Physical Update Update Date/Time: 04/16/25 15:25 History and Physical has been reviewed, including an updated exam of the patient. There are NO changes in the patient's condition. Risks, benefits, and alternatives have been discussed and questions answered. Patient agrees to proceed with procedure.
[2025-04-16] MEDS: ceFAZolin 2 GM in SODIUM CHLORIDE 0.9% IV 50 ML 100 ML IVPB (15:28)
--- NOTE | 2025-04-16 15:55 | S_PTH ---
PATIENT: Nat Riley LOC: [facility] U#:[id number] AGE/SX: 49/F ROOM: RE04/16/[address]: José Miguel Mansfield MD : 1975 BED: DIS: 04/16/2025 SPEC #: [id number] RECD: 04/17/25 08:09 STATUS: ROX REQ #: [id number] JESSICA: 04/16/25 15:[address]: José Miguel Mansfield DEPT: [facility] Surgical RECD BY: Yunier Aguayo ENTERED: 04/17/25 08:10 SP TYPE: Surgical OTHR DR: Tong Becker MD Tissues: A - Lipoma Procedures: Hematoxylin and Eosin Stain Gross and Microscopic Level 3
--- NOTE | 2025-04-16 17:27 | P.OP_ITS ---
Procedure Note - Detailed Date of Procedure 04/16/25 Pre-op Diagnosis Right leg lipoma Post-op Diagnosis Same Procedure Performed Lipoma excision right leg Surgeon José Miguel Mansfield MD Fiber Optic Assembler Brenda Daugherty PA-C Anesthesia General Indications Recurrent lipoma with significant serous swelling. Findings Encapsulated scar and lipoma tissue excised. Approximately 3 cm x 2 cm. Scar revision performed. Description of Procedure Preoperative antibiotics were given. A general anesthetic was administered. The leg was prepped and draped in usual sterile fashion. The limb was exsan guinated and the tourniquet inflated to 300 mmHg. The previous incision was ellipsed at the proximal medial aspect of the tibia. Dissection was brought down to the previous scar. There appeared to be a significant area of lipomatous fatty tissue. This area was excised. space was carefully closed. The defect was closed with interrupted 2-0 Monocryl suture, 3-0 Monocryl suture, and running 4-0 Monocryl suture in the skin. The tissues closed nicely without undue tension. Steri-Strips applied with a sterile bulky dressing with a light compression and a bolster. The patient was extubated and brought to recovery room in stable condition. There were no complications. Estimated Blood Loss 1 Drains No Packing No Pathology Yes Complications No immediate complications Condition Stable Disposition PACU [facility] Billing Surgery - Charge Forward: Surgery Billing
[2025-04-16] MEDS: oxyCODONE HCL (*CRX) 5 MG TAB IR PO (17:40)
== END 2025-04-16 18:55 | disposition home or self-care (01) ==
PROVIDERS: PCP Family Medicine; Visit Provider Orthopaedic Surgery
PROC: (CPT 27632; principal; 2025-04-16 15:00)
DX: D17.23 Benign lipomatous neoplasm of skin and subcutaneous tissue of right leg (principal); E66.9 Obesity, unspecified; Z68.30 Body mass index [BMI] 30.0-30.9, adult; L30.8 Other specified dermatitis
CPT/HCPCS: 27632; 88304; J0690; A9270; J1100; J1200; J1885; J2250; J2405; J2704; J3010; J7120

== ENCOUNTER 2025-07-03 08:30 | Outpatient (CLI) | payer OTHER, SELFPAY ==
--- NOTE | ~2025-07-03 | MM_ITS ---
EXAMINATION: MM screening cindy BI w subhash HISTORY: Screening TECHNIQUE: Craniocaudal and mediolateral oblique 3-D tomosynthesis images were obtained and synthetic 2-D images were generated. CAD analysis was submitted and interpreted. COMPARISON: Comparison to multiple prior studies sequentially, with oldest reviewed study dated 09/11/2019. BREAST PARENCHYMAL COMPOSITION: Not dense: There are scattered areas of fibroglandular density. FINDINGS: There is no evidence of suspicious mass, calcification, or architectural distortion to suggest malignancy in either breast. There has been no suspicious interval change. IMPRESSION: 1. No mammographic evidence of malignancy. 2. Recommend routine screening mammography in one year. BI-RADS Category 1: Negative Reviewed, dictated and finalized at location O. ICAL STATISTICAL PROGRAMMER
--- OUTSIDE RECORDS SUMMARY | 2025-07-03 08:43 | XMS_ITS | Encounter Summary ---
Author Organization [facility] Address [address] [place] [address] Phone Care Team Providers Care Excellence Specialist Name Role Phone Shar Rodriguez MD Primary Care Provider [phone] Tong Becker MD Primary Care Provider [phone] Encounter Details Date Type Department Care Team (Late st Contact Info) Description 12/31/2014 Orders Only [facility] Provider, MD Keon [address] [place] [address] Social History Tobacco Use Types Packs/Day Years Used Date Smoking Tobacco: Never Assessed Comments Unknown Sex and Gender Information Value Date Recorded Sex Assigned at Not on file Legal Sex Female 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
--- OUTSIDE RECORDS SUMMARY | 2025-07-03 08:43 | XMS_ITS | Encounter Summary ---
Author Organization [facility] Address [address] [place] [address] Phone Care Team Providers Care Funeral Director And Embalmer Name Role Phone Shar Rodriguez MD Primary Care Provider [phone] Tong Becker MD Primary Care Provider [phone] Encounter Details Date Type Department Care Team (Late st Contact Info) Description 10/01/2014 Orders Only [facility] Provider, MD Keon [address] [place] [address] Social History Tobacco Use Types Packs/Day Years Used Date Smoking Tobacco: Never Assessed Comments Unknown Sex and Gender Information Value Date Recorded Sex Assigned at Not on file 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
--- OUTSIDE RECORDS SUMMARY | 2025-07-03 08:43 | XMS_ITS | Encounter Summary ---
Author Organization [facility] Address [address] [place] [address] Phone Care Team Providers Care Life Enrichment Assistant Name Role Phone Shar Rodriguez MD Primary Care Provider [phone] Tong Becker MD Primary Care Provider [phone] Encounter Details Date Type Department Care Team (Late st Contact Info) Description 10/30/2014 Orders Only [facility] Provider, MD Keon [address] [place] [address] Social History Tobacco Use Types Packs/Day Years Used Date Smoking Tobacco: Never Assessed Comments Unknown Sex and Gender Information Value Date Recorded Sex Assigned at Not on file Legal Sex Female 5:10 AM PHOTOGRAPHIC REPRODUCTION TECHNICIAN Gender Identity Not on file Sexual [...] on filedocumented in this encounter Care Teams Life Enrichment Assistant Relationship Specialty Start Date End Date Shar Rodriguez MD PCP - General 12/21/16 11/05/20 Tong Becker MD PCP - General Family Medicine 11/06/20 documented as of this encounter
--- OUTSIDE RECORDS SUMMARY | 2025-07-03 08:43 | XMS_ITS | Encounter Summary ---
Author Organization [facility] Address [address] [place] [address] Phone Care Team Providers Care Custom Home Installer Name Role Phone Shar Rodriguez MD Primary Care Provider [phone] Tong Becker MD Primary Care Provider [phone] Encounter Details Date Type Department Care Team (Late st Contact Info) Description 03/02/2015 Orders Only [facility] ProviderKeon MD [address] [place] [address] Social History Tobacco Use Types Packs/Day Years Used Date Smoking Tobacco: Never Assessed Comments Unknown Sex and Gender Information Value Date Recorded Sex Assigned at Not on file 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 us Historical Provider [facility] KEV RODRIGUEZ Final Result documented in this encounter Visit Diagnoses Not on filedocumented in this encounter Care Teams Custom Home Installer Relationship Specialty Start Date End Date Shar Rodriguez MD PCP - General 12/21/16 11/05/20 Tong Becker MD PCP - General Family Medicine 11/06/20 documented as of this encounter
--- OUTSIDE RECORDS SUMMARY | 2025-07-03 08:43 | XMS_ITS | Encounter Summary ---
Author Organization [facility] Address [address] [place] [address] Phone Care Team Providers Care Tele Grout Sewer Line Repairer Name Role Phone Shar Rodriguez MD Primary Care Provider [phone] Tong Becker MD Primary Care Provider [phone] Encounter Details Date Type Department Care Team (Late st Contact Info) Description 08/14/2015 Orders Only [facility]IN[facility] ProviderKeon MD [address] [place] [address] Social History Tobacco Use Types Packs/Day Years Used Date Smoking Tobacco: Never Assessed Comments Unknown Sex and Gender Information Value Date Recorded Sex Assigned at Not on file Legal Sex Female 5:10 AM BRICKLAYER TENDER Gender Identity Not on file Sexual [...] Narrative 08/14/2015 Ordered by an unspecified provider. us Historical Provider [facility] KEV RODRIGUEZ Final Result documented in this encounter Visit Diagnoses Not on filedocumented in this encounter Care Teams Tele Grout Sewer Line Repairer Relationship Specialty Start Date End Date Shar Rodriguez MD PCP - General 12/21/16 11/05/20 Tong Becker MD PCP - General Family Medicine 11/06/20 documented as of this encounter
--- OUTSIDE RECORDS SUMMARY | 2025-07-03 08:43 | XMS_ITS | Clinical Summary ---
Author Organization [facility] Address [address] [place] [address] Care Team Providers Care Vending Technician Name Role Phone Tong Becker MD Primary Care Provider [phone] Allergies Active Allergy Reactions Criticality Noted Date [...] (11/06/2020): Added automatically from request for surgery [id number] Assessment & Plan (03/05/2021 2:22 PM CDT): [...] on file Legal Sex Female 5:10 AM CUSTOMER BUSINESS MANAGER Gender Identity Not on file Sexual Orientation Not on file Last Filed Vital Signs Vital Sign Reading Time Taken Comments Blood Pressure 132/87 09/11/2024 1:17 PM CUSTOMER BUSINESS MANAGER Pulse 86 09/11/2024 1:17 PM CUSTOMER BUSINESS MANAGER Temperature 36.7 C (98 F) 08/28/2024 7:25 AM CUSTOMER BUSINESS MANAGER Respiratory Rate 17 08/28/2024 12:25 PM CUSTOMER BUSINESS MANAGER Oxygen Saturation 97% 09/11/2024 1:17 PM CUSTOMER BUSINESS MANAGER Inhaled Oxygen Concentration - - Weight 91.3 kg (201 lb 3.2 oz) 09/11/2024 1:17 P M CUSTOMER BUSINESS MANAGER Height 170.2 cm (5' 7) 09/11/2024 1:17 PM CUSTOMER BUSINESS MANAGER Body Mass Index 31.51 09/11/2024 1:17 PM CUSTOMER BUSINESS MANAGER Plan of Treatment Health Maintenance Due Date [...] patient's age to complete this topic Insurance Spindle O Spindle O Care Teams Vending Technician Relationship Specialty Start Date End Date Tong Becker MD PCP - General Family Medicine 11/06/20
--- OUTSIDE RECORDS SUMMARY | 2025-07-03 08:43 | XMS_ITS | Encounter Summary ---
Author Organization [facility] Address [address] [place] [address] Phone Care Team Providers Care Music Therapist Name Role Phone Shar Rodriguez MD Primary Care Provider [phone] Tong Becker MD Primary Care Provider [phone] Encounter Details Date Type Department Care Team (Late st Contact Info) Description 01/31/2015 Orders Only [facility] ProviderKeon MD [address] [place] [address] Social History Tobacco Use Types Packs/Day Years Used Date Smoking Tobacco: Never Assessed Comments Unknown Sex and Gender Information Value Date Recorded Sex Assigned at Not on file Legal Sex Female 5:10 AM DOPE EDGER Gender Identity Not on file Sexual Orientation [...] Narrative 01/31/2015 Ordered by an unspecified provider. us Historical Provider [facility] KEV RODRIGUEZ Final Result documented in this encounter Visit Diagnoses Not on filedocumented in this encounter Care Teams Music Therapist Relationship Specialty Start Date End Date Shar Rodriguez MD PCP - General 12/21/16 11/05/20 Tong Becker MD PCP - General Family Medicine 11/06/20 documented as of this encounter
--- OUTSIDE RECORDS SUMMARY | 2025-07-03 08:43 | XMS_ITS | Encounter Summary ---
Author Organization [facility] Address [address] [place] [address] Phone Care Team Providers Care Mine Captain Name Role Phone Shar Rodriguez MD Primary Care Provider [phone] Tong Becker MD Primary Care Provider [phone] Encounter Details Date Type Department Care Team (Late st Contact Info) Description 06/30/2015 Orders Only [facility] ProviderKeon MD [address] [place] [address] Social History Tobacco Use Types Packs/Day Years Used Date Smoking Tobacco: Never Assessed Comments Unknown Sex and Gender Information Value Date Recorded Sex Assigned at Not on file Legal Sex Female 5:10 AM TITLE ABSTRACTOR Gender Identity Not on file Sexual Orientation [...] Narrative 06/30/2015 Ordered by an unspecified provider. us Historical Provider [facility] KEV RODRIGUEZ Final Result documented in this encounter Visit Diagnoses Not on filedocumented in this encounter Care Teams Mine Captain Relationship Specialty Start Date End Date Shar Rodriguez MD PCP - General 12/21/16 11/05/20 Tong Becker MD PCP - General Family Medicine 11/06/20 documented as of this encounter
--- OUTSIDE RECORDS SUMMARY | 2025-07-03 08:43 | XMS_ITS | Encounter Summary ---
Author Organization [facility] Address [address] [place] [address] Phone Care Team Providers Care Business Process Architect Name Role Phone Shar Rodriguez MD Primary Care Provider [phone] Tong Becker MD Primary Care Provider [phone] Encounter Details Date Type Department Care Team (Late st Contact Info) Description 04/01/2015 Orders Only [facility] ProviderKeon MD [address] [place] [address] Social History Tobacco Use Types Packs/Day Years Used Date Smoking Tobacco: Never Assessed Comments Unknown Sex and Gender Information Value Date Recorded Sex Assigned at Not on file Legal Sex Female 5:10 AM REFUELER Gender Identity Not on file Sexual Orientation [...] Narrative 04/01/2015 Ordered by an unspecified provider. us Historical Provider [facility] KEV RODRIGUEZ Final Result documented in this encounter Visit Diagnoses Not on filedocumented in this encounter Care Teams Business Process Architect Relationship Specialty Start Date End Date Shar Rodriguez MD PCP - General 12/21/16 11/05/20 Tong Becker MD PCP - General Family Medicine 11/06/20 documented as of this encounter
--- OUTSIDE RECORDS SUMMARY | 2025-07-03 08:44 | XMS_ITS | Encounter Summary ---
Author Organization [facility] Address [address] [place] [address] Phone Care Team Providers Care Greenskeeper Head Name Role Phone Shar Rodriguez MD Primary Care Provider [phone] Tong Becker MD Primary Care Provider [phone] Encounter Details Date Type Department Care Team (Late st Contact Info) Description 05/28/2014 Orders Only [facility] Provider, MD Keon [address] [place] [address] Social History Tobacco Use Types Packs/Day Years Used Date Smoking Tobacco: Never Assessed Comments Unknown Sex and Gender Information Value Date Recorded Sex Assigned at Not on file Legal Sex Female 5:10 AM DIRECTOR OF SAFETY Gender Identity Not on file Sexual Orientation [...] on filedocumented in this encounter Care Teams Greenskeeper Head Relationship Specialty Start Date End Date Shar Rodriguez MD PCP - General 12/21/16 11/05/20 Tong Becker MD PCP - General Family Medicine 11/06/20 documented as of this encounter
--- OUTSIDE RECORDS SUMMARY | 2025-07-03 08:44 | XMS_ITS | Encounter Summary ---
Author Organization [facility] Address [address] [place] [address] Phone Care Team Providers Care Mechanical Product Engineer Name Role Phone Shar Rodriguez MD Primary Care Provider [phone] Tong Becker MD Primary Care Provider [phone] Encounter Details Date Type Department Care Team (Late st Contact Info) Description 05/09/2014 Orders Only [facility] Provider, MD Keon [address] [place] [address] Social History Tobacco Use Types Packs/Day Years Used Date Smoking Tobacco: Never Assessed Comments Unknown Sex and Gender Information Value Date Recorded Sex Assigned at Not on file Legal Sex Female 5:10 AM CUSTOMS BROKERAGE AGENT Gender Identity Not on file Sexual Orientation Not on file documented as of this encounter Functional Status documented as of this encounter Plan of [...] on filedocumented in this encounter Care Teams Mechanical Product Engineer Relationship Specialty Start Date End Date Shar Rodriguez MD PCP - General 12/21/16 11/05/20 Tong Becker MD PCP - General Family Medicine 11/06/20 documented as of this encounter
--- OUTSIDE RECORDS SUMMARY | 2025-07-03 08:44 | XMS_ITS | Encounter Summary ---
Author Organization [facility] Address [address] [place] [address] Phone Care Team Providers Care Airplane Pilot Name Role Phone Shar Rodriguez MD Primary Care Provider [phone] Tong Becker MD Primary Care Provider [phone] Encounter Details Date Type Department Care Team (Late st Contact Info) Description 03/27/2016 Orders Only [facility] ProviderKeon MD [address] [place] [address] Social History Tobacco Use Types Packs/Day Years Used Date Smoking Tobacco: Never Assessed Comments Unknown Sex and Gender Information Value Date Recorded Sex Assigned at Not on file Legal Sex Female 5:10 AM RESOLUTION MANAGER Gender Identity Not on file Sexual [...] Narrative 03/27/2016 Ordered by an unspecified provider. us Historical Provider CV CARDIAC SERVICES KEV RODRIGUEZ Final Result documented in this encounter Visit Diagnoses Not on filedocumented in this encounter Care Teams Airplane Pilot Relationship Specialty Start Date End Date Shar Rodriguez MD PCP - General 12/21/16 11/05/20 Tong Becker MD PCP - General Family Medicine 11/06/20 documented as of this encounter
--- OUTSIDE RECORDS SUMMARY | 2025-07-03 08:44 | XMS_ITS | Encounter Summary ---
Author Organization [facility] Address [address] [place] [address] Phone Care Team Providers Care Key Account Executive Name Role Phone Shar Rodriguez MD Primary Care Provider [phone] Tong Becker MD Primary Care Provider [phone] Encounter Details Date Type Department Care Team (Late st Contact Info) Description 07/29/2014 Orders Only [facility] Provider, MD Keon [address] [place] [address] Social History Tobacco Use Types Packs/Day Years Used Date Smoking Tobacco: Never Assessed Comments Unknown Sex and Gender Information Value Date Recorded Sex Assigned at Not on file Legal Sex Female 5:10 AM MANAGER TALENT MANAGEMENT Gender Identity Not on file Sexual Orientation [...] on filedocumented in this encounter Care Teams Key Account Executive Relationship Specialty Start Date End Date Shar Rodriguez MD PCP - General 12/21/16 11/05/20 Tong Becker MD PCP - General Family Medicine 11/06/20 documented as of this encounter
--- OUTSIDE RECORDS SUMMARY | 2025-07-03 08:44 | XMS_ITS | Encounter Summary ---
Author Organization [facility] Address [address] [place] [address] Phone Care Team Providers Care Hearth Feeder Name Role Phone Shar Rodriguez MD Primary Care Provider [phone] Tong Becker MD Primary Care Provider [phone] Encounter Details Date Type Department Care Team (Late st Contact Info) Description 06/28/2014 Orders Only [facility] Provider, MD Keon [address] [place] [address] Social History Tobacco Use Types Packs/Day Years Used Date Smoking Tobacco: Never Assessed Comments Unknown Sex and Gender Information Value Date Recorded Sex Assigned at Not on file Legal Sex Female 5:10 AM BRASS BURNISHER Gender Identity Not on file Sexual Orientation [...] on filedocumented in this encounter Care Teams Hearth Feeder Relationship Specialty Start Date End Date Shar Rodriguez MD PCP - General 12/21/16 11/05/20 Tong Becker MD PCP - General Family Medicine 11/06/20 documented as of this encounter
--- OUTSIDE RECORDS SUMMARY | 2025-07-03 08:44 | XMS_ITS | Encounter Summary ---
Author Organization [facility] Address [address] [place] [address] Phone Care Team Providers Care Bowling Ball Mold Assembler Name Role Phone Shar Rodriguez MD Primary Care Provider [phone] Tong Becker MD Primary Care Provider [phone] Encounter Details Date Type Department Care Team (Late st Contact Info) Description 09/29/2014 Orders Only [facility] Provider, MD eKon [address] [place] [address] Social History Tobacco Use Types Packs/Day Years Used Date Smoking Tobacco: Never Assessed Comments Unknown Sex and Gender Information Value Date Recorded Sex Assigned at Not on file Legal Sex Female 5:10 AM DINKEY OPERATOR Gender Identity Not on file Sexual [...] on filedocumented in this encounter Care Teams Bowling Ball Mold Assembler Relationship Specialty Start Date End Date Shar Rodriguez MD PCP - General 12/21/16 11/05/20 Tong Becker MD PCP - General Family Medicine 11/06/20 documented as of this encounter
--- OUTSIDE RECORDS SUMMARY | 2025-07-03 08:44 | XMS_ITS | Encounter Summary ---
Author Organization [facility] Address [address] [place] [address] Phone Care Team Providers Care Structural Designer Name Role Phone Shar Rodriguez MD Primary Care Provider [phone] Tong Becker MD Primary Care Provider [phone] Encounter Details Date Type Department Care Team (Late st Contact Info) Description 08/29/2014 Orders Only [facility] Provider, MD Keon [address] [place] [address] Social History Tobacco Use Types Packs/Day Years Used Date Smoking Tobacco: Never Assessed Comments Unknown Sex and Gender Information Value Date Recorded Sex Assigned at Not on file 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
--- OUTSIDE RECORDS SUMMARY | 2025-07-03 08:44 | XMS_ITS | Encounter Summary ---
Author Organization [facility] Address [address] [place] [address] Phone Care Team Providers Care Sports Athletic Trainer Name Role Phone Shar Rodriguez MD Primary Care Provider [phone] Tong Becker MD Primary Care Provider [phone] Encounter Details Date Type Department Care Team (Late st Contact Info) Description 08/11/2016 Orders Only [facility] ProviderKeon MD [address] [place] [address] Social History Tobacco Use Types Packs/Day Years Used Date Smoking Tobacco: Never Assessed Comments Unknown Sex and Gender Information Value Date Recorded Sex Assigned at Not on file 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 us Historical Provider [facility] KEV RODRIGUEZ Final Result documented in this encounter Visit Diagnoses Not on filedocumented in this encounter Care Teams Sports Athletic Trainer Relationship Specialty Start Date End Date Shar Rodriguez MD PCP - General 12/21/16 11/05/20 Tong Becker MD PCP - General Family Medicine 11/06/20 documented as of this encounter
--- OUTSIDE RECORDS SUMMARY | 2025-07-03 08:44 | XMS_ITS | Encounter Summary ---
Author Organization [facility] Address [address] [place] [address] Phone Care Team Providers Care Production Line Operator Name Role Phone Shar Rodriguez MD Primary Care Provider [phone] Tong Becker MD Primary Care Provider [phone] Encounter Details Date Type Department Care Team (Late st Contact Info) Description 05/10/2016 Orders Only [facility] ProviderKeon MD [address] [place] [address] Social History Tobacco Use Types Packs/Day Years Used Date Smoking Tobacco: Never Assessed Comments Unknown Sex and Gender Information Value Date Recorded Sex Assigned at Not on file 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 us Historical Provider [facility] CARDI[facility] SERVICES KEV RODRIGUEZ Final Result documented in this encounter Visit Diagnoses Not on filedocumented in this encounter Care Teams Production Line Operator Relationship Specialty Start Date End Date Shar Rodriguez MD PCP - General 12/21/16 11/05/20 Tong Becker MD PCP - General Family Medicine 11/06/20 documented as of this encounter
--- OUTSIDE RECORDS SUMMARY | 2025-07-03 08:45 | XMS_ITS | Encounter Summary ---
Author Organization [facility] Address [address] [place] [address] Phone Care Team Providers Care Reflector Driller And Deburrer Name Role Phone Shar Rodriguez MD Primary Care Provider [phone] Tnog Becker MD Primary Care Provider [phone] Encounter Details Date Type Department Care Team (Late st Contact Info) Description 09/22/2016 Orders Only [facility] ProviderKeon MD [address] [place] [address] Social History Tobacco Use Types Packs/Day Years Used Date Smoking Tobacco: Never Assessed Comments Unknown Sex and Gender Information Value Date Recorded Sex Assigned at Not on file 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 us Historical Provider CV CARDIAC SERVICES KEV RODRIGUEZ Final Result documented in this encounter Visit Diagnoses Not on filedocumented in this encounter Care Teams Reflector Driller And Deburrer Relationship Specialty Start Date End Date Shar Rodriguez MD PCP - General 12/21/16 11/05/20 Tong Becker MD PCP - General Family Medicine 11/06/20 documented as of this encounter
--- OUTSIDE RECORDS SUMMARY | 2025-07-03 08:45 | XMS_ITS | Encounter Summary ---
Author Organization [facility] Address [address] [place] [address] Phone Care Team Providers Care Cone Former Name Role Phone Shar Rodriguez MD Primary Care Provider [phone] Tong Becker MD Primary Care Provider [phone] Encounter Details Date Type Department Care Team (Late st Contact Info) Description 05/24/2017 Orders Only [facility] Provider, MD Keon [address] [place] [address] Social History Tobacco Use Types Packs/Day Years Used Date Smoking Tobacco: Never Comments Unknown Sex and Gender Information Value Date Recorded Sex Assigned at Not on file 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
--- OUTSIDE RECORDS SUMMARY | 2025-07-03 08:45 | XMS_ITS | Encounter Summary ---
Author Organization [facility] Address [address] [place] [address] Phone Care Team Providers Care Bottle Selector Name Role Phone Shar Rodriguez MD Primary Care Provider [phone] Tong Becker MD Primary Care Provider [phone] Encounter Details Date Type Department Care Team (Late st Contact Info) Description 09/27/2016 Orders Only [facility] CLINCON[facility] ProviderKeon MD [address] [place] [address] Social History Tobacco Use Types Packs/Day Years Used Date Smoking Tobacco: Never Assessed Comments Unknown Sex and Gender Information Value Date Recorded Sex Assigned at Not on file 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 us Historical Provider CV CARDIAC SERVICES KEV RODRIGUEZ Final Result documented in this encounter Visit Diagnoses Not on filedocumented in this encounter Care Teams Bottle Selector Relationship Specialty Start Date End Date Shar Rodriguez MD PCP - General 12/21/16 11/05/20 Tong Becker MD PCP - General Family Medicine 11/06/20 documented as of this encounter
--- OUTSIDE RECORDS SUMMARY | 2025-07-03 08:45 | XMS_ITS | Encounter Summary ---
Author Organization [facility] Address [address] [place] [address] Phone Care Team Providers Care Plating Operator Name Role Phone Shar Rodriguez MD Primary Care Provider [phone] Tong Becker MD Primary Care Provider [phone] Encounter Details Date Type Department Care Team (Late st Contact Info) Description 11/09/2016 Orders Only [facility] CLINCON[facility] ProviderKeon MD [address] [place] [address] Social History Tobacco Use Types Packs/Day Years Used Date Smoking Tobacco: Never Assessed Comments Unknown Sex and Gender Information Value Date Recorded Sex Assigned at Not on file 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 us Historical Provider CV CARDIAC SERVICES KEV RODRIGUEZ Final Result documented in this encounter Visit Diagnoses Not on filedocumented in this encounter Care Teams Plating Operator Relationship Specialty Start Date End Date Shar Rodriguez MD PCP - General 12/21/16 11/05/20 Tong Becker MD PCP - General Family Medicine 11/06/20 documented as of this encounter
== END 2025-07-03 08:31 | disposition home or self-care (01) ==
LOC: CHSIMG 08:33
PROVIDERS: PCP Family Medicine; Visit Provider Obstetrics & Gynecology
DX: Z12.31 Encounter for screening mammogram for malignant neoplasm of breast (principal)
CPT/HCPCS: 77063; 77067